=== PATIENT | male | born 1935 | race Caucasian/White ===

== ENCOUNTER 2017-09-04 10:47 | Inpatient (IN) ==
--- NOTE | 2017-09-04 11:52 | Emergency Department Note ---
Disposition Clinical Impression: Hyponatremia GI bleed Qualifiers: GI bleed type/associated pathology: melena Qualified Code(s): K92.1 - Melena Anemia Qualifiers: Anemia type: unspecified type Qualified Code(s): D64.9 - Anemia, unspecified Disposition: Admitted As Inpatient Condition: Fair Referrals: Andrea Rojas Jr, MD [Primary Care Provider] - Forms: ED Satisfaction Letter Time of Disposition: 12:30 General Adult HPI - General Chief complaint: ED Shortness of Breath/Dyspnea Stated complaint: FABRICIO, black stool Time Seen by Provider: 09/04/17 10:56 Source: patient Mode of arrival: ambulatory Limitations: no limitations Nursing Notes Reviewed: Yes Vital Signs Reviewed: Yes - History of Present Illness HPI Narrative: 82-year-old male with a history of CABG on Plavix and aspirin presents for evaluation of dyspnea. Patient also has a history of COPD. Patient states evening he short of breath over the past month. Notes worse with exertion and climbing stairs. Denies any chest pain. Denies any fevers or cough. Patient has noted darker stools over the past week. Patient has history of GI bleed. Denies history of ulcer disease. States he had a colonoscopy in the remote past. Denies any abdominal pain, nausea, vomiting. Patient does live at home. Patient denies any recent falls or head injury. Pain Scale: 0 - Related Data Home Medications Medication Instructions Recorded Confirmed Aspirin 81 mg PO DAILY 01/21/16 09/04/17 Atorvastatin [Lipitor] 40 mg PO HS 01/21/16 09/04/17 Clopidogrel [Plavix] 75 mg PO DAILY 01/21/16 09/04/17 Dutasteride 0.5 mg PO DAILY 01/21/16 09/04/17 Fenofibrate Nanocrystallized 145 mg PO DAILY 01/21/16 09/04/17 [Tricor] Fexofenadine HCl [Allergy Relief] 180 mg PO DAILY 01/21/16 09/04/17 Folic Acid 1 mg PO DAILY 01/21/16 09/04/17 Nitroglycerin [Nitrostat] 0.4 mg SL Q5M PRN 01/21/16 09/04/17 Omeprazole [PriLOSEC] 20 mg PO DAILY 01/21/16 09/04/17 Tamsulosin [Flomax] 0.4 mg PO DAILY 01/21/16 09/04/17 Valsartan [Diovan] 80 mg PO DAILY 01/21/16 09/04/17 Fluticasone Propionate [Flovent 2 puff IJ BID 09/04/17 09/04/17 Hfa] Metoprolol Tartrate [Lopressor] 50 mg PO BID 09/04/17 09/04/17 Allergies Allergy/AdvReac Type Severity Reaction Status Date / Time Penicillins [PCN] Allergy Hives Verified 01/21/16 16:47 All systems ED: reviewed and negative except as stated. Constitutional: Denies: fever Cardiovascular: Denies: chest pain, palpitations Respiratory: Reports: dyspnea. Denies: cough Gastrointestinal: Denies: abdominal pain, nausea, vomiting Past Medical History - Past Medical History Source: patient Medical history: Reports: asthma, COPD, coronary artery disease, hyperlipidemia , hypertension, myocardial infarction Surgical history: Reports: angioplasty/stent, cataract, coronary bypass (CABG) Psychiatric history: Reports: no psych history - Social History Smoking Status: Former smoker Smokeless Tobacco Status: No Alcohol use: Reports: rarely Drug use: Reports: none Physical Exam - General Limitations: no limitations General appearance: alert, in no apparent distress - Head Head exam: atraumatic, normal inspection - Eye Eye exam: Present: normal appearance, EOMI - ENT ENT exam: normal exam, mucous membranes moist - Neck Neck exam: Present: normal inspection, trachea midline - Chest Chest inspection: Present: normal inspection, symmetric chest wall rise - Respiratory Respiratory exam: Present: normal lung sounds bilaterally. Absent: respiratory distress - Cardiovascular Cardiovascular exam: Present: regular rate, normal rhythm. Absent: systolic murmur - Abdominal Exam Abdominal exam: Present: soft, Non-Tender - Rectal Exam Care Tech present during exam: No Rectal exam: Present: normal inspection, normal rectal tone, black stool - Extremities Exam Extremities exam: Present: normal inspection. Absent: pedal edema - Expanded Lower Extremity Exam Neurovascular/Tendon exam: Present: normal capillary refill. Absent: pulse deficit, motor deficit, sensory deficit - Back Exam Back exam: Present: normal inspection - Neurological Exam Neurological exam: Present: alert, CN II-XII intact - Skin Skin exam: Present: warm, dry, intact, normal color. Absent: pallor Course Course Narrative: Patient seen and examined. Patient's dyspnea over the past month. Patient does have risk factors for GI bleed with dark stool. Patient will get basic labs including a type and screen, troponin patient also get a chest x-ray EKG. Disposition likely admission. - Reevaluation(s) Reevaluation #1: Patient seen and examined. Patient's updated on plan of care. We will page endoscopy. Time: 12:37 - Consultations Consultation #1: Discussed the case with Dr. Lugo who will see the patient consult. Time: 12:43 Vital Signs Temperature 98.0 F 09/04/17 10:48 Pulse Rate 75 09/04/17 10:48 Respiratory Rate 16 09/04/17 10:48 Blood Pressure 119/68 09/04/17 10:48 O2 Sat by Pulse Oximetry 98 09/04/17 10:48 Temperature 98.0 F 09/04/17 11:02 Pulse Rate 73 09/04/17 12:53 Respiratory Rate 18 09/04/17 12:53 Blood Pressure 112/51 09/04/17 12:53 O2 Sat by Pulse Oximetry 98 09/04/17 12:53 Oxygen Delivery Oxygen Delivery Room Air Medical Decision Making - MDM Narrative Medical decision making narrative: 82-year-old male presents with dyspnea as well as dark stools. Patient has been having melanotic stools over the past week. No history of GI bleed in the past remote colonoscopy. Patient was evaluated and shows mild drop in his hemoglobin. Patient does not require transfusion. No troponin elevation or EKG changes. Patient's chest x-ray shows atelectasis. Clinically the patient does not have an infection or pneumonia. Patient does have a cold blood in his stool. Patient will be admitted to hospital service for GI bleed. Patient's on Plavix and aspirin due to his history of heart disease. Patient was not given any blood products during the ED course as the patient's been stable. Patient's resting comfortably in multiple evaluations. - Lab Data Lab results reviewed: Yes I reviewed the patient's lab results. Result diagrams: 09/04/17 11:31 09/04/17 11:31 Lab Results 09/04/17 09/04/17 09/04/17 Range/Units 11:31 11:31 11:31 WBC 6.5 (4.3-11.1) K/mcL RBC 2.98 L (4.19-5.50) M/mcL Hgb 9.6 L (12.9-16.9) g/dL Hct 27.8 L (37.5-50.1) % MCV 93.3 (83.0-100.0) fL MCH 32.2 (28.0-33.3) pg MCHC 34.5 (31.6-35.5) g/dL RDW 13.4 (11.5-14.5) % Plt Count 327 (140-400) K/mcL MPV 10.0 (9.4-12.4) fL Immature Gran % 0.9 (0-4) % Seg Neutrophils % 61.4 % Lymphocytes % 24.0 % Monocytes % 11.3 % Eosinophils % 1.9 % Basophils % 0.5 % Neutrophils # 4.0 (1.6-8.9) K/mcL Lymphocytes # 1.6 (0.6-4.6) K/mcL Monocytes # 0.7 (0.0-1.3) K/mcL Eosinophils # 0.1 (0.0-0.6) K/mcL Basophils # 0.0 (0.0-0.2) K/mcL PT 12.8 H (9.4-12.1) Seconds INR 1.1 Sodium 126 L (136-145) mEq/L Potassium 4.6 (3.5-5.1) mEq/L Chloride 98 (98-107) mEq/L Carbon Dioxide 23 (23-29) mEq/L BUN 25 H (8-23) mg/dL Creatinine 1.03 (0.70-1.30) mg/dL Est GFR ( Amer) > 60 (> 60) Est GFR (Non-Af Amer) > 60 (> 60) BUN/Creatinine Ratio 24 (6-26) Glucose 106 H (70-105) mg/dL Calculated Osmolality 267 L (280-300) Calcium 9.7 (8.6-10.3) mg/dL Troponin I < 0.03 (< 0.04) ng/mL B-Natriuretic Peptide (Less than 100) pg/mL Stool Occult Bld Scrn (Negative) Blood Type Antibody Screen 09/04/17 09/04/17 09/04/17 Range/Units 11:31 11:31 11:31 WBC (4.3-11.1) K/mcL RBC (4.19-5.50) M/mcL Hgb (12.9-16.9) g/dL Hct (37.5-50.1) % MCV (83.0-100.0) fL MCH (28.0-33.3) pg MCHC (31.6-35.5) g/dL RDW (11.5-14.5) % Plt Count (140-400) K/mcL MPV (9.4-12.4) fL Immature Gran % (0-4) % Seg Neutrophils % % Lymphocytes % % Monocytes % % Eosinophils % % Basophils % % Neutrophils # (1.6-8.9) K/mcL Lymphocytes # (0.6-4.6) K/mcL Monocytes # (0.0-1.3) K/mcL Eosinophils # (0.0-0.6) K/mcL Basophils # (0.0-0.2) K/mcL PT (9.4-12.1) Seconds INR Sodium (136-145) mEq/L Potassium (3.5-5.1) mEq/L Chloride (98-107) mEq/L Carbon Dioxide (23-29) mEq/L BUN (8-23) mg/dL Creatinine (0.70-1.30) mg/dL Est GFR ( Amer) (> 60) Est GFR (Non-Af Amer) (> 60) BUN/Creatinine Ratio (6-26) Glucose (70-105) mg/dL Calculated Osmolality (280-300) Calcium (8.6-10.3) mg/dL Troponin I (< 0.04) ng/mL B-Natriuretic Peptide 100 H (Less than 100) pg/mL Stool Occult Bld Scrn Positive A (Negative) Blood Type O POSITIVE Antibody Screen NEGATIVE - Radiology Data Radiology results reviewed: Yes I reviewed the patient's radiology results. Chest X-Ray 09/04/17 11:16 IMPRESSION: Worsening scarring/ atelectasis in the bases. Superimposed infection also a consideration. D/ / Chely May MD / Chely May MD Interpreting Provider: Chely May MD - EKG Data EKG #1 EKG attestation: Yes I reviewed and interpreted this EKG. EKG shows normal: sinus rhythm Rate: normal Rhythm: NSR [place]/QRS: right axis deviation, RBBB T wave inversions noted in: v1, v2 Interpretation: no acute changes, nonspecific ST-T wave changes S.B.A.R. - S.B.A.RFilomena Situation: Demographics Background: Presenting Complaint Assessment: Vital Signs, Course and respsone to treatment, Patient/Family Expectation Recommendation: Barrier(s) to disposition, Recommendation based on pending studies, treatments, or consults S.B.A.RFilomena Report Given to: Dr. Markell Alcantar Repor Time: 12:35 Attestation Statement - Attestation Attestation: I, Brayan Klein DO, examined this patient [id number] and my medical decision-making was reviewed with Dr. Vamshi Tirado, Resident Physician. I agree with the documented findings, disposition and treatment plan as described except to the extent set forth below. Please see my progress notes for details.
[2017-09-04 12:05] LABS: INR 1.1; Prothrombin Time 12.8 Seconds (9.4-12.1)
[2017-09-04 12:06] LABS: Basophils % 0.5 %; Eosinophils # 0.1 K/mcL (0.0-0.6); Eosinophils % 1.9 %; Hematocrit 27.8 % (37.5-50.1); Hemoglobin 9.6 g/dL (12.9-16.9); Immature Granulocytes % 0.9 % (0-4); Lymphocytes # 1.6 K/mcL (0.6-4.6); Mean Corpuscular HGB Conc 34.5 g/dL (31.6-35.5); Mean Corpuscular Hemoglobin 32.2 pg (28.0-33.3); Mean Corpuscular Volume 93.3 fL (83.0-100.0); Monocytes # 0.7 K/mcL (0.0-1.3); Monocytes % 11.3 %; Platelet Count 327 K/mcL (140-400); Red Blood Count 2.98 M/mcL (4.19-5.50); Red Cell Distribution Width 13.4 % (11.5-14.5); Segmented Neutrophils % 61.4 %
[2017-09-04 12:16] LABS: BUN/Creatinine Ratio 24 (6-26); Blood Urea Nitrogen 25 mg/dL (8-23); Calcium 9.7 mg/dL (8.6-10.3); Carbon Dioxide 23 mEq/L (23-29); Chloride 98 mEq/L (98-107); Glucose 106 mg/dL (70-105); Osmolality,Calculated 267 (280-300); Potassium 4.6 mEq/L (3.5-5.1); Sodium 126 mEq/L (136-145); Troponin I < 0.03 ng/mL (< 0.04); eGFR For African Americans > 60 (> 60); eGFR For Non-African Americans > 60 (> 60)
[2017-09-04] MEDS ORDERED: Pantoprazole 40 MG VIAL IVP ONE (12:30)
--- NOTE | 2017-09-04 12:38 | Emergency Department Note ---
Disposition Clinical Impression: Anemia Qualifiers: Anemia type: unspecified type Qualified Code(s): D64.9 - Anemia, unspecified GI bleed Qualifiers: GI bleed type/associated pathology: melena Qualified Code(s): K92.1 - Melena Disposition: Admitted As Inpatient Condition: Fair Referrals: Andrea Rojas Jr, MD [Primary Care Provider] - Forms: ED Satisfaction Letter Time of Disposition: 12:38 General Adult HPI - General Chief complaint: ED Shortness of Breath/Dyspnea Stated complaint: FABRICIO, black stool Time Seen by Provider: 09/04/17 10:56 Source: patient Mode of arrival: ambulatory Limitations: no limitations - History of Present Illness Pain Scale: 0 - Related Data Home Medications Medication Instructions Recorded Confirmed Aspirin 81 mg PO DAILY 01/21/16 01/21/16 Atorvastatin [Lipitor] 40 mg PO HS 01/21/16 01/21/16 Budesonide [Pulmicort Flexhaler 180 mcg IH DAILY 01/21/16 01/21/16 180mcg] Clopidogrel [Plavix] 75 mg PO DAILY 01/21/16 01/21/16 Dutasteride 0.5 mg PO DAILY 01/21/16 01/21/16 Fenofibrate Nanocrystallized 145 mg PO DAILY 01/21/16 01/21/16 [Tricor] Fexofenadine HCl [Allergy Relief] 180 mg PO DAILY 01/21/16 01/21/16 Folic Acid 1 mg PO DAILY 01/21/16 01/21/16 Metoprolol [Lopressor] 100 mg PO BID 01/21/16 01/21/16 Nitroglycerin [Nitrostat] 0.4 mg SL Q5M PRN 01/21/16 01/21/16 Omeprazole [PriLOSEC] 20 mg PO DAILY 01/21/16 01/21/16 Tamsulosin [Flomax] 0.4 mg PO DAILY 01/21/16 01/21/16 Triamcinolone Acet 0.1% CRM 1 appl TP BID 01/21/16 01/21/16 [Kenalog] Valsartan [Diovan] 80 mg PO BID 01/21/16 01/21/16 Allergies Allergy/AdvReac Type Severity Reaction Status Date / Time Penicillins [PCN] Allergy Hives Verified 01/21/16 16:47 Constitutional: Denies: fever Cardiovascular: Denies: chest pain, palpitations Respiratory: Reports: dyspnea. Denies: cough Gastrointestinal: Denies: abdominal pain, nausea, vomiting Past Medical History - Past Medical History Medical history: Reports: asthma, COPD, coronary artery disease, hyperlipidemia , hypertension, myocardial infarction Surgical history: Reports: angioplasty/stent, cataract, coronary bypass (CABG) Psychiatric history: Reports: no psych history - Social History Smoking Status: Former smoker Smokeless Tobacco Status: No Alcohol use: Reports: rarely Drug use: Reports: none Physical Exam - General Limitations: no limitations General appearance: alert, in no apparent distress Course Vital Signs Temperature 98.0 F 09/04/17 10:48 Pulse Rate 75 09/04/17 10:48 Respiratory Rate 16 09/04/17 10:48 Blood Pressure 119/68 09/04/17 10:48 O2 Sat by Pulse Oximetry 98 09/04/17 10:48 Temperature 98.0 F 09/04/17 11:02 Pulse Rate 71 09/04/17 12:11 Respiratory Rate 18 09/04/17 12:11 Blood Pressure 111/60 09/04/17 12:11 O2 Sat by Pulse Oximetry 98 09/04/17 12:11 Oxygen Delivery Oxygen Delivery Room Air Medical Decision Making - Lab Data Result diagrams: 09/04/17 11:31 09/04/17 11:31 Lab Results 09/04/17 09/04/17 09/04/17 Range/Units 11:31 11:31 11:31 WBC 6.5 (4.3-11.1) K/mcL RBC 2.98 L (4.19-5.50) M/mcL Hgb 9.6 L (12.9-16.9) g/dL Hct 27.8 L (37.5-50.1) % MCV 93.3 (83.0-100.0) fL MCH 32.2 (28.0-33.3) pg MCHC 34.5 (31.6-35.5) g/dL RDW 13.4 (11.5-14.5) % Plt Count 327 (140-400) K/mcL MPV 10.0 (9.4-12.4) fL Immature Gran % 0.9 (0-4) % Seg Neutrophils % 61.4 % Lymphocytes % 24.0 % Monocytes % 11.3 % Eosinophils % 1.9 % Basophils % 0.5 % Neutrophils # 4.0 (1.6-8.9) K/mcL Lymphocytes # 1.6 (0.6-4.6) K/mcL Monocytes # 0.7 (0.0-1.3) K/mcL Eosinophils # 0.1 (0.0-0.6) K/mcL Basophils # 0.0 (0.0-0.2) K/mcL PT 12.8 H (9.4-12.1) Seconds INR 1.1 Sodium 126 L (136-145) mEq/L Potassium 4.6 (3.5-5.1) mEq/L Chloride 98 (98-107) mEq/L Carbon Dioxide 23 (23-29) mEq/L BUN 25 H (8-23) mg/dL Creatinine 1.03 (0.70-1.30) mg/dL Est GFR ( Amer) > 60 (> 60) Est GFR (Non-Af Amer) > 60 (> 60) BUN/Creatinine Ratio 24 (6-26) Glucose 106 H (70-105) mg/dL Calculated Osmolality 267 L (280-300) Calcium 9.7 (8.6-10.3) mg/dL Troponin I < 0.03 (< 0.04) ng/mL B-Natriuretic Peptide (Less than 100) pg/mL Stool Occult Bld Scrn (Negative) Blood Type Antibody Screen 09/04/17 09/04/17 09/04/17 Range/Units 11:31 11:31 11:31 WBC (4.3-11.1) K/mcL RBC (4.19-5.50) M/mcL Hgb (12.9-16.9) g/dL Hct (37.5-50.1) % MCV (83.0-100.0) fL MCH (28.0-33.3) pg MCHC (31.6-35.5) g/dL RDW (11.5-14.5) % Plt Count (140-400) K/mcL MPV (9.4-12.4) fL Immature Gran % (0-4) % Seg Neutrophils % % Lymphocytes % % Monocytes % % Eosinophils % % Basophils % % Neutrophils # (1.6-8.9) K/mcL Lymphocytes # (0.6-4.6) K/mcL Monocytes # (0.0-1.3) K/mcL Eosinophils # (0.0-0.6) K/mcL Basophils # (0.0-0.2) K/mcL PT (9.4-12.1) Seconds INR Sodium (136-145) mEq/L Potassium (3.5-5.1) mEq/L Chloride (98-107) mEq/L Carbon Dioxide (23-29) mEq/L BUN (8-23) mg/dL Creatinine (0.70-1.30) mg/dL Est GFR ( Amer) (> 60) Est GFR (Non-Af Amer) (> 60) BUN/Creatinine Ratio (6-26) Glucose (70-105) mg/dL Calculated Osmolality (280-300) Calcium (8.6-10.3) mg/dL Troponin I (< 0.04) ng/mL B-Natriuretic Peptide 100 H (Less than 100) pg/mL Stool Occult Bld Scrn Positive A (Negative) Blood Type O POSITIVE Antibody Screen NEGATIVE Attestation Statement - Attestation Attestation: I, Brayan Klein DO, examined this patient [id number] and my medical decision-making was reviewed with Dr. Vamshi Tirado, Resident Physician. I agree with the documented findings, disposition and treatment plan as described except to the extent set forth below. Please see my progress notes for details. 82-year-old male presents to the emergency room multiple vague complaints. Over the last several days to weeks patient is been experiencing some increased work of breathing and going up and down stairs. He denies any chest pain fevers chills nausea vomiting or diarrhea. Denies any headache or vision change. He is on a blood thinner home secondary to chronic atrial fibrillation. Patient denies any falls or trauma. He is describing shortness of breath vomiting with exertion. He also has had dark melenic colored stool. Patient has not had a colonoscopy or EGD completed in greater than 10 years just prior to when his . Patient otherwise resting comfortably in the bed his vital signs are stable. His head is atraumatic his conjunctiva appear to be normal. He was seen by his PCP yesterday and had a hemoglobin of 9.9 at that time. They recommended they come in the emergency room today for further evaluation considering the stool and his complaints. His lungs are clear to auscultation his heart is regular. His abdomen is soft nontender nondistended with no guarding no rigidity no peritoneal-like symptoms. He moves all 4 of his extremities without any difficulty or signs of ataxia or deficit. Pulses are intact in the radial and DP and PT distributions bilaterally and there are symmetrical. Patient is concerning for possible gastric bleed with Hemoccult positive stool. This test will be sent at this time secondary to the discoloration stool. Denies being on any medications or could cause that coloration. He also is concerning for fluid overload versus heart failure. He has not had his pacemaker interrogated and has not been seen by cardiology quite a long time. Patient does appear to be clinically stable at this point but does have concerning etiology considering he does live at home by himself and tries to take care of himself home. He has to go up and down several flights of stairs at his house to take care of his ask of daily living. Full workup including EKG chest x-ray CBC chemistry troponin as well as Hemoccult testing will be ordered at this time. Patient is otherwise stable. Disposition pending the full workup and treatment course. See detailed documentation of the physical exam, medical intervention, medical decision-making and disposition in the resident physician's note. No critical care applied the patient's treatment course at this time. [address] metcalf has accepted the patient wants GI has been consult. Patient has what appears to be symptomatic anemia with another drop in his hemoglobin since yesterday. He is positive for occult blood in the stool. Otherwise remainder of his workup is unremarkable including EKG chest x-ray and laboratory evaluation. Consultation will be placed and patient will be evaluated. Patient otherwise clinically stable. See detailed documentation the physical exam, medical intervention, medical decision-making and disposition. Patient will be observed here in the emergency room until admission process is completed.
[2017-09-04] MEDS ORDERED: Naloxone 0.4 MG/ML INJ IVP PRN (14:46)
--- NOTE | 2017-09-04 16:38 | Internal Med History&Physical ---
Date of Encounter: 09/05/17 Time of Encounter: 16:35 Internal Medicine - H&P: HPI Chief complaint: Shortness of breath, fatigue and black stools History of present illness: Mr. Fofana is a 82 year old male with pmh of COPD, CAD, hyperlipidemia, hypertension presenting with complaints of weakness, shortness of breath and black stools for about a week. Patient notes he has been experiencing increased work of breathing recently on minimal exertion and reports his stools have been progressively darker over the past week to the point that they are now black. He denies any abdominal pain, nausea , vomiting or any other acute symptoms. He went to his PCP who noted his hemoglobin was low and advised him to come to the ER> hemoglobin was 9.6 in the ER and surgery has been consulted for possible endoscopy Past Med Surg Social Fam HX - Past Medical History Medical history: asthma, COPD, coronary artery disease, hyperlipidemia, hypertension, myocardial infarction Psychiatric history: no psych history - Past Surgical History Surgical History: angioplasty/stent, cataract, coronary bypass (CABG) Additional surgical history: 5 stents - Social History Smoking Status: Former smoker Smokeless Tobacco Status: No Alcohol use: rarely Drug use: none - Family History Mother Living Status: Hx Family Cardiac Disorders: No Hx Family Respiratory Disorders: No Hx Family Cancer: No Hx Family GI Disorders: No Hx Family Endocrine Disorder: No Hx Family Neuromuscular Disorders: No Hx Family Neurologic Disorders: No Hx Family HEENT Disorders: No Hx Family Autoimmune Disorders: No Father Living Status: Hx Family Cardiac Disorders: Yes ([place]) Hx Family Respiratory Disorders: No Hx Family Cancer: No Hx Family GI Disorders: No Hx Family Endocrine Disorder: No Hx Family Neuromuscular Disorders: No Hx Family Neurologic Disorders: No Hx Family HEENT Disorders: No Hx Family Autoimmune Disorders: No Internal Medicine - H&P: Meds Aspirin 81 mg PO DAILY 01/21/16 [History] Atorvastatin [Lipitor] 40 mg PO HS 01/21/16 [History] Clopidogrel [Plavix] 75 mg PO DAILY 01/21/16 [History] Dutasteride 0.5 mg PO DAILY 01/21/16 [History] Fenofibrate Nanocrystallized [Tricor] 145 mg PO DAILY 01/21/16 [History] Fexofenadine HCl [Allergy Relief] 180 mg PO DAILY 01/21/16 [History] Folic Acid 1 mg PO DAILY 01/21/16 [History] Nitroglycerin [Nitrostat] 0.4 mg SL Q5M PRN 01/21/16 [History] Omeprazole [PriLOSEC] 20 mg PO DAILY 01/21/16 [History] Tamsulosin [Flomax] 0.4 mg PO DAILY 01/21/16 [History] Valsartan [Diovan] 80 mg PO DAILY 01/21/16 [History] Fluticasone Propionate [Flovent Hfa] 2 puff IJ BID 09/04/17 [History] Metoprolol Tartrate [Lopressor] 50 mg PO BID 09/04/17 [History] 3 Allergy/AdvReac Type Severity Reaction Status Date / Time Penicillins [PCN] Allergy Hives Verified 01/21/16 16:47 All Systems PM: A 10-system review of systems was performed and is negative for pertinent findings except as documented above in the HPI. - Constitutional Constitutional: no chills, no fever(s), no night sweats - EENT Eyes: no change in vision, no discharge, no pain, no photophobia Ears: no ear discharge, no ear pain, no tinnitus Nose, mouth and throat: no dysphagia, no nasal discharge, no neck pain, no sore throat - Cardiovascular Cardiovascular ROS IM: dyspnea on exertion, no chest pain, no diaphoresis, no dyspnea, no lightheadedness, no palpitations, no syncope - Respiratory Respiratory: dyspnea, no cough, no wheezing, no excessive phlegm production - Gastrointestinal Gastrointestinal: melena, no abdominal pain, no diarrhea, no hematemesis, no hematochezia, no nausea, no vomiting - Musculoskeletal Musculoskeletal ROS IM: no numbness, no tingling - Integumentary Integumentary IM: no rash, no unusual bruising - Neurological Neurological ROS: no confusion, no convulsions, no focal weakness, no numbness, no tingling, no tremor(s) - Hematologic/Lymphatic Hematologic/Lymphatic: no easy bruising - Constitutional Vitals: Temp Pulse Resp BP Pulse Ox 98.0 F 75 18 107/93 97 09/04/17 11:02 09/04/17 14:07 09/04/17 14:07 09/04/17 14:07 09/04/17 16:27 - Head Head exam: Present: atraumatic, normocephalic - Eye Eye exam: Present: PERRL, conjuntiva pink, sclera anicteric Pupils: Present: PERRL - Neck Neck exam general surgery: Present: supple, trachea midline. Absent: lymphadenopathy - Respiratory Respiratory exam: Present: CTAB. Absent: accessory muscle use, rales, rhonchi, wheezes - Cardiovascular Cardiovascular exam: Present: RRR, +S1, +S2. Absent: diastolic murmur, gallop, rubs, systolic murmur - GI/Abdominal GI/Abdominal exam: Present: normal bowel sounds, soft, no peritoneal signs. Absent: distended, tenderness - Extremities Exam Extremities exam: Present: warm, radial pulses palpable and symmetrical. Absent : calf tenderness, cyanotic, pedal edema Additional comments: trace pitting edema - Neurological Exam Neurological exam: Present: CN II-XII intact, oriented X3, no focal deficits. Absent: pronater drift, facial droop, speech deficit - Skin Skin exam: Present: dry, intact Internal Med - H&P Results - Labs CBC & Chem 7: 09/05/17 06:44 09/05/17 01:16 - Assessment and plan (1) Acute GI bleeding Current Visit: Yes Status: Acute Assessment and plan: Reports dark stools for a week. On pronix IV BID, clear liquid. Surgery has been consulted. Monitor CBC q 8. Plan to transfuse for hgb less than 7 (2) Symptomatic anemia Current Visit: Yes Status: Acute Assessment and plan: With acute blood loss. See #1 (3) Hyponatremia Current Visit: Yes Status: Acute Assessment and plan: Normal saline at 75 cc/hr (4) Community acquired pneumonia Current Visit: Yes Status: Acute Assessment and plan: CXR shows opacities. Will start on levaquin. Obtain blood cultures Qualifiers: Laterality: unspecified laterality Qualified Code(s): J18.9 - Pneumonia, unspecified organism (5) Hypertension Current Visit: Yes Status: Acute Assessment and plan: Continue valsartan and metoprolol Qualifiers: Qualified Code(s): I10 - Essential (primary) hypertension (6) DVT prophylaxis Current Visit: Yes Status: Acute Assessment and plan: scd (7) Edema Current Visit: Yes Status: Acute Assessment and plan: trace edema and SOB r/o CHF. Obtain 2d echo Qualifiers: Qualified Code(s): R60.9 - Edema, unspecified - Time Spent With Patient Total time spent is greater than 50% in coordination of care (as documented) at patient's floor/unit and/or counseling patient:
[2017-09-04 18:03] LABS: Basophils % 0.5 %; Eosinophils # 0.1 K/mcL (0.0-0.6); Eosinophils % 2.4 %; Hematocrit 26.8 % (37.5-50.1); Hemoglobin 9.1 g/dL (12.9-16.9); Immature Granulocytes % 0.5 % (0-4); Lymphocytes # 1.5 K/mcL (0.6-4.6); Lymphocytes % 27.3 %; Mean Corpuscular Hemoglobin 31.5 pg (28.0-33.3); Mean Corpuscular Volume 92.7 fL (83.0-100.0); Monocytes # 0.4 K/mcL (0.0-1.3); Monocytes % 8.1 %; Neutrophils # 3.3 K/mcL (1.6-8.9); Platelet Count 337 K/mcL (140-400); Red Blood Count 2.89 M/mcL (4.19-5.50); Red Cell Distribution Width 13.3 % (11.5-14.5); Segmented Neutrophils % 61.2 %
[2017-09-04] MEDS: 0.9 % Sodium Chloride 1,000 ML IVC SCH (18:32)
[2017-09-04] MEDS: Pantoprazole 40 MG VIAL IVP SCH (18:32)
[2017-09-04] MEDS: Levofloxacin 750 MG/150 ML 750 MG/150 ML BAG IVPB SCH (18:50)
--- NOTE | 2017-09-04 20:01 | General Surgery Consult Note ---
Date of Encounter: 09/04/17 Time of Encounter: 19:48 History of Present Illness Consult date: 09/04/17 Requesting physician: Vamshi Tirado History of present illness: 82-year-old male referred to surgical services, covering gastroenterology, for further evaluation progressive shortness of breath, increasing fatigue, melena and anemia. The patient describes black tarry stools for the past week. The patient presented to the emergency department for further evaluation of the symptoms described above. Hemoglobin is currently 9.1 with hematocrit 26.8. (H &H yesterday 9.9 and 29.4; hemoglobin in March 1999 1713.8 with hematocrit 42.2) Patient denies any nausea/vomiting; no fever, chills, or abdominal pain. The patient describes approximate 17 pound weight loss in the past year, approximately 8 pounds since February/2017. Past medical history: CAD with prior [place]; status post CABG as well as coronary stents 5. Coronary stents were last placed several years ago. Patient also has asthma, COPD, hyperlipidemia, and hypertension. Surgical history: CABG, coronary stents 5; tonsillectomy; appendectomy Allergies: Penicillin Medications: Aspirin 81 mg by mouth daily Atorvastatin 40 mg by mouth daily at bedtime Clopidogrel 75 mg by mouth daily Dutasteride 0.5 mg by mouth daily Fenofibrate 145 mg by mouth daily Fexofenadine 180 mg by mouth daily Folic acid 1 mg by mouth daily Nitroglycerin 0.4 mg sublingually as needed every 5 minutes x3 for chest pain Omeprazole 20 mg by mouth daily Tamsulosin 0.4 mg by mouth daily Valsartan 80 mg by mouth daily Fluticasone HFA 2 puffs twice a day Metoprolol 50 mg by mouth twice a day Social history: The patient is , still lives independently; former smoker having smoked 1-1/2 packs per day for 20+ years; he quit a proximally 40 years ago. Patient admits to a history of pure consumption though none in the last few years; he denies any illicit drug use. Physical examination: Age-appropriate, in no acute distress The patient has been afebrile, 97.4, pulse 80, respirations 14, blood pressure 124/71. SPO2 on room air 97 100% Skin: Warm, no obvious junk Cardiac: Regular rate, no appreciable murmur Lungs: Clear bilaterally, no abdominal pain and deep inspiration Abdomen: Soft, nontender. No appreciable intra-abdominal masses. No rebound. Active bowel sounds Extremities: No obvious clubbing, cyanosis or edema. Laboratories: White count 5.5, hemoglobin 9.1, hematocrit 26.8. Platelet count 337,000. PT 12.8, INR 1.1 Sodium 126, potassium 4.6, chloride 98, BUN 25, creatinine 1.03. Impression: 82-year-old male, admitted after presenting to [facility] emergency department with progressive shortness of breath, increasing fatigue and approximately one-week history of melena. H&H has fallen to current levels 9.1/26.8. History and clinical findings are consistent with upper GI hemorrhage, PUD/gastritis/duodenitis/GERD. EGD was discussed. The patient is willing to undergo this evaluation. Risks include hemorrhage, infection, cramping abdominal pain, bloating, and perforation. The patient has been consuming clear liquids. The EGD will be scheduled in the a.m. Consent for this procedure has been obtained. Past Med Surg Social Fam HX - Past Medical History Medical history: asthma, COPD, coronary artery disease, hyperlipidemia, hypertension, myocardial infarction Psychiatric history: no psych history - Past Surgical History Surgical History: angioplasty/stent, cataract, coronary bypass (CABG) Additional surgical history: 5 stents - Social History Smoking Status: Former smoker Smokeless Tobacco Status: No Alcohol use: rarely Drug use: none - Family History Mother Living Status: Hx Family Cardiac Disorders: No Hx Family Respiratory Disorders: No Hx Family Cancer: No Hx Family GI Disorders: No Hx Family Endocrine Disorder: No Hx Family Neuromuscular Disorders: No Hx Family Neurologic Disorders: No Hx Family HEENT Disorders: No Hx Family Autoimmune Disorders: No Father Living Status: Hx Family Cardiac Disorders: Yes ([place]) Hx Family Respiratory Disorders: No Hx Family Cancer: No Hx Family GI Disorders: No Hx Family Endocrine Disorder: No Hx Family Neuromuscular Disorders: No Hx Family Neurologic Disorders: No Hx Family HEENT Disorders: No Hx Family Autoimmune Disorders: No Medications and Allergies Aspirin 81 mg PO DAILY 01/21/16 [History] Atorvastatin [Lipitor] 40 mg PO HS 01/21/16 [History] Clopidogrel [Plavix] 75 mg PO DAILY 01/21/16 [History] Dutasteride 0.5 mg PO DAILY 01/21/16 [History] Fenofibrate Nanocrystallized [Tricor] 145 mg PO DAILY 01/21/16 [History] Fexofenadine HCl [Allergy Relief] 180 mg PO DAILY 01/21/16 [History] Folic Acid 1 mg PO DAILY 01/21/16 [History] Nitroglycerin [Nitrostat] 0.4 mg SL Q5M PRN 01/21/16 [History] Omeprazole [PriLOSEC] 20 mg PO DAILY 01/21/16 [History] Tamsulosin [Flomax] 0.4 mg PO DAILY 01/21/16 [History] Valsartan [Diovan] 80 mg PO DAILY 01/21/16 [History] Fluticasone Propionate [Flovent Hfa] 2 puff IJ BID 09/04/17 [History] Metoprolol Tartrate [Lopressor] 50 mg PO BID 09/04/17 [History] 3 Allergy/AdvReac Type Severity Reaction Status Date / Time Penicillins [PCN] Allergy Hives Verified 01/21/16 16:47 Review of Systems All systems PM: The remainder of the systems were reviewed and are negative General Surgery Exam Initial Vital Signs Temp Pulse Resp BP Pulse Ox 98.0 F 75 16 119/68 98 09/04/17 10:48 09/04/17 10:48 09/04/17 10:48 09/04/17 10:48 09/04/17 10:48 Exam Initial Vital Signs Temp Pulse Resp BP Pulse Ox 98.0 F 75 16 119/68 98 09/04/17 10:48 09/04/17 10:48 09/04/17 10:48 09/04/17 10:48 09/04/17 10:48 Results - Labs 09/04/17 17:15 09/04/17 11:31 Abnormal lab results RBC 2.89 M/mcL (4.19-5.50) L 09/04/17 17:15 Hgb 9.1 g/dL (12.9-16.9) L 09/04/17 17:15 Hct 26.8 % (37.5-50.1) L 09/04/17 17:15 PT 12.8 Seconds (9.4-12.1) H 09/04/17 11:31 Sodium 126 mEq/L (136-145) L 09/04/17 11:31 BUN 25 mg/dL (8-23) H 09/04/17 11:31 Glucose 106 mg/dL (70-105) H 09/04/17 11:31 Calculated Osmolality 267 (280-300) L 09/04/17 11:31 B-Natriuretic Peptide 100 pg/mL (Less than 100) H 09/04/17 11:31 Stool Occult Bld Scrn Positive (Negative) A 09/04/17 11:31 All other labs normal. Consult Discharge Plan - Plan Referrals: Andrea Rojas Jr, MD [Primary Care Provider] -
[2017-09-04] MEDS: Beclomethasone 80mcg MDI IH SCH (22:24)
[2017-09-04 22:59] LABS: Basophils % 0.6 %; Eosinophils # 0.2 K/mcL (0.0-0.6); Eosinophils % 3.1 %; Hematocrit 25.2 % (37.5-50.1); Hemoglobin 8.8 g/dL (12.9-16.9); Immature Granulocytes % 0.8 % (0-4); Lymphocytes # 1.4 K/mcL (0.6-4.6); Lymphocytes % 26.2 %; Mean Corpuscular HGB Conc 34.9 g/dL (31.6-35.5); Mean Corpuscular Hemoglobin 32.6 pg (28.0-33.3); Mean Corpuscular Volume 93.3 fL (83.0-100.0); Mean Platelet Volume 9.8 fL (9.4-12.4); Monocytes # 0.6 K/mcL (0.0-1.3); Monocytes % 10.7 %; Platelet Count 269 K/mcL (140-400); Red Cell Distribution Width 13.4 % (11.5-14.5); Segmented Neutrophils % 58.6 %
[2017-09-05] MEDS: Melatonin 3 MG TABLET PO PRN ×2 (01:27→19:43)
[2017-09-05 01:57] LABS: Basophils % 0.5 %; Eosinophils # 0.2 K/mcL (0.0-0.6); Hematocrit 25.5 % (37.5-50.1); Hemoglobin 8.6 g/dL (12.9-16.9); Immature Granulocytes % 0.3 % (0-4); Lymphocytes # 1.1 K/mcL (0.6-4.6); Lymphocytes % 18.8 %; Mean Corpuscular HGB Conc 33.7 g/dL (31.6-35.5); Mean Corpuscular Hemoglobin 31.5 pg (28.0-33.3); Mean Corpuscular Volume 93.4 fL (83.0-100.0); Mean Platelet Volume 10.1 fL (9.4-12.4); Monocytes # 0.6 K/mcL (0.0-1.3); Monocytes % 9.1 %; Neutrophils # 4.2 K/mcL (1.6-8.9); Platelet Count 295 K/mcL (140-400); Red Blood Count 2.73 M/mcL (4.19-5.50); Red Cell Distribution Width 13.3 % (11.5-14.5); Segmented Neutrophils % 68.3 %
[2017-09-05 02:25] LABS: BUN/Creatinine Ratio 22 (6-26); Blood Urea Nitrogen 20 mg/dL (8-23); Carbon Dioxide 23 mEq/L (23-29); Chloride 98 mEq/L (98-107); Glucose 92 mg/dL (70-105); Magnesium 1.1 mg/dL (1.6-2.6); Osmolality,Calculated 264 (280-300); Potassium 4.6 mEq/L (3.5-5.1); Sodium 126 mEq/L (136-145); eGFR For African Americans > 60 (> 60); eGFR For Non-African Americans > 60 (> 60)
[2017-09-05] MEDS: Pantoprazole 40 MG VIAL IVP SCH ×2 (06:17→17:16)
[2017-09-05 07:31] LABS: Basophils % 0.2 %; Eosinophils # 0.1 K/mcL (0.0-0.6); Eosinophils % 2.3 %; Hematocrit 23.4 % (37.5-50.1); Hemoglobin 7.9 g/dL (12.9-16.9); Immature Granulocytes % 0.4 % (0-4); Lymphocytes % 19.8 %; Mean Corpuscular HGB Conc 33.8 g/dL (31.6-35.5); Mean Corpuscular Hemoglobin 30.9 pg (28.0-33.3); Mean Corpuscular Volume 91.4 fL (83.0-100.0); Mean Platelet Volume 10.1 fL (9.4-12.4); Monocytes # 0.5 K/mcL (0.0-1.3); Monocytes % 9.1 %; Neutrophils # 3.6 K/mcL (1.6-8.9); Platelet Count 294 K/mcL (140-400); Red Blood Count 2.56 M/mcL (4.19-5.50); Red Cell Distribution Width 13.4 % (11.5-14.5); Segmented Neutrophils % 68.2 %
--- NOTE | 2017-09-05 07:38 | Electrocardiograph Report ---
[address] [address] Test Date: 2017-09-04 Pat Name: Jefry Fofana Department: 102 Room: [facility] Gender: M Manager Test: : 1935 Requested By: Vmashi Tirado Order Number: [id number] Reading MD: Dipak Grande Measurements Intervals [place] Rate: 71 P: 21 NH: 206 QRS: 266 QRSD: 144 T: 42 QT: 388 QTc: 410 Interpretive Statements SINUS RHYTHM MARKED RIGHT AXIS DEVIATION RIGHT BUNDLE BRANCH BLOCK Electronically Signed On 09-05-2017 7:36:00 EDT by Dipak Grande
[2017-09-05] MEDS: Beclomethasone 80mcg MDI IH SCH ×2 (08:06→20:54)
--- NOTE | 2017-09-05 08:55 | Anesthesia Evaluation PreOp ---
Date of Encounter: 09/05/17 Time of Encounter: 08:53 - Past History Planned Operation: EGD Cardiac History: [place], HTN, Hyperlipidemia, Cardiac Surgery (CABG), Cardiac Stent , Other (CAD) Pulmonary History: Former smoker (quit x 20yrs), COPD PESTICIDE APPLICATOR History: Denies Any Significant HX Other Medical History: GERD Anesthesia History: No Prior Anesthetic Complications, Past Anesthesia (CABG) Alcohol Use: rarely Drug use: none Medications and Allergies Aspirin 81 mg PO DAILY 01/21/16 [History] Atorvastatin [Lipitor] 40 mg PO HS 01/21/16 [History] Clopidogrel [Plavix] 75 mg PO DAILY 01/21/16 [History] Dutasteride 0.5 mg PO DAILY 01/21/16 [History] Fenofibrate Nanocrystallized [Tricor] 145 mg PO DAILY 01/21/16 [History] Fexofenadine HCl [Allergy Relief] 180 mg PO DAILY 01/21/16 [History] Folic Acid 1 mg PO DAILY 01/21/16 [History] Nitroglycerin [Nitrostat] 0.4 mg SL Q5M PRN 01/21/16 [History] Omeprazole [PriLOSEC] 20 mg PO DAILY 01/21/16 [History] Tamsulosin [Flomax] 0.4 mg PO DAILY 01/21/16 [History] Valsartan [Diovan] 80 mg PO DAILY 01/21/16 [History] Fluticasone Propionate [Flovent Hfa] 2 puff IJ BID 09/04/17 [History] Metoprolol Tartrate [Lopressor] 50 mg PO BID 09/04/17 [History] 3 Allergy/AdvReac Type Severity Reaction Status Date / Time Penicillins [PCN] Allergy Hives Verified 01/21/16 16:47 - Meds/Allergy Pre-op Review Medications Reviewed: Yes Allergies Reviewed: Yes Beta Blockers on Current Med List: Yes If Beta Blockers taken, Date/Time (Last Dose taken): 09/04 @ 0835 Anesthesia Results - Labs 09/05/17 06:44 09/05/17 01:16 Anesthesia Exam Selected Entries 09/05/17 08:30 Temperature 97.8 F Pulse Rate 90 Respiratory Rate 16 Blood Pressure 136/76 O2 Sat by Pulse Oximetry 97 NPO (# of Hours): 8 - HEENT Pupil (Motor): EOMI Mallampati: II Oral Opening: Greater than 3 - PESTICIDE APPLICATOR LOC: Oriented PESTICIDE APPLICATOR Motor: Normal RUE, Normal LUE, Normal RLE, Normal LLE, Normal Face PESTICIDE APPLICATOR Sensory: Normal: RUE, LUE, RLE, LLE, Face - Cardiac Rhythm: Regular Murmur: None - Pulmonary Breath Sounds: bilateral Clear Respiratory Effort: Symmetrical Anesthesia Assess/Plan ASA Score: 3 Modified Bismark Scale for Level of Consciousness: Cooperative, oriented, and tranquil Anesthetic Plan: MAC Monitoring Plan: Standard Monitors Recovery Plan: PACU (agrees to MAC)
[2017-09-05] MEDS ORDERED: *HR* Propofol 200 MG/20 ML VIAL IVP ONE (08:59)
[2017-09-05] MEDS ORDERED: *HR* FentaNYL (PF) 100 MCG/2 ML VIAL ONE (09:01)
[2017-09-05] MEDS ORDERED: Tetracaine/Benzocaine/Butamben 200MG/SPRAY (100SPY/BOT) MM ONE (09:46)
[2017-09-05] MEDS: 0.9 % Sodium Chloride 1,000 ML IVC SCH (09:49)
[2017-09-05] MEDS: Loratadine 10 MG TABLET PO SCH (11:05)
[2017-09-05] MEDS: Folic Acid 1 MG TABLET PO SCH (11:05)
[2017-09-05] MEDS: Finasteride 5 MG TABLET PO SCH (11:05)
[2017-09-05] MEDS: Valsartan 80 MG TABLET PO SCH (11:06)
[2017-09-05] MEDS: Fenofibrate 54 MG TABLET PO SCH (11:06)
[2017-09-05] MEDS ORDERED: Isovue-370 500 ML INFUS..BTL IV ONE (11:32)
--- NOTE | 2017-09-05 11:41 | Event Note ---
Date of Encounter: 09/05/17 Time of Encounter: 11:38 Discussed EGD findings with patient and his daughter. 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 Treatment options include further diagnosis with treatment as indicated or palliative care. The metastatic workup, if the patient is willing to consider intervention, includes CT thorax, abdomen and pelvis. Biopsies obtained during the EGD are pending. Potential transfer to [facility] was also discussed.
--- NOTE | 2017-09-05 15:46 | Internal Med Progress Note ---
Date of Encounter: 09/05/17 Time of Encounter: 10:00 - Assessment and plan (1) Acute GI bleeding Current Visit: Yes Status: Acute Assessment and plan: Hb trending down. No noted episode of dark stool today, last bowel movement dark yesterday. Will monitor. Tranfuse for Hb <7. Surgery on board. s/p EGD this AM. Fungating mass with bleeding noted on EGD noted. Biopsy taken. Pending pathology reports. Could be malignancy. Will discuss with family regarding the extent of workup and degree of intervention consider oncology consult. F/u CT chest and abdomen/pelvis. (2) Hyponatremia Current Visit: Yes Status: Acute Assessment and plan: Will obtain serum osmo, urine sodium. Suspicious for malignancy etiology given mass noted in esophagus. Continue IVF. (3) Symptomatic anemia Current Visit: Yes Status: Acute Assessment and plan: Continue to monitor CBC. Transfuse if patient continues to actively bleed or Hb <7. S/p EGD. (4) Community acquired pneumonia Current Visit: Yes Status: Suspected Assessment and plan: CXR shows opacities. PNA vs. malignancy? c/w levaquin for now. No leukocytosis, afebrile. f/u blood cultures Qualifiers: Laterality: unspecified laterality Qualified Code(s): J18.9 - Pneumonia, unspecified organism (5) Hypertension Current Visit: Yes Status: Acute Assessment and plan: Continue valsartan and metoprolol Qualifiers: Hypertension type: essential hypertension Qualified Code(s): I10 - Essential (primary) hypertension (6) Edema Current Visit: Yes Status: Chronic Assessment and plan: trace edema and SOB r/o CHF. ECHO pending Qualifiers: Qualified Code(s): R60.9 - Edema, unspecified - Time Spent With Patient Total time spent is greater than 50% in coordination of care (as documented) at patient's floor/unit and/or counseling patient: - Subjective Interval history: Reports feeling better today. Denies any dark stool today, last bowel movement was yesterday and stool was dark then. - Constitutional Vitals: Temp Pulse Resp BP Pulse Ox 97.4 F L 85 16 147/74 95 09/05/17 15:33 09/05/17 15:33 09/05/17 15:33 09/05/17 15:33 07/21/18 15:33 General: Alert and oriented. Skin: Normal color, no rash, no lesions. HEENT: EOMI, pupils equal, round and reactive. Cardiovascular: Regular rate. No murmurs appreciated. Lungs:Normal breath sounds, no wheezes or crackles. Abdomen:Soft, non-tender, no rigidity. Extremities:No deformity, no edema or tenderness, no joint swelling or clubbing. Neurological:Normal cognition, no weakness, no numbness. Rest of the physical exam is non contributory Internal Medicine: Result - Labs CBC & Chem 7: 09/05/17 06:44 09/05/17 01:16 Labs: Short CBC 09/04/17 09/04/17 09/05/17 Range/Units 17:15 22:49 01:16 WBC 5.5 5.2 6.1 (4.3-11.1) K/mcL Hgb 9.1 L 8.8 L 8.6 L (12.9-16.9) g/dL Hct 26.8 L 25.2 L 25.5 L (37.5-50.1) % Plt Count 337 269 295 (140-400) K/mcL Neutrophils # 3.3 3.0 4.2 (1.6-8.9) K/mcL 09/05/17 Range/Units 06:44 WBC 5.3 (4.3-11.1) K/mcL Hgb 7.9 L (12.9-16.9) g/dL Hct 23.4 L (37.5-50.1) % Plt Count 294 (140-400) K/mcL Neutrophils # 3.6 (1.6-8.9) K/mcL BMP 09/05/17 01:16 Sodium 126 L Potassium 4.6 Chloride 98 Carbon Dioxide 23 BUN 20 Creatinine 0.89 Glucose 92 Calcium 9.0 - ABG Interpretation ABG results: PT/INR, D-dimer PT 12.8 Seconds (9.4-12.1) H 09/04/17 11:31 Consult Discharge Plan - Plan Referrals: Andrea Rojas Jr, MD [Primary Care Provider] -
[2017-09-05 16:03] LABS: Basophils % 0.3 %; Eosinophils # 0.1 K/mcL (0.0-0.6); Eosinophils % 1.4 %; Hematocrit 25.3 % (37.5-50.1); Hemoglobin 8.7 g/dL (12.9-16.9); Immature Granulocytes % 0.8 % (0-4); Lymphocytes # 1.1 K/mcL (0.6-4.6); Lymphocytes % 16.4 %; Mean Corpuscular HGB Conc 34.4 g/dL (31.6-35.5); Mean Corpuscular Hemoglobin 32.5 pg (28.0-33.3); Mean Corpuscular Volume 94.4 fL (83.0-100.0); Mean Platelet Volume 9.7 fL (9.4-12.4); Monocytes # 0.5 K/mcL (0.0-1.3); Monocytes % 7.7 %; Neutrophils # 4.7 K/mcL (1.6-8.9); Platelet Count 296 K/mcL (140-400); Red Blood Count 2.68 M/mcL (4.19-5.50); Red Cell Distribution Width 13.4 % (11.5-14.5); Segmented Neutrophils % 73.4 %
[2017-09-05] MEDS: Levofloxacin 750 MG/150 ML 750 MG/150 ML BAG IVPB SCH (18:06)
[2017-09-05] MEDS ORDERED: Acetaminophen 325 MG TABLET PO PRN (18:16)
[2017-09-05 22:47] LABS: Basophils % 0.2 %; Eosinophils # 0.2 K/mcL (0.0-0.6); Hematocrit 23.5 % (37.5-50.1); Hemoglobin 8.2 g/dL (12.9-16.9); Immature Granulocytes % 0.7 % (0-4); Lymphocytes % 17.3 %; Mean Corpuscular HGB Conc 34.9 g/dL (31.6-35.5); Mean Corpuscular Hemoglobin 32.4 pg (28.0-33.3); Mean Corpuscular Volume 92.9 fL (83.0-100.0); Mean Platelet Volume 9.5 fL (9.4-12.4); Monocytes # 0.5 K/mcL (0.0-1.3); Monocytes % 8.8 %; Platelet Count 264 K/mcL (140-400); Red Blood Count 2.53 M/mcL (4.19-5.50); Red Cell Distribution Width 13.2 % (11.5-14.5)
[2017-09-06 02:09] LABS: Basophils % 0.3 %; Eosinophils # 0.2 K/mcL (0.0-0.6); Eosinophils % 3.2 %; Hematocrit 23.3 % (37.5-50.1); Hemoglobin 7.9 g/dL (12.9-16.9); Immature Granulocytes % 0.7 % (0-4); Lymphocytes % 17.3 %; Mean Corpuscular HGB Conc 33.9 g/dL (31.6-35.5); Mean Corpuscular Hemoglobin 31.2 pg (28.0-33.3); Mean Corpuscular Volume 92.1 fL (83.0-100.0); Mean Platelet Volume 9.7 fL (9.4-12.4); Monocytes # 0.5 K/mcL (0.0-1.3); Neutrophils # 4.1 K/mcL (1.6-8.9); Platelet Count 289 K/mcL (140-400); Red Blood Count 2.53 M/mcL (4.19-5.50); Red Cell Distribution Width 13.3 % (11.5-14.5); Segmented Neutrophils % 70.5 %
[2017-09-06 02:26] LABS: BUN/Creatinine Ratio 15 (6-26); Blood Urea Nitrogen 12 mg/dL (8-23); Calcium 8.3 mg/dL (8.6-10.3); Carbon Dioxide 21 mEq/L (23-29); Chloride 97 mEq/L (98-107); Glucose 103 mg/dL (70-105); Osmolality,Calculated 256 (280-300); Potassium 4.1 mEq/L (3.5-5.1); Sodium 123 mEq/L (136-145); eGFR For African Americans > 60 (> 60); eGFR For Non-African Americans > 60 (> 60)
[2017-09-06] MEDS: Pantoprazole 40 MG VIAL IVP SCH (05:48)
[2017-09-06 07:11] LABS: Basophils % 0.5 %; Eosinophils # 0.2 K/mcL (0.0-0.6); Eosinophils % 3.5 %; Hematocrit 26.2 % (37.5-50.1); Hemoglobin 9.1 g/dL (12.9-16.9); Immature Granulocytes % 0.5 % (0-4); Lymphocytes # 1.3 K/mcL (0.6-4.6); Mean Corpuscular HGB Conc 34.7 g/dL (31.6-35.5); Mean Corpuscular Hemoglobin 31.7 pg (28.0-33.3); Mean Corpuscular Volume 91.3 fL (83.0-100.0); Mean Platelet Volume 9.5 fL (9.4-12.4); Monocytes # 0.5 K/mcL (0.0-1.3); Monocytes % 7.9 %; Neutrophils # 4.5 K/mcL (1.6-8.9); Platelet Count 328 K/mcL (140-400); Red Blood Count 2.87 M/mcL (4.19-5.50); Red Cell Distribution Width 13.5 % (11.5-14.5); Segmented Neutrophils % 68.6 %
[2017-09-06] MEDS ORDERED: 0.9 % Sodium Chloride 1,000 ML IVC SCH (07:45)
[2017-09-06] MEDS: Beclomethasone 80mcg MDI IH SCH (08:07)
[2017-09-06] MEDS ORDERED: 0.9 % Sodium Chloride 500 ML IVC ONE (08:07)
[2017-09-06 08:11] LABS: Thyroid Stimulating Hormone 3.058 mcIU/mL (0.340-5.600)
[2017-09-06] MEDS ORDERED: 0.9 % Sodium Chloride 500 ML ONE (08:25)
[2017-09-06] MEDS: Folic Acid 1 MG TABLET PO SCH (08:28)
[2017-09-06] MEDS: Valsartan 80 MG TABLET PO SCH (08:28)
[2017-09-06] MEDS: Fenofibrate 54 MG TABLET PO SCH (08:28)
[2017-09-06] MEDS: Loratadine 10 MG TABLET PO SCH (08:28)
[2017-09-06] MEDS: Finasteride 5 MG TABLET PO SCH (08:28)
[2017-09-06 11:53] VITALS: BP 135/75
--- NOTE | 2017-09-06 14:13 | Discharge Summary ---
- NOTES TO OUTPATIENT PROVIDER Notes to Outpatient Provider: f/u Hb and esophageal mass biopsy. One episode of hypotension this AM. Will hold BP medications. Orders not resulted at time of discharge: Pending orders 09/04/17 17:15 Culture,Blood [BC] Routine 09/05/17 09:19 Surgical Pathology [PTH] Routine Date of Encounter: 09/06/17 Time of Encounter: 11:00 - Discharge Diagnosis (1) Acute GI bleeding Priority: Primary Status: Acute Assessment and Plan: s/p EGD 09/05/17. Fungating mass with bleeding noted on EGD noted. Biopsy taken. Pending pathology reports. CT chest and abdomen/pelvis noted. Discussed with family and sugeon Dr. Lugo. Agreed that the best option for patient would be to transfer to [facility]. Called [facility] transferred center with accepting physician Dr. Truong Plan to transfer possible this evening. (2) Hyponatremia Priority: Secondary Status: Chronic Assessment and Plan: Unsure of chronicity, likely chronic. Na 126 on presentation. Asymptomatic. Serum osmo 259. Suspicious for malignancy etiology given mass noted in esophagus. Continue IVF support. Monitor BMPs (3) Symptomatic anemia Priority: Primary Status: Acute Assessment and Plan: Symptoms resolved. Continue to monitor CBC. Transfuse if patient continues to actively bleed or Hb <7. S/p EGD. (4) Community acquired pneumonia Priority: Secondary Status: Suspected Assessment and Plan: CXR shows opacities. Suspected PNA vs. malignancy? c/w levaquin for now. No leukocytosis, afebrile. f/u blood cultures Qualifiers: Laterality: unspecified laterality Qualified Code(s): J18.9 - Pneumonia, unspecified organism (5) Hypertension Priority: Secondary Status: Acute Assessment and Plan: On valsartan and metoprolol, one episode of hypotension with BP <90 systolic this AM but other times BP high. Currently normotensive. Will discontinue both medications now. Monitor BP. Resume if needed. Qualifiers: Hypertension type: essential hypertension Qualified Code(s): I10 - Essential (primary) hypertension (6) Edema Priority: Secondary Status: Chronic Assessment and Plan: trace edema and SOB. 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 Fofana is a 82 year old male with PMH HTN, and CAD s/p CABG 10 years ago presented with CLARKE and several weeks of melena. Found to have Hb 9 on presentation and was trended down. Patient underwent EGD 09/05 and found to have a large bleeding esophageal mass, likely malignancy. Patient clinically stable and in no apparent distress. Discussed with family and surgeon Dr. Lugo and agreed that it is best for patient to be transferred to [facility] for further management. [facility] called and plan to transfer patient out today if possible to Dr. Truong at [facility]. In addition, patient's Na was 126 on admission, unsure of chronicity. Started on IVF, please monitor Na. Patient is completely asymptomatic. Discharge discussed with: patient, family, nurse - Time Spent with Patient Total time spent providing and/or coordinating discharge services: Greater than 30 minutes - Discharge Medications Home Medications: Aspirin 81 mg PO DAILY 01/21/16 [History] Atorvastatin [Lipitor] 40 mg PO HS 01/21/16 [History] Dutasteride 0.5 mg PO DAILY 01/21/16 [History] Fenofibrate Nanocrystallized [Tricor] 145 mg PO DAILY 01/21/16 [History] Fexofenadine HCl [Allergy Relief] 180 mg PO DAILY 01/21/16 [History] Folic Acid 1 mg PO DAILY 01/21/16 [History] Nitroglycerin [Nitrostat] 0.4 mg SL Q5M PRN 01/21/16 [History] Omeprazole [PriLOSEC] 20 mg PO DAILY 01/21/16 [History] Tamsulosin [Flomax] 0.4 mg PO DAILY 01/21/16 [History] Fluticasone Propionate [Flovent Hfa] 2 puff IJ BID 09/04/17 [History] Metoprolol Tartrate [Lopressor] 50 mg PO BID 09/04/17 [History] Allergies/Adverse Reactions: 3 Allergy/AdvReac Type Severity Reaction Status Date / Time Penicillins [PCN] Allergy Hives Verified 01/21/16 16:47 Date of admission: 09/04/17 14:58 Primary care physician: Andrea Rojas Jr, MD Consults: 09/04/17 16:04 Consult to Nutrition [CONS] Routine Comment: Consulting Provider: NUTRITION Reason for Dietary Consult: MST Score - Constitutional Vitals: Temp Pulse Resp BP Pulse Ox 97.5 F L 88 16 135/75 98 09/06/17 11:51 09/06/17 11:51 09/06/17 11:51 09/06/17 11:51 09/06/17 11:51 General: Alert and oriented. No acute distress. Skin: Normal color, no rash, no lesions. HEENT: EOMI, pupils equal, round and reactive. Cardiovascular: Regular rate. No murmurs appreciated. Lungs:Normal breath sounds, no wheezes or crackles. Abdomen:Soft, non-tender, no rigidity. Extremities:No deformity, no edema or tenderness, no joint swelling or clubbing. Neurological:Normal cognition, no weakness, no numbness. Rest of the physical exam is non contributory - Patient Status Disposition: Transfer Critical Access Hosp Condition: Fair Overall status at discharge: patient is progressing back to baseline - Discharge Instructions Follow Up With: Andrea Rojas Jr, MD [Primary Care Provider] - - Diet and Activity Activity: resume usual activities as tolerated - VTE Documentation of Mechanical Device: Intermittent pneumatic compression device
--- NOTE | 2017-09-06 15:38 | Physician Discharge Referral ---
ExtendedCare Referral Info Transfer To: [facility] care facility. [facility] - Diagnosis (1) Acute GI bleeding Status: Acute (2) Hyponatremia Status: Chronic (3) Symptomatic anemia Status: Acute (4) Community acquired pneumonia Status: Suspected (5) Hypertension Status: Acute (6) Edema Status: Chronic (7) CAD (coronary artery disease) of artery bypass graft Status: Chronic - Transfer Medications Home Medications: Aspirin 81 mg PO DAILY 01/21/16 [History] Atorvastatin [Lipitor] 40 mg PO HS 01/21/16 [History] Dutasteride 0.5 mg PO DAILY 01/21/16 [History] Fenofibrate Nanocrystallized [Tricor] 145 mg PO DAILY 01/21/16 [History] Fexofenadine HCl [Allergy Relief] 180 mg PO DAILY 01/21/16 [History] Folic Acid 1 mg PO DAILY 01/21/16 [History] Nitroglycerin [Nitrostat] 0.4 mg SL Q5M PRN 01/21/16 [History] Omeprazole [PriLOSEC] 20 mg PO DAILY 01/21/16 [History] Tamsulosin [Flomax] 0.4 mg PO DAILY 01/21/16 [History] Fluticasone Propionate [Flovent Hfa] 2 puff IJ BID 09/04/17 [History] Metoprolol Tartrate [Lopressor] 50 mg PO BID 09/04/17 [History] Allergies/Adverse Reactions: 3 Allergy/AdvReac Type Severity Reaction Status Date / Time Penicillins [PCN] Allergy Hives Verified 01/21/16 16:47 - Respiratory Orders Smoking Cessation: Smoking cessation has been advised. For more information, call the [place] Tobacco Quit Line at 3-095-GIOKNOW. - Diet Orders Mechanical Soft CERTIFICATION: I certify that the transfer of the above named patient to an Extended Care Facility is necessary for the continuing treatment of the diagnosis listed. The above information is true and accurate reflection of patient's current condition. Confidential - Redisclosure prohibited without a patient's written consent.
[2017-09-06 15:52] LABS: Basophils % 0.2 %; Eosinophils # 0.1 K/mcL (0.0-0.6); Eosinophils % 1.8 %; Hematocrit 26.6 % (37.5-50.1); Hemoglobin 9.2 g/dL (12.9-16.9); Immature Granulocytes % 0.5 % (0-4); Lymphocytes # 1.2 K/mcL (0.6-4.6); Lymphocytes % 21.2 %; Mean Corpuscular HGB Conc 34.6 g/dL (31.6-35.5); Mean Corpuscular Hemoglobin 32.3 pg (28.0-33.3); Mean Corpuscular Volume 93.3 fL (83.0-100.0); Mean Platelet Volume 9.7 fL (9.4-12.4); Monocytes # 0.5 K/mcL (0.0-1.3); Monocytes % 9.4 %; Neutrophils # 3.7 K/mcL (1.6-8.9); Platelet Count 303 K/mcL (140-400); Red Blood Count 2.85 M/mcL (4.19-5.50); Red Cell Distribution Width 13.4 % (11.5-14.5); Segmented Neutrophils % 66.9 %
== END 2017-09-06 16:05 | disposition critical access hospital (66) | DRG 374 ==
LOC: 3NENU 10:47 → EMEROO 10:47 → SUATTDRO 14:58 → 3NENU 15:18
PROVIDERS: ADMIT Student in an Organized Health Care Education/Training Program; ATTEND Student in an Organized Health Care Education/Training Program
PROC: ENDOEBX (2017-09-05 09:00)

== ENCOUNTER 2017-11-25 09:18 | Observation (INO) ==
--- NOTE | 2017-11-25 09:50 | Emergency Department Note ---
Disposition Clinical Impression: Esophageal cancer, Chemotherapy induced neutropenia, Hyponatremia, Symptomatic anemia, Epigastric pain Disposition: Admitted As Inpatient Condition: Fair Referrals: Andrea Rojas Jr, MD [Primary Care Provider] - Forms: ED Satisfaction Letter General Adult HPI - General Chief complaint: ED Fall Stated complaint: Fall Time Seen by Provider: 11/25/17 09:29 Nursing Notes Reviewed: Yes Vital Signs Reviewed: Yes - History of Present Illness Pain Scale: 0 - Related Data Home Medications Medication Instructions Recorded Confirmed Aspirin 81 mg PO DAILY 01/21/16 11/19/17 Atorvastatin [Lipitor] 40 mg PO HS 01/21/16 11/19/17 Dutasteride 0.5 mg PO DAILY 01/21/16 11/19/17 Fenofibrate Nanocrystallized 145 mg PO DAILY 01/21/16 11/19/17 [Tricor] Fexofenadine HCl [Allergy Relief] 180 mg PO DAILY 01/21/16 11/19/17 Folic Acid 1 mg PO DAILY 01/21/16 11/19/17 Nitroglycerin [Nitrostat] 0.4 mg SL Q5M PRN 01/21/16 11/19/17 Omeprazole [PriLOSEC] 20 mg PO DAILY 01/21/16 11/19/17 Fluticasone Propionate [Flovent 2 puff IJ BID 09/04/17 11/19/17 Hfa] Clopidogrel [Plavix] 75 mg PO DAILY 10/07/17 11/19/17 Previous Rx's Medication Instructions Recorded Promethazine [Phenergan] 0.5 - 1 tab PO Q6HR PRN #30 tablet 10/08/17 Magic Mouthwash [Magic Mouthwash 10 ml PO QID PRN #240 ml 10/27/17 BLM] Metoprolol [Lopressor] 25 mg PO BID #60 tablet 10/29/17 0.9 % Sodium Chloride 1,500 ml IV ONCE #2 iv.soln 11/05/17 Loperamide [Imodium] 2 mg PO Q4H #30 capsule 11/05/17 Ondansetron [Zofran ODT] 8 mg SL Q8H PRN 1 Days #60 tab 11/05/17 Sucralfate [Carafate] 1 gm PO QIDAC #120 tablet 11/10/17 Oxycodone HCl 5 mg PO Q6H PRN 15 Days #60 tablet 11/23/17 Walker - Rollator [ROLLATOR] 1 each .ROUTE AD #1 each 11/23/17 Allergies Allergy/AdvReac Type Severity Reaction Status Date / Time Penicillins [PCN] Allergy Hives Verified 11/17/17 09:01 Past Medical History - Past Medical History Medical history: Reports: asthma, COPD, coronary artery disease, hyperlipidemia , hypertension, myocardial infarction Surgical history: Reports: angioplasty/stent, cataract, coronary bypass (CABG) Psychiatric history: Reports: no psych history - Social History Smoking Status: Former smoker Smokeless Tobacco Status: No Alcohol use: Reports: rarely Drug use: Reports: none Course Vital Signs Temperature 98.5 F 11/25/17 09:23 Pulse Rate 113 11/25/17 09:23 Respiratory Rate 18 11/25/17 09:23 Blood Pressure 120/67 11/25/17 09:23 O2 Sat by Pulse Oximetry 97 11/25/17 09:23 Temperature 98.5 F 11/25/17 11:00 Pulse Rate 98 11/25/17 11:09 Respiratory Rate 16 11/25/17 11:09 Blood Pressure 124/62 11/25/17 11:09 O2 Sat by Pulse Oximetry 100 11/25/17 11:09 Oxygen Delivery Oxygen Delivery Room Air Medical Decision Making - [facility] Narrative Medical decision making narrative: 1048 hrs.: Patient's are complaining of some heartburn. Repeat an EKG. He has some ST segment abnormalities but not a true STEMI. We are N out on a troponin to a nitroglycerin trial placed an IV and then reassess. He is in agreement this plan. Head CT 11/25/17 09:29 IMPRESSION: No acute intracranial abnormality. D/ / Junito Novak MD / Junito Novak MD Interpreting Provider: Junito Novak MD Chest X-Ray 11/25/17 10:49 IMPRESSION: Stable appearance of the chest without acute cardiopulmonary process identified. D/ / Andre Mckee MD / Andre Mckee MD Interpreting Provider: Andre Mckee MD 1151 hrs.: Patient had one nitroglycerin. And changing was chest pain. But he said he does not like the way makes him feels it gives him headaches and he is refused any more. Were in weight on his lab work. He said he would like something for her stomach is he thinks it is that is we will give him some Maalox and then reassess. 1300 hrs.: His troponin is elevated 0.08 work and repeat EKG spoke with hospitalist for admission. Patient's also supposed get his fluids today at [facility] so we will do that hospital so wanted potassium added on to that which we will do. - Lab Data Result diagrams: 11/25/17 11:21 11/25/17 11:21 Lab Results 11/25/17 11/25/17 11/25/17 Range/Units 11:21 11:21 11:21 WBC 0.3 L* (4.3-11.1) K/mcL RBC 2.52 L (4.19-5.50) M/mcL Hgb 7.4 L (12.9-16.9) g/dL Hct 22.0 L (37.5-50.1) % MCV 87.3 (83.0-100.0) fL MCH 29.4 (28.0-33.3) pg MCHC 33.6 (31.6-35.5) g/dL RDW 15.4 H (11.5-14.5) % Plt Count 145 (140-400) K/mcL MPV 10.8 (9.4-12.4) fL Immature Gran % 9.1 H (0-4) % Seg Neutrophils % 33.3 % Lymphocytes % 18.2 % Monocytes % 39.4 % Eosinophils % 0.0 % Basophils % 0.0 % Neutrophils # 0.1 L (1.6-8.9) K/mcL Lymphocytes # 0.1 L (0.6-4.6) K/mcL Monocytes # 0.1 (0.0-1.3) K/mcL Eosinophils # 0.0 (0.0-0.6) K/mcL Basophils # 0.0 (0.0-0.2) K/mcL Platelet Estimate Normal (Normal) PT 13.9 H (9.4-12.1) Seconds INR 1.2 APTT 27.1 (26.0-36.0) Seconds Sodium 130 L (136-145) mEq/L Potassium 3.0 L (3.5-5.1) mEq/L Chloride 97 L (98-107) mEq/L Carbon Dioxide 24 (23-29) mEq/L BUN 20 (8-23) mg/dL Creatinine 0.79 (0.70-1.30) mg/dL Est GFR ( Amer) > 60 (> 60) Est GFR (Non-Af Amer) > 60 (> 60) BUN/Creatinine Ratio 25 (6-26) Glucose 94 (70-105) mg/dL Calculated Osmolality 272 L (280-300) Calcium 8.1 L (8.6-10.3) mg/dL Phosphorus 1.7 L (2.7-4.5) mg/dL Magnesium 1.0 L (1.6-2.6) mg/dL Troponin I 0.08 H* (< 0.04) ng/mL Attestation Statement - Attestation Attestation: This documentation is done with the assistance of Dragon dictation. Despite efforts made to ensure accuracy, there may be inaccuracies in private equity analyst or spelling and typographical errors. I examined this patient and my medical decision-making was reviewed with the Resident Physician. I agree with the documented findings, disposition and treatment plan as described except to the extent set forth below. Patient seen and evaluated on arrival with EMS and Dr. Prajapati, agree with his evaluation management plan, supervise care the patient's stay. Patient was walking into his kitchen this point get a couple coffee. He had what he said describes a mechanical fall. He struck the top left side of his head on a cabinet. Did not lose consciousness denies any other injuries. He does have a small hematoma abrasion to the scalp on the left top side. Also on his lip denies any other pain denies loss consciousness no neuro deficits. The CT of his head. I also did have social media marketing analyst touch base with [facility] needs any resources at home. He said he is supposed to use a walker but was not using it this morning. He has no neuro deficits, he is alert to person place and time GCS is 15. He is in agreement with this plan.
--- NOTE | 2017-11-25 10:08 | Emergency Department Note ---
Disposition Clinical Impression: Chemotherapy induced neutropenia, Hyponatremia, Symptomatic anemia, Epigastric pain Esophageal cancer Qualifiers: Malignant neoplasm of esophagus location: unspecified location Qualified Code(s ): C15.9 - Malignant neoplasm of esophagus, unspecified Disposition: Admitted As Inpatient Condition: Fair Referrals: Andrea Rojas Jr, MD [Primary Care Provider] - Forms: ED Satisfaction Letter Time of Disposition: 13:43 Fall HPI - General Chief Complaint: ED Fall Stated Complaint: Fall Time Seen by Provider: 11/25/17 09:29 Source: patient Limitations: no limitations Nursing Notes Reviewed: Yes Vital Signs Reviewed: Yes - History of Present Illness HPI Narrative: Patient presents to the ED today after a mechanical fall. Patient states that he recently got a walker when he has previously been using a cane. States he got tripped up and fell with his head into a cabinet. No loss of consciousness. Has a small hematoma to his left parietal area. No headache or neck pain. No changes in vision. No chest pain or shortness of breath. Patient has had some epigastric abdominal pain. States that he is getting radiation therapy to his esophagus for esophageal cancer. He did finish chemotherapy last week. States he has no change from baseline. Is not on any blood thinners. - Related Data Home Medications Medication Instructions Recorded Confirmed Aspirin 81 mg PO DAILY 01/21/16 11/19/17 Atorvastatin [Lipitor] 40 mg PO HS 01/21/16 11/19/17 Dutasteride 0.5 mg PO DAILY 01/21/16 11/19/17 Fenofibrate Nanocrystallized 145 mg PO DAILY 01/21/16 11/19/17 [Tricor] Fexofenadine HCl [Allergy Relief] 180 mg PO DAILY 01/21/16 11/19/17 Folic Acid 1 mg PO DAILY 01/21/16 11/19/17 Nitroglycerin [Nitrostat] 0.4 mg SL Q5M PRN 01/21/16 11/19/17 Omeprazole [PriLOSEC] 20 mg PO DAILY 01/21/16 11/19/17 Fluticasone Propionate [Flovent 2 puff IJ BID 09/04/17 11/19/17 Hfa] Clopidogrel [Plavix] 75 mg PO DAILY 10/07/17 11/19/17 Previous Rx's Medication Instructions Recorded Promethazine [Phenergan] 0.5 - 1 tab PO Q6HR PRN #30 tablet 10/08/17 Magic Mouthwash [Magic Mouthwash 10 ml PO QID PRN #240 ml 10/27/17 BLM] Metoprolol [Lopressor] 25 mg PO BID #60 tablet 10/29/17 0.9 % Sodium Chloride 1,500 ml IV ONCE #2 iv.soln 11/05/17 Loperamide [Imodium] 2 mg PO Q4H #30 capsule 11/05/17 Ondansetron [Zofran ODT] 8 mg SL Q8H PRN 1 Days #60 tab 11/05/17 Sucralfate [Carafate] 1 gm PO QIDAC #120 tablet 11/10/17 Oxycodone HCl 5 mg PO Q6H PRN 15 Days #60 tablet 11/23/17 Walker - Rollator [ROLLATOR] 1 each .ROUTE AD #1 each 11/23/17 Allergies Allergy/AdvReac Type Severity Reaction Status Date / Time Penicillins [PCN] Allergy Hives Verified 11/17/17 09:01 Review of Systems: As reviewed in the HPI. All other systems reviewed are negative or normal. Fall PMH - Past Medical History Medical history: Reports: asthma, COPD, coronary artery disease, hyperlipidemia , hypertension, myocardial infarction Surgical history: Reports: angioplasty/stent, cataract, coronary bypass (CABG) Psychiatric history: Reports: no psych history - Social History Smoking Status: Former smoker Alcohol use: Reports: rarely Drug use: Reports: none Physical Exam CONSTITUTIONAL: [well appearing, alert and in no acute distress] EYES: [EOMI, clear conjunctiva, PERRLA] HENT: [Small hematoma to the left frontoparietal junction with small abrasion. Otherwise, moist mucus membranes, normal oropharynx] NECK: [normal inspection, full ROM, trachea midline, no obvious swelling, no midline or paraspinous muscle tenderness] PULMONARY: [normal lung sounds bilaterally, normal chest rise and fall, no respiratory distress or stridor, no wheezes, no rales, no rhonchi CARDIOVASCULAR: [regular rate, regular rhythm, normal heart sounds, no murmurs, distal extremities are warm and well perfused] GASTROINSTESTINAL: [soft, mild epigastric discomfort which patient reports is old, non-rigid, non-distended, no guarding, no rebound, normal bowel sounds] GENITOURINARY/RECTAL: [deferred] NEUROLOGIC: [Alert, oriented x3, normal speech, moves all extremities] EXTREMITIES: [Normal inspection, full ROM, no tenderness, normal capillary refill] MUSCULOSKELETAL: [no gross deformities, atraumatic] SKIN: [No cyanosis, no diaphoresis, normal color, warm, no rash] PSYCHIATRIC: [normal mood and affect] Course Course Narrative: Patient presenting after hitting his head. Does seem to be mechanical. CT head. No neck tenderness. Does have a history of active esophageal cancer, but has no change from baseline from his epigastric discomfort or shortness of breath. - Reevaluation(s) Reevaluation #1: Patient had some EKG changes from August of this year. Decided to get labs, which shows anemia, leukopenia and elevated troponin. In this setting. We did discuss admission hospital service, which the hospitalist was agreeable. We also contacted cardiology, who states that he did not recommend heparin. We will admit for trending. Vital Signs Temperature 98.5 F 11/25/17 09:23 Pulse Rate 113 11/25/17 09:23 Respiratory Rate 18 11/25/17 09:23 Blood Pressure 120/67 11/25/17 09:23 O2 Sat by Pulse Oximetry 97 11/25/17 09:23 Temperature 98.5 F 11/25/17 11:00 Pulse Rate 98 11/25/17 11:09 Respiratory Rate 16 11/25/17 11:09 Blood Pressure 124/62 11/25/17 11:09 O2 Sat by Pulse Oximetry 100 11/25/17 11:09 Oxygen Delivery Oxygen Delivery Room Air Fall - Medical Records Medical records reviewed: Yes I reviewed the patient's medical records. - Lab Data Lab results reviewed: Yes I reviewed the patient's lab results. Result diagrams: 11/25/17 11:21 11/25/17 11:21 Lab Results 11/25/17 11/25/17 11/25/17 Range/Units 11:21 11:21 11:21 WBC 0.3 L* (4.3-11.1) K/mcL RBC 2.52 L (4.19-5.50) M/mcL Hgb 7.4 L (12.9-16.9) g/dL Hct 22.0 L (37.5-50.1) % MCV 87.3 (83.0-100.0) fL MCH 29.4 (28.0-33.3) pg MCHC 33.6 (31.6-35.5) g/dL RDW 15.4 H (11.5-14.5) % Plt Count 145 (140-400) K/mcL MPV 10.8 (9.4-12.4) fL Immature Gran % 9.1 H (0-4) % Seg Neutrophils % 33.3 % Lymphocytes % 18.2 % Monocytes % 39.4 % Eosinophils % 0.0 % Basophils % 0.0 % Neutrophils # 0.1 L (1.6-8.9) K/mcL Lymphocytes # 0.1 L (0.6-4.6) K/mcL Monocytes # 0.1 (0.0-1.3) K/mcL Eosinophils # 0.0 (0.0-0.6) K/mcL Basophils # 0.0 (0.0-0.2) K/mcL Platelet Estimate Normal (Normal) PT 13.9 H (9.4-12.1) Seconds INR 1.2 APTT 27.1 (26.0-36.0) Seconds Sodium 130 L (136-145) mEq/L Potassium 3.0 L (3.5-5.1) mEq/L Chloride 97 L (98-107) mEq/L Carbon Dioxide 24 (23-29) mEq/L BUN 20 (8-23) mg/dL Creatinine 0.79 (0.70-1.30) mg/dL Est GFR ( Amer) > 60 (> 60) Est GFR (Non-Af Amer) > 60 (> 60) BUN/Creatinine Ratio 25 (6-26) Glucose 94 (70-105) mg/dL Calculated Osmolality 272 L (280-300) Calcium 8.1 L (8.6-10.3) mg/dL Phosphorus 1.7 L (2.7-4.5) mg/dL Magnesium 1.0 L (1.6-2.6) mg/dL Troponin I 0.08 H* (< 0.04) ng/mL - Radiology Data Radiology results reviewed: Yes I reviewed the patient's radiology results. - EKG Data EKG attestation: Yes I reviewed and interpreted this EKG. EKG results narrative: Rate 116, irregular rhythm, right axis deviation, right bundle branch block that is similar morphology to previous
[2017-11-25] MEDS ORDERED: Nitroglycerin 0.4 MG TAB.SUBL SL PRN ×2 (10:49→16:10)
[2017-11-25] MEDS ORDERED: Aspirin 81 MG TAB.CHEW PO ONE (10:55)
[2017-11-25 12:16] LABS: Mean Corpuscular Hemoglobin 29.4 pg (28.0-33.3)
[2017-11-25 12:17] LABS: Hemoglobin 7.4 g/dL (12.9-16.9); Immature Granulocytes % 9.1 % (0-4); Lymphocytes # 0.1 K/mcL (0.6-4.6); Lymphocytes % 18.2 %; Mean Corpuscular HGB Conc 33.6 g/dL (31.6-35.5); Mean Corpuscular Volume 87.3 fL (83.0-100.0); Mean Platelet Volume 10.8 fL (9.4-12.4); Monocytes # 0.1 K/mcL (0.0-1.3); Monocytes % 39.4 %; Neutrophils # 0.1 K/mcL (1.6-8.9); Platelet Count 145 K/mcL (140-400); Red Blood Count 2.52 M/mcL (4.19-5.50); Red Cell Distribution Width 15.4 % (11.5-14.5); Segmented Neutrophils % 33.3 %
[2017-11-25 12:21] LABS: INR 1.2; Prothrombin Time 13.9 Seconds (9.4-12.1)
[2017-11-25 12:24] LABS: Activated Partial Thrombo Time 27.1 Seconds (26.0-36.0)
[2017-11-25 12:32] LABS: Platelet Estimate Normal (Normal)
[2017-11-25 12:40] LABS: BUN/Creatinine Ratio 25 (6-26); Blood Urea Nitrogen 20 mg/dL (8-23); Carbon Dioxide 24 mEq/L (23-29); Chloride 97 mEq/L (98-107); Sodium 130 mEq/L (136-145)
[2017-11-25 12:41] LABS: Calcium 8.1 mg/dL (8.6-10.3); Glucose 94 mg/dL (70-105); Osmolality,Calculated 272 (280-300); eGFR For Non-African Americans > 60 (> 60)
[2017-11-25 12:45] LABS: Troponin I 0.08 ng/mL (< 0.04)
[2017-11-25] MEDS ORDERED: 0.9 % Sodium Chloride 1,000 ML IVC ONE (13:00)
[2017-11-25] MEDS ORDERED: Mag Hydrox/Al Hydrox/Simeth 30 ML UDC PO ONE (13:11)
[2017-11-25 13:30] LABS: Phosphorous 1.7 mg/dL (2.7-4.5)
[2017-11-25 15:12] LABS: Bilirubin,Urine Negative (Negative); Blood,Urine Negative (Negative); Clarity,Urine Cloudy (Clear); Color,Urine Yellow (Yellow); Glucose,Urine (UA) Normal (Normal); Ketones,Urine Negative (Negative); Leukocyte Esterase,Urine Negative (Negative); Nitrite,Urine Negative (Negative); Protein,Urine Trace mg/dL (Neg-Trace); Specific Gravity,Urine 1.022 (1.010-1.025); Urobilinogen,Urine Normal (Normal)
[2017-11-25 15:21] LABS: Bacteria,Urine None Seen per hpf (None-Few); Hyaline Casts,Urine None Seen per lpf (None-Few); RBC,Urine 0-3 per hpf (0-3); Squamous Epithelial Cell,Urine Moderate per lpf (None-Few); WBC,Urine 0-3 per hpf (0-3)
[2017-11-25] MEDS ORDERED: Potassium Chloride 40 MEQ, Lidocaine 1% 2 ML in D5% in Water 500 ML IVPB ONE (15:45)
--- NOTE | 2017-11-25 15:45 | Internal Med History&Physical ---
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 Daughter who is at bedside, reports that patients generalized weakness has gradually gotten worse over the last couple days secondary to chemotherapy/ radiation treatments. Patient reports while reaching for objects, he fell over his walker and hit his head on a cabinet falling to the ground on his left side. Daughters came over to assist patient and he was brought into the ER for evaluation. In the ER, head CT negative for acute findings as was chest x-ray. Patient was found to be pancytopenic with a WBC of 0.3, hemoglobin 7.4 and platelet count of 145. Patient was also found to be hyponatremic with a sodium of 130 and potassium of 3.0. Patient will be admitted to medical surgical floor for observation. Past Med Surg Social Fam HX - Past Medical History Medical history: asthma, COPD, coronary artery disease, hyperlipidemia, hypertension, myocardial infarction Additional medical history: esophageal Cancer Psychiatric history: no psych history - Past Surgical History Surgical History: angioplasty/stent, cataract, coronary bypass (CABG) Additional surgical history: 5 stents - Social History Smoking Status: Former smoker Smokeless Tobacco Status: No Alcohol use: rarely Drug use: none - Family History Mother Living Status: Hx Family Cardiac Disorders: No Hx Family Respiratory Disorders: No Hx Family Cancer: No Hx Family GI Disorders: No Hx Family Endocrine Disorder: No Hx Family Neuromuscular Disorders: No Hx Family Neurologic Disorders: No Hx Family HEENT Disorders: No Hx Family Autoimmune Disorders: No Father Living Status: Hx Family Cardiac Disorders: Yes ([place]) Hx Family Respiratory Disorders: No Hx Family Cancer: No Hx Family GI Disorders: No Hx Family Endocrine Disorder: No Hx Family Neuromuscular Disorders: No Hx Family Neurologic Disorders: No Hx Family HEENT Disorders: No Hx Family Autoimmune Disorders: No Internal Medicine - H&P: Meds Aspirin 81 mg PO DAILY 01/21/16 [History] Atorvastatin [Lipitor] 40 mg PO HS 01/21/16 [History] Fenofibrate Nanocrystallized [Tricor] 145 mg PO DAILY 01/21/16 [History] Fexofenadine HCl [Allergy Relief] 180 mg PO DAILY PRN 01/21/16 [History] Folic Acid 1 mg PO DAILY 01/21/16 [History] Nitroglycerin [Nitrostat] 0.4 mg SL Q5M PRN 01/21/16 [History] Omeprazole [PriLOSEC] 20 mg PO DAILY 01/21/16 [History] Clopidogrel [Plavix] 75 mg PO DAILY 10/07/17 [History] Promethazine [Phenergan] 0.5 - 1 tab PO Q6HR PRN #30 tablet 10/08/17 [Rx] Metoprolol [Lopressor] 25 mg PO BID #60 tablet 10/29/17 [Rx] Ondansetron [Zofran ODT] 8 mg SL Q8H PRN 1 Days #60 tab 11/05/17 [Rx] Oxycodone HCl 5 mg PO Q6H PRN 15 Days #60 tablet 11/23/17 [Rx] Dutasteride [Avodart] 0.5 mg PO DAILY 11/25/17 [History] Fluticasone Propionate [Flovent Hfa] 1 inh IH BID 11/25/17 [History] Loperamide [Imodium] 2 mg PO Q4H PRN 11/25/17 [History] Magic Mouthwash [Magic Mouthwash BLM] 10 ml PO BID PRN 11/25/17 [History] Montelukast [Singulair] 10 mg PO DAILY 11/25/17 [History] Sucralfate [Carafate] 1 gm PO QID 11/25/17 [History] Tamsulosin [Flomax] 0.4 mg PO DAILY 11/25/17 [History] Triamcinolone Acet 0.1% OINT [Kenalog] 1 appl TP BID 11/25/17 [History] 3 Allergy/AdvReac Type Severity Reaction Status Date / Time Penicillins [PCN] Allergy Hives Verified 11/25/17 14:03 All Systems PM: A 10-system review of systems was performed and is negative for pertinent findings except as documented above in the HPI. - Constitutional Vitals: Temp Pulse Resp BP Pulse Ox 98.5 F 98 18 102/66 100 11/25/17 11:00 11/25/17 11:09 11/25/17 15:07 11/25/17 15:07 11/25/17 11:09 Exam: Gen.: Nonacute distress, alert and oriented 3 ENT: Mucosal membranes moist Head: Patient with contusion on left parietal skull Respiratory: Lungs are clear to auscultation bilaterally without any wheezing rhonchi or rales Cardiovascular: Normal S1 and S2 regular rate rhythm no murmurs rubs or gallops Abdomen: Soft, nontender and nondistended with positive bowel sounds Extremities: No lower extremity edema Skin: Normal color Neuro: No neurological deficits noted Psychiatry: Normal mood Internal Med - H&P Results - Labs CBC & Chem 7: 11/25/17 11:21 11/25/17 11:21 Labs: Urine 11/25/17 Range/Units 15:00 Urine Color Yellow (Yellow) Urine Clarity Cloudy A (Clear) Urine pH 6.0 (5.0-8.0) pH Units Ur Specific [place] 1.022 (1.010-1.025) Urine Protein Trace (Neg-Trace) mg/dL Urine Glucose (UA) Normal (Normal) mg/dL - Assessment and plan (1) Generalized weakness Current Visit: Yes Status: Acute Assessment and plan: Patient with generalized weakness secondary to chemotherapy/radiation treatment Will give gentle IV fluids and consult physical therapy for home safety. (2) Fall Current Visit: Yes Status: Acute Assessment and plan: Mechanical fall secondary to generalized weakness Will consult physical therapy for home safety Qualifiers: Encounter type: initial encounter Qualified Code(s): W19.XXXA - Unspecified fall, initial encounter (3) Chemotherapy induced neutropenia Current Visit: Yes Status: Acute Assessment and plan: Patient was found to be pancytopenic with a WBC of 0.3, hemoglobin 7.4 and platelet count of [address] patient in neutropenic precautions. Patient afebrile with negative urinalysis and chest x-ray therefore will not start antibiotics at this time Will continue to monitor (4) Epigastric pain Current Visit: Yes Status: Acute Assessment and plan: Epigastric discomfort secondary to radiation for esophageal cancer. 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 He is currently in chemo/radiation tx Hematology/oncology consulted and appreciate any recommendations Qualifiers: Malignant neoplasm of esophagus location: unspecified location Qualified Code(s): C15.9 - Malignant neoplasm of esophagus, unspecified (6) Hyponatremia Current Visit: Yes Status: Chronic Assessment and plan: Sodium 130 on admission Baseline has been 127 for the last 3 months Will continue to monitor (7) Anemia Current Visit: No Status: Acute Assessment and plan: Hemoglobin 7.4 on admission and baseline approximately 9.0 Will continue to monitor Qualifiers: Anemia type: unspecified type Qualified Code(s): D64.9 - Anemia, unspecified (8) Hypertension Current Visit: No Status: Acute Assessment and plan: Controlled; continue beta kade Qualifiers: Hypertension type: essential hypertension Qualified Code(s): I10 - Essential (primary) hypertension (9) CAD (coronary artery disease) of artery bypass graft Current Visit: No Status: Chronic Assessment and plan: Patient with history of CABG and coronary stents 5 Continue aspirin and Plavix in addition to statin and beta kade Qualifiers: [place] vs. transplanted heart: unspecified whether [place] or transplanted heart Qualified Code(s): I25.810 - Atherosclerosis of coronary artery bypass graft(s) without angina pectoris (10) DVT prophylaxis Current Visit: No Status: Acute Assessment and plan: Lovenox subcutaneous - Time Spent With Patient Total time spent is greater than 50% in coordination of care (as documented) at patient's floor/unit and/or counseling patient:
[2017-11-25] MEDS ORDERED: Naloxone 0.4 MG/ML INJ IVP PRN (16:01)
--- NOTE | 2017-11-25 16:01 | Cardiology Consult Note ---
<Neal Hernandez - Last Filed: 11/25/17 16:02> Date of Encounter: 11/25/17 Time of Encounter: 15:49 Assessment and Plan (1) Elevated troponin Current Visit: Yes Status: Acute Mild troponin elevation after fall. Likely demand ischemia with fall, acute on chronic anemia, and CAD. EKG shows RBBB, ST, HR 104, PVC. Patient does not wish to proceed with invasive cardiac testing. H/o recent abnormal stress test and pt declined LHC. He denies chest pain. Continue medical management. Asa, plavix, statin, bb, and imdur. Started on imdur 30 mg at last OV. (2) CAD (coronary artery disease) of artery bypass graft Current Visit: No Status: Chronic H/o CABG and multiple PCI to LAD and Lcx artery. Continue medical management as described above. Qualifiers: [place] vs. transplanted heart: unspecified whether [place] or transplanted heart Qualified Code(s): I25.810 - Atherosclerosis of coronary artery bypass graft(s) without angina pectoris Discussion w patient/family: The assessment and plan as outlined above was discussed with the patient and/or family members who expressed understanding and agreement. All questions were answered. Thank you for involving us in the care of your patient. Please call with any questions. History of Present Illness Consult date: 11/25/17 Requesting physician: Scotty Hutchison Consult reason: elevated troponin Chief complaint: Mechanical fall at home. History of present illness: Mr. Fofana is a 82 year old male with past medical history of CAD s/p CABG and multiple PCI, recent abnormal stress echo at [facility], HTN, HLD, COPD, and esophogeal cancer on chemo and radiation. He presents after mechanical fall at home. States he just received a new rolling walker yesterday. He says he started walking to fast and fell over his walker hitting his head. He denies symptoms of chest pain, SOB, dizziness, or palpitations leading up to the event. After starting chemo and radiation a couple months ago he did develop some burning of his skin where his radiation is given over his chest. He also developed generalized weakness and SOB with activity. Work-up in the ED included an elevated troponin at 0.08. Cardiology consulted to evaluate. He was seen by his dental laboratory worker, Dr. Joanie Foster, 09/2017 for abnormal stress echocardiogram. [facility] was recommended for further evaluation at that time and he declined. He opted for medical therapy and was started on imdur. He states he would not like to proceed with any invasive cardiac evaluation. Prior cardiac testing: Stress echocardiogram [facility] 09/18/17: 2.2 METS exercise achieved with target HR obtained. EKG Showed NSR with RBBB. Resting EF 50-55% with decrease in LVEF with exercise to 40-45% with relative LV dilation. With exercise, hypokenesis of mid/distal anterior wall, mid-distal anterioseptum, and mid-distal anterolateral and inferiolateral rudolph. Holter 01/2017; Baseline NSR. Rare PAC and PVC. CARDIAC CATHETERIZATION - 11/25/2011 * LMCA - 60% distal * LAD - patent stents prox-mid; patent WALTERS. * LCx - 40% prox; patent stents in prox OM1. SVG to OM1 occluded. * RCA - Dominant. 40% mid. * LVEF 60% * LVEDP 13 mmHg Past Med Surg Social Fam HX - Past Medical History Medical history: asthma, COPD, coronary artery disease, hyperlipidemia, hypertension, myocardial infarction Additional medical history: esophageal Cancer Psychiatric history: no psych history - Past Surgical History Surgical History: angioplasty/stent, cataract, coronary bypass (CABG) Additional surgical history: 5 stents - Social History Smoking Status: Former smoker Smokeless Tobacco Status: No Alcohol use: rarely Drug use: none - Family History Mother Living Status: Hx Family Cardiac Disorders: No Hx Family Respiratory Disorders: No Hx Family Cancer: No Hx Family GI Disorders: No Hx Family Endocrine Disorder: No Hx Family Neuromuscular Disorders: No Hx Family Neurologic Disorders: No Hx Family HEENT Disorders: No Hx Family Autoimmune Disorders: No Father Living Status: Hx Family Cardiac Disorders: Yes ([place]) Hx Family Respiratory Disorders: No Hx Family Cancer: No Hx Family GI Disorders: No Hx Family Endocrine Disorder: No Hx Family Neuromuscular Disorders: No Hx Family Neurologic Disorders: No Hx Family HEENT Disorders: No Hx Family Autoimmune Disorders: No Medications and Allergies Aspirin 81 mg PO DAILY 01/21/16 [History] Atorvastatin [Lipitor] 40 mg PO HS 01/21/16 [History] Fenofibrate Nanocrystallized [Tricor] 145 mg PO DAILY 01/21/16 [History] Fexofenadine HCl [Allergy Relief] 180 mg PO DAILY PRN 01/21/16 [History] Folic Acid 1 mg PO DAILY 01/21/16 [History] Nitroglycerin [Nitrostat] 0.4 mg SL Q5M PRN 01/21/16 [History] Omeprazole [PriLOSEC] 20 mg PO DAILY 01/21/16 [History] Clopidogrel [Plavix] 75 mg PO DAILY 10/07/17 [History] Promethazine [Phenergan] 0.5 - 1 tab PO Q6HR PRN #30 tablet 10/08/17 [Rx] Metoprolol [Lopressor] 25 mg PO BID #60 tablet 10/29/17 [Rx] Ondansetron [Zofran ODT] 8 mg SL Q8H PRN 1 Days #60 tab 11/05/17 [Rx] Oxycodone HCl 5 mg PO Q6H PRN 15 Days #60 tablet 11/23/17 [Rx] Dutasteride [Avodart] 0.5 mg PO DAILY 11/25/17 [History] Fluticasone Propionate [Flovent Hfa] 1 inh IH BID 11/25/17 [History] Loperamide [Imodium] 2 mg PO Q4H PRN 11/25/17 [History] Magic Mouthwash [Magic Mouthwash BLM] 10 ml PO BID PRN 11/25/17 [History] Montelukast [Singulair] 10 mg PO DAILY 11/25/17 [History] Sucralfate [Carafate] 1 gm PO QID 11/25/17 [History] Tamsulosin [Flomax] 0.4 mg PO DAILY 11/25/17 [History] Triamcinolone Acet 0.1% OINT [Kenalog] 1 appl TP BID 11/25/17 [History] 3 Allergy/AdvReac Type Severity Reaction Status Date / Time Penicillins [PCN] Allergy Hives Verified 11/25/17 14:03 All Systems Review: The remainder of the systems were reviewed and are negative Physical Examination Vital Signs, Last 4 Hours Resp BP 11/25/17 15:07 18 102/66 General: Conversant, No Apparent Distress HEENT: Atraumatic, Normocephaly, Mucus Membranes Moist, Other (abrasion on his head top left.) Neck: No JVD, Normal carotid pulses Cardiac: Reg Rate and Rhythm, Normal S1 and S2, No Murmur Lungs: Normal Breath Sounds, No Wheeze, Rales, Rhonchi Neuro: Alert and responsive, No focal deficits noted Abdomen: Soft, Non-Tender Skin: No rashes noted on visualized skin Musculoskeletal: No Chest Wall Tenderness Extremities: No Clubbing, No Cyanosis, No Edema, Normal Pulses Results 11/25/17 11:21 11/25/17 11:21 - Imaging and Cardiology Stress Test: report reviewed Echo: report reviewed Cardiac cath: report reviewed - EKG Interpretation EKG results cardiology: personally reviewed Consult Discharge Plan - Plan Referrals: Andrea Rojas Jr, MD [Primary Care Provider] - <De La FuenteCorbin J - Last Filed: 11/25/17 21:12> Date of Encounter: 11/25/17 Time of Encounter: 20:00 - Attending Attestation I have personally performed a face to face evaluation on this patient. I have reviewed and agree with the care plan. History and Exam by me shows: CC: blunt head trauma HPI; Pt walking with rolling walker, tripped, hit his head during the fall. He did not loose consciousness, was aware of the trip, the fall and landing on the floor. He denies chest pain, pressure or shortness of breath before, after or during the event. He does report increasing fatique and shortness of breath over the last several weeks following initiation of chemotx and radiation for esophogeal cancer. He has known CAD, is followed regularly, and has refused invasive stratigies due to multiple comorbidities. PMH: reviewed ROS: reviewed PE; Pt seen and examined, agree with findings as documented. IMP/Plan 1. Elevated troponin, minimal elevation, most consistent with demand ischemia in light of fall, multiple comorbidities. 2. CAD: with known ischemia demonstrated on stress imaging, pt declines invasive strategy, post CABG and multiple PCi's, recommend continue to optimize medical tx. 3. Esophogeal cancer, unknown stage, follows at [facility], receiving chemo and radiation, Will sign off, will continue to follow pt as outpatient if he so desires. Prognosis remains guarded at best. Assessment and Plan Discussion w patient/family: The assessment and plan as outlined above was discussed with the patient and/or family members who expressed understanding and agreement. All questions were answered. Thank you for involving us in the care of your patient. Please call with any questions. History of Present Illness History of present illness: Mr. Fofana is a 82 year old male All Systems Review: The remainder of the systems were reviewed and are negative Physical Examination Vital Signs, Last 4 Hours Temp Pulse Resp BP Pulse Ox 11/25/17 20:49 96 11/25/17 20:32 97.9 F 104 18 145/70 96 11/25/17 20:09 16 92 Results 11/25/17 11:21 11/25/17 11:21 Lab Results 11/25/17 17:16 Troponin I 0.09 H*
[2017-11-25] MEDS ORDERED: Magic Mouthwash 10 ML UD Cup PO PRN (16:10)
[2017-11-25] MEDS ORDERED: Ondansetron ODT 4 MG TAB.RAPDIS SL PRN (16:10)
[2017-11-25] MEDS ORDERED: *HR* OxyCODONE Immed Rel 5 MG TABLET PO PRN (16:10)
[2017-11-25] MEDS ORDERED: Loratadine 10 MG TABLET PO PRN (16:10)
[2017-11-25] MEDS: Sucralfate 1 GM TABLET PO SCH ×2 (16:47→20:34)
[2017-11-25] MEDS: 0.9 % Sodium Chloride 1,000 ML IVC SCH (18:13)
--- NOTE | 2017-11-25 18:48 | Oncology Inp Consult Note ---
<Davina Anthony L - Last Filed: 11/26/17 06:50> Date of Encounter: 11/25/17 Time of Encounter: 18:30 Assessment and Plan (1) Chemotherapy induced neutropenia Status: Acute Assessment and plan: Pancytopenia secondary to chemotherapy ANC 100, patient remains afebrile, no s/s infection Plan: Monitor counts and for s/s infection [place] neutropenic precautions secondary to risk for infection-education provided PRBC as needed for hgb <7 or symptomatic if <8 No role for GSF at this time No role for ATB at this time Continue supportive management (2) Esophageal cancer Status: Acute Assessment and plan: Mr. Fofana completed curative intent concurrent chemoradiation with Carboplatin with paclitaxel. He has one radiation treatment remaining. His last cycle of chemo was 11/19/2017. Plan: He continues to experience expected treatment related toxicity, continue to treat supportively Weakness/Fatigue-consult PT/OT Consult nutrition services IVF for hydration Continue with meal supplement Magic Mouthwash/Carafate for dysphagia/odynophagia Zofran PRN for nausea Imodium PRN for diarrhea Oxycodone PRN for pain Plan for continued close follow up with outpatient oncology for IVF and monitoring Qualifiers: Malignant neoplasm of esophagus location: unspecified location Qualified Code(s): C15.9 - Malignant neoplasm of esophagus, unspecified - Data of Consult Requesting Physician: Kvng Looney MD Primary Care Provider: Andrea Rojas Jr, MD - Consult Narrative Reason for consult: 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 Mr. Fofana completed curative intent concurrent chemoradiation with Carboplatin with paclitaxel. He has one radiation treatment remaining. His last cycle of chemo was 11/19/2017. Mr. Fofana has experienced expected toxicity secondary to his treatment such as neutropenia, fatigue, nausea, diarrhea, symptoms related to dehydration such as worsening hypotension , dysphagia and odynophagia. Dr. Lloyd has been treating supportively. Mr. Fofana presented to ER s/p fall at home. Head CT and CXR unremarkable. He is pancytopenic, ANC 100. He has been afebrile and without sign of infection. He has been admitted with symptoms related to the above toxicity. Past Med Surg Social Fam HX - Past Medical History Medical history: asthma, COPD, coronary artery disease, hyperlipidemia, hypertension, myocardial infarction Additional medical history: esophageal Cancer Psychiatric history: no psych history - Past Surgical History Surgical History: angioplasty/stent, cataract, coronary bypass (CABG) Additional surgical history: 5 stents - Social History Smoking Status: Former smoker Smokeless Tobacco Status: No Alcohol use: rarely Drug use: none - Family History Mother Living Status: Hx Family Cardiac Disorders: No Hx Family Respiratory Disorders: No Hx Family Cancer: No Hx Family GI Disorders: No Hx Family Endocrine Disorder: No Hx Family Neuromuscular Disorders: No Hx Family Neurologic Disorders: No Hx Family HEENT Disorders: No Hx Family Autoimmune Disorders: No Father Living Status: Hx Family Cardiac Disorders: Yes (ME) Hx Family Respiratory Disorders: No Hx Family Cancer: No Hx Family GI Disorders: No Hx Family Endocrine Disorder: No Hx Family Neuromuscular Disorders: No Hx Family Neurologic Disorders: No Hx Family HEENT Disorders: No Hx Family Autoimmune Disorders: No Medications and Allergies Aspirin 81 mg PO DAILY 01/21/16 [History] Atorvastatin [Lipitor] 40 mg PO HS 01/21/16 [History] Fenofibrate Nanocrystallized [Tricor] 145 mg PO DAILY 01/21/16 [History] Fexofenadine HCl [Allergy Relief] 180 mg PO DAILY PRN 01/21/16 [History] Folic Acid 1 mg PO DAILY 01/21/16 [History] Nitroglycerin [Nitrostat] 0.4 mg SL Q5M PRN 01/21/16 [History] Omeprazole [PriLOSEC] 20 mg PO DAILY 01/21/16 [History] Clopidogrel [Plavix] 75 mg PO DAILY 10/07/17 [History] Promethazine [Phenergan] 0.5 - 1 tab PO Q6HR PRN #30 tablet 10/08/17 [Rx] Metoprolol [Lopressor] 25 mg PO BID #60 tablet 10/29/17 [Rx] Ondansetron [Zofran ODT] 8 mg SL Q8H PRN 1 Days #60 tab 11/05/17 [Rx] Oxycodone HCl 5 mg PO Q6H PRN 15 Days #60 tablet 11/23/17 [Rx] Dutasteride [Avodart] 0.5 mg PO DAILY 11/25/17 [History] Fluticasone Propionate [Flovent Hfa] 1 inh IH BID 11/25/17 [History] Loperamide [Imodium] 2 mg PO Q4H PRN 11/25/17 [History] Magic Mouthwash [Magic Mouthwash BLM] 10 ml PO BID PRN 11/25/17 [History] Montelukast [Singulair] 10 mg PO DAILY 11/25/17 [History] Sucralfate [Carafate] 1 gm PO QID 11/25/17 [History] Tamsulosin [Flomax] 0.4 mg PO DAILY 11/25/17 [History] Triamcinolone Acet 0.1% OINT [Kenalog] 1 appl TP BID 11/25/17 [History] 3 Allergy/AdvReac Type Severity Reaction Status Date / Time Penicillins [PCN] Allergy Hives Verified 11/25/17 14:03 Constitutional: Present: anorexia, fatigue, weakness, weight loss. Absent: chills, fever(s) Eyes: Absent: change in vision Nose, mouth and throat: Present: dysphagia, odynophagia. Absent: mouth lesions Cardiovascular: Absent: chest pain, palpitations Respiratory: Present: dyspnea on exertion. Absent: cough Gastrointestinal: Present: diarrhea, dysphagia, nausea, odynophagia. Absent: abdominal pain, hematemesis, hematochezia, melena Additional comments: denies dysuria Musculoskeletal: Present: muscle weakness Integumentary: Absent: wounds Additional comments: contusion to left head from fall Neurological: Present: disequilibrium, weakness. Absent: focal weakness Hematologic/Lymphatic: Present: as per HPI Oncology - Exam - Constitutional Vitals: Temp Pulse Resp BP Pulse Ox 97.7 F 106 16 132/69 97 11/25/17 16:12 11/25/17 16:12 11/25/17 16:12 11/25/17 16:12 11/25/17 16:12 General appearance: cooperative, no acute distress, no febrile - Head Additional comments: contusion to left parietal - ENT ENT exam: Present: mucous membranes moist - Respiratory Respiratory exam: Present: CTAB. Absent: respiratory distress - Cardiovascular Cardiovascular exam: Present: RRR, +S1, +S2 - GI/Abdominal GI/Abdominal exam: Present: normal bowel sounds, soft. Absent: tenderness - Extremities Exam Extremities exam: Absent: calf tenderness - Neurological Exam Neurological exam: Present: alert, oriented X3, no focal deficits, strengths equal and symetr throughout - Psychiatric Psychiatric exam: Present: normal affect, normal mood - Skin Skin exam: Present: dry, intact, normal color, warm Oncology - Results Labs: 3 11/25/17 11/25/17 17:16 15:00 Troponin I 0.09 H* Urine Color Yellow Urine Clarity Cloudy A Urine pH 6.0 Ur Specific [place]ruce 1.022 Urine Protein Trace Urine Glucose (UA) Normal Urine Ketones Negative Urine Blood Negative Urine Nitrite Negative Urine Bilirubin Negative Urine Urobilinogen Normal Ur Leukocyte Esterase Negative Urine Microscopic RBC 0-3 Urine Microscopic WBC 0-3 Ur Squamous Epith Cells Moderate H Urine Bacteria None Seen Hyaline Casts None Seen Ur Culture Indicated? NO Consult Discharge Plan - Plan Referrals: Andrea Rojas Jr, MD [Primary Care Provider] - (Patient is going to Rehab) Inpatient Charges Provider: Dr. Tanvir West <Jayda West - Last Filed: 11/26/17 16:13> Date of Encounter: 11/26/17 - Data of Consult Requesting Physician: José Boyce Primary Care Provider: Andrea Rojas Jr, MD - Consult Narrative History of present illness: PAncx and neupogen if febrile. He has min stomach discomfort, no pain. Last RT dose has been held. I examined this patient and my medical decision-making was reviewed with the Advanced Practice Nurse, Davina Anthony. I agree with the documented findings, disposition and treatment plan as described except to the extent set forth below. Oncology - Exam - Constitutional Vitals: Temp Pulse Resp BP Pulse Ox 98.3 F 96 18 122/68 95 11/26/17 11:19 11/26/17 11:19 11/26/17 11:19 11/26/17 11:19 11/26/17 11:19 Oncology - Results Labs: 3 11/26/17 11/26/17 11/26/17 04:58 04:41 04:16 WBC 0.5 L* D RBC 2.43 L Hgb 7.1 L Hct 20.4 L MCV 84.0 MCH 29.2 MCHC 34.8 RDW 15.6 H Plt Count 131 L MPV 10.8 Immature Gran % 3.8 Seg Neutrophils % 21.2 Lymphocytes % 17.3 Monocytes % 57.7 Eosinophils % 0.0 Basophils % 0.0 Neutrophils # 0.1 L Lymphocytes # 0.1 L Monocytes # 0.3 Eosinophils # 0.0 Basophils # 0.0 Platelet Estimate Normal Sodium 128 L Potassium 3.0 L Chloride 100 Carbon Dioxide 20 L BUN 12 Creatinine 0.52 L Est GFR ( Amer) > 60 Est GFR (Non-Af Amer) > 60 BUN/Creatinine Ratio 23 Glucose 97 Calculated Osmolality 266 L Calcium 7.7 L Troponin I 0.17 H* Urine Color Urine Clarity Urine pH Ur Specific [place] Urine Protein Urine Glucose (UA) Urine Ketones Urine Blood Urine Nitrite Urine Bilirubin Urine Urobilinogen Ur Leukocyte Esterase Urine Microscopic RBC Urine Microscopic WBC Ur Squamous Epith Cells Urine Bacteria Hyaline Casts Ur Culture Indicated? Specimen Rejected Clotted 3 11/25/17 11/25/17 11/25/17 21:45 17:16 15:00 WBC RBC Hgb Hct MCV MCH MCHC RDW Plt Count MPV Immature Gran % Seg Neutrophils % Lymphocytes % Monocytes % Eosinophils % Basophils % Neutrophils # Lymphocytes # Monocytes # Eosinophils # Basophils # Platelet Estimate Sodium Potassium Chloride Carbon Dioxide BUN Creatinine Est GFR ( Amer) Est GFR (Non-Af Amer) BUN/Creatinine Ratio Glucose Calculated Osmolality Calcium Troponin I 0.10 H* 0.09 H* Urine Color Yellow Urine Clarity Cloudy A Urine pH 6.0 Ur Specific [place] 1.022 Urine Protein Trace Urine Glucose (UA) Normal Urine Ketones Negative Urine Blood Negative Urine Nitrite Negative Urine Bilirubin Negative Urine Urobilinogen Normal Ur Leukocyte Esterase Negative Urine Microscopic RBC 0-3 Urine Microscopic WBC 0-3 Ur Squamous Epith Cells Moderate H Urine Bacteria None Seen Hyaline Casts None Seen Ur Culture Indicated? NO Specimen Rejected
[2017-11-25] MEDS: Beclomethasone 80mcg MDI IH SCH (20:06)
[2017-11-26] MEDS: *HR* Enoxaparin 40 MG/0.4 ML SYRINGE SQ SCH (04:49)
[2017-11-26 04:52] LABS: BUN/Creatinine Ratio 23 (6-26); Blood Urea Nitrogen 12 mg/dL (8-23); Calcium 7.7 mg/dL (8.6-10.3); Carbon Dioxide 20 mEq/L (23-29); Chloride 100 mEq/L (98-107); Glucose 97 mg/dL (70-105); Osmolality,Calculated 266 (280-300); Sodium 128 mEq/L (136-145); eGFR For Non-African Americans > 60 (> 60)
[2017-11-26 05:12] LABS: Troponin I 0.17 ng/mL (< 0.04)
[2017-11-26 05:15] LABS: Hematocrit 20.4 % (37.5-50.1); Hemoglobin 7.1 g/dL (12.9-16.9); Immature Granulocytes % 3.8 % (0-4); Lymphocytes # 0.1 K/mcL (0.6-4.6); Lymphocytes % 17.3 %; Mean Corpuscular HGB Conc 34.8 g/dL (31.6-35.5); Mean Corpuscular Hemoglobin 29.2 pg (28.0-33.3); Mean Platelet Volume 10.8 fL (9.4-12.4); Monocytes # 0.3 K/mcL (0.0-1.3); Monocytes % 57.7 %; Neutrophils # 0.1 K/mcL (1.6-8.9); Platelet Count 131 K/mcL (140-400); Red Blood Count 2.43 M/mcL (4.19-5.50); Red Cell Distribution Width 15.6 % (11.5-14.5); Segmented Neutrophils % 21.2 %
[2017-11-26 05:36] LABS: Platelet Estimate Normal (Normal)
[2017-11-26] MEDS: 0.9 % Sodium Chloride 1,000 ML IVC SCH (07:21)
[2017-11-26] MEDS: Beclomethasone 80mcg MDI IH SCH ×2 (07:47→19:59)
[2017-11-26] MEDS: Aspirin 81 MG TAB.CHEW PO SCH (08:48)
[2017-11-26] MEDS: Finasteride 5 MG TABLET PO SCH (08:48)
[2017-11-26] MEDS: Sucralfate 1 GM TABLET PO SCH ×4 (08:48→22:11)
[2017-11-26] MEDS: Fenofibrate 54 MG TABLET PO SCH (08:48)
[2017-11-26] MEDS: Folic Acid 1 MG TABLET PO SCH (08:48)
--- NOTE | 2017-11-26 17:42 | Oncology Inp Progress Note ---
<GoldbergDavina L - Last Filed: 11/26/17 17:45> Date of Encounter: 11/26/17 Time of Encounter: 17:00 (1) Chemotherapy induced neutropenia Current Visit: Yes Status: Acute Assessment and plan: Pancytopenia secondary to chemotherapy ANC 100, patient remains afebrile, no s/s infection Plan: Monitor counts and for s/s infection [place] neutropenic precautions secondary to risk for infection-education provided PRBC as needed for hgb <7 or symptomatic if <8 No role for GCSF at this time No role for ATB at this time Continue supportive management (2) Esophageal cancer Current Visit: Yes Status: Acute Assessment and plan: Mr. Fofana completed curative intent concurrent chemoradiation with Carboplatin with paclitaxel. He has one radiation treatment remaining. His last cycle of chemo was 11/19/2017. Plan: He continues to experience expected treatment related toxicity, continue to treat supportively Weakness/Fatigue-consult PT/OT Consult nutrition services IVF for hydration Continue with meal supplement Magic Mouthwash/Carafate for dysphagia/odynophagia Adding viscous lidocaine Zofran PRN for nausea Imodium PRN for diarrhea Oxycodone PRN for pain Plan for continued close follow up with outpatient oncology for IVF and monitoring Qualifiers: Malignant neoplasm of esophagus location: unspecified location Qualified Code(s): C15.9 - Malignant neoplasm of esophagus, unspecified Oncology: Subj Interval history: Mr. Fofana is resting in bed. Continues to feel fatigued and weak. Little oral intake secondary to odynophagia/dysphagia. He remains afebrile. Encouragement given in regards to continued supportive treatment - Constitutional Vitals: Vital Signs Temp Pulse Resp BP Pulse Ox 11/26/17 16:48 97.8 F 92 18 144/71 97 11/26/17 11:19 98.3 F 96 18 122/68 95 11/26/17 07:47 16 91 11/26/17 07:13 98.0 F 107 18 107/63 95 11/26/17 02:29 98.3 F 112 26 133/75 91 11/25/17 20:49 96 11/25/17 20:32 97.9 F 104 18 145/70 96 11/25/17 20:09 16 92 Intake and Output 11/26/17 11/26/17 11/26/17 07:59 15:59 23:59 Intake Total 1000 / 1000 100 / 100 Output Total 500 / 500 Balance 500 / 500 100 / 100 Intake: IV Fluids 1000 / 1000 0.9 % Sodium Chloride 1,000 ML 1000 / 1000 @ 75 mls/hr IVC .[id number] [facility] Rx #:[id number] Oral 100 / 100 Output: Urine 500 / 500 Other: Meal Breakfast Percent of Meal Consumed 5% General appearance: cooperative, no acute distress, no febrile - Head Head exam: Present: atraumatic - ENT ENT exam: Present: mucous membranes moist - Respiratory Respiratory exam: Present: CTAB. Absent: respiratory distress - Cardiovascular Cardiovascular exam: Present: RRR, +S1, +S2 - GI/Abdominal GI/Abdominal exam: Present: normal bowel sounds, soft. Absent: guarding, rebound, tenderness - Extremities Exam Extremities exam: Absent: calf tenderness - Neurological Exam Neurological exam: Present: alert, oriented X3, no focal deficits, strengths equal and symetr throughout - Psychiatric Psychiatric exam: Present: normal affect, normal mood - Skin Skin exam: Present: dry, intact, normal color, warm Oncology: Obj Data - Labs CBC & Chem 7: 11/26/17 04:58 11/26/17 04:16 - ABG Interpretation ABG results: PT/INR, D-dimer PT 13.9 Seconds (9.4-12.1) H 11/25/17 11:21 Consult Discharge Plan - Plan Referrals: Andrea Rojas Jr, MD [Primary Care Provider] - (Patient is going to Rehab) Inpatient Charges Provider: Dr. Tanvir West <Jayda West - Last Filed: 11/27/17 08:32> Date of Encounter: 11/27/17 Oncology: Subj Interval history: Cytopenia from treatment, dysphagia, mucositis, continue PPI, carafate. Afebrile dose not need I examined this patient and my medical decision-making was reviewed with the Advanced Practice Nurse, Davina Goldberg. I agree with the documented findings, disposition and treatment plan as described except to the extent set forth below. - Constitutional Vitals: Vital Signs Temp Pulse Resp BP Pulse Ox 11/27/17 07:08 97.9 F 98 16 120/60 98 11/27/17 04:51 97.6 F 99 17 126/71 96 11/26/17 23:54 98.8 F 96 17 132/65 98 11/26/17 20:01 18 97 11/26/17 19:40 97.6 F 97 17 128/63 98 11/26/17 16:48 97.8 F 92 18 144/71 97 11/26/17 11:19 98.3 F 96 18 122/68 95 Intake and Output 11/26/17 11/27/17 11/27/17 23:59 07:59 15:59 Intake Total 300 / 300 Balance 300 / 300 Intake: IV Fluids 300 / 300 Potassium Chloride 10 mEq/100mL 300 / 300 10 meq In 100 ml @ 100 mls/hr IVPB Q1H AL[facility]SO Rx#:[id number] Other: Weight 72.3 kg Oncology: Obj Data - Labs CBC & Chem 7: 11/26/17 04:58 11/27/17 07:45 - ABG Interpretation ABG results: PT/INR, D-dimer PT 13.9 Seconds (9.4-12.1) H 11/25/17 11:21 Inpatient Charges Provider: Dr. Tanvir West Follow up - Inpatient: [id number]
[2017-11-26] MEDS ORDERED: Lidocaine Viscous Oral Soln 15 ML SOLUTION MM PRN (17:49)
--- NOTE | 2017-11-26 20:12 | Internal Med Progress Note ---
Hospitalist Progress Note - Encounter Date of Encounter: 11/26/17 Time of Encounter: 11:00 - Subjective Interval History: Physical therapy evaluated patient with recommendations for care home placement due to generalized weakness and history of falls - Exam Vitals: Temp Pulse Resp BP Pulse Ox 97.6 F 97 18 128/63 97 11/26/17 19:40 11/26/17 19:40 11/26/17 20:01 11/26/17 19:40 11/26/17 20:01 Exam: Gen.: Nonacute distress, alert and oriented 3 ENT: Mucosal membranes moist Head: Patient with contusion on left parietal skull Respiratory: Lungs are clear to auscultation bilaterally without any wheezing rhonchi or rales Cardiovascular: Normal S1 and S2 regular rate rhythm no murmurs rubs or gallops Abdomen: Soft, nontender and nondistended with positive bowel sounds Extremities: No lower extremity edema Skin: Normal color Neuro: No neurological deficits noted Psychiatry: Normal mood - Assessment and Plan (1) Generalized weakness Current Visit: Yes Status: Acute Assessment and Plan: Patient with generalized weakness secondary to chemotherapy/radiation treatment Will give gentle IV fluids and consult physical therapy with recommendations for care home facility placement for strengthening and conditioning (2) Fall Current Visit: Yes Status: Acute Assessment and Plan: Mechanical fall secondary to generalized weakness Awaiting care home facility placement as above (3) Chemotherapy induced neutropenia Current Visit: Yes Status: Acute Assessment and Plan: Patient was found to be pancytopenic with a WBC of 0.3, hemoglobin 7.4 and platelet count of [address] patient in neutropenic precautions. Patient afebrile with negative urinalysis and chest x-ray therefore will not start antibiotics at this time Hematology oncology consulted with recommendations for supportive management at this time Will continue to monitor (4) Epigastric pain Current Visit: Yes Status: Acute Assessment and Plan: Epigastric discomfort secondary to radiation for esophageal cancer. Will continue to monitor (5) Esophageal cancer Current Visit: Yes Status: Acute Assessment and Plan: Patient with stage III distal esophageal moderately differentiated adenocarcinoma He is currently in chemo/radiation tx Hematology/oncology consulted and appreciate any recommendations (6) Hyponatremia Current Visit: Yes Status: Chronic Assessment and Plan: Sodium 130 on admission and 128 this morning Baseline has been 127 for the last 3 months Will continue to monitor (7) Anemia Current Visit: No Status: Acute Assessment and Plan: Hemoglobin 7.4 on admission and 7.1 this morning baseline approximately 9.0 We will transfuse when hemoglobin below 7.0 (8) Hypertension Current Visit: No Status: Acute Assessment and Plan: Controlled; continue beta kade (9) CAD (coronary artery disease) of artery bypass graft Current Visit: No Status: Chronic Assessment and Plan: Patient with history of CABG and coronary stents 5 Continue aspirin and Plavix in addition to statin and beta kade (10) DVT prophylaxis Current Visit: No Status: Acute Assessment and Plan: Lovenox subcutaneous - Time Spent with Patient Total time spent is greater than 50% in coordination of care (as documented) at patient's floor/unit and/or counseling patient: Internal Medicine: Result - Labs CBC & Chem 7: 11/26/17 04:58 11/26/17 04:16 Labs: Short CBC 11/26/17 Range/Units 04:58 WBC 0.5 L* D (4.3-11.1) K/mcL Hgb 7.1 L (12.9-16.9) g/dL Hct 20.4 L (37.5-50.1) % Plt Count 131 L (140-400) K/mcL Neutrophils # 0.1 L (1.6-8.9) K/mcL BMP 11/26/17 04:16 Sodium 128 L Potassium 3.0 L Chloride 100 Carbon Dioxide 20 L BUN 12 Creatinine 0.52 L Glucose 97 Calcium 7.7 L Cardiac Enzymes 11/25/17 11/26/17 Range/Units 21:45 04:16 Troponin I 0.10 H* 0.17 H* (< 0.04) ng/mL - ABG Interpretation ABG results: PT/INR, D-dimer PT 13.9 Seconds (9.4-12.1) H 11/25/17 11:21 Consult Discharge Plan - Plan Referrals: Andrea Rojas Jr, MD [Primary Care Provider] - (Patient is going to Rehab) (2) Fall Qualifiers: Encounter type: initial encounter Qualified Code(s): W19.XXXA - Unspecified fall, initial encounter (5) Esophageal cancer Qualifiers: Malignant neoplasm of esophagus location: unspecified location Qualified Code (s): C15.9 - Malignant neoplasm of esophagus, unspecified (7) Anemia Qualifiers: Anemia type: unspecified type Qualified Code(s): D64.9 - Anemia, unspecified (8) Hypertension Qualifiers: Hypertension type: essential hypertension Qualified Code(s): I10 - Essential (primary) hypertension (9) CAD (coronary artery disease) of artery bypass graft Qualifiers: [place] vs. transplanted heart: unspecified whether [place] or transplanted heart Qualified Code(s): I25.810 - Atherosclerosis of coronary artery bypass graft(s) without angina pectoris
[2017-11-27] MEDS: *HR* Enoxaparin 40 MG/0.4 ML SYRINGE SQ SCH (06:07)
--- NOTE | 2017-11-27 07:40 | Internal Med Progress Note ---
Hospitalist Progress Note - Encounter Date of Encounter: 11/27/17 Time of Encounter: 11:00 - Subjective Interval History: Physical therapy evaluated patient with recommendations for [facility] placement due to generalized weakness and history of falls - Exam Vitals: Temp Pulse Resp BP Pulse Ox 97.9 F 98 16 120/60 98 11/27/17 07:08 11/27/17 07:08 11/27/17 07:08 11/27/17 07:08 11/27/17 07:08 Exam: Gen.: Nonacute distress, alert and oriented 3 ENT: Mucosal membranes moist Head: Patient with contusion on left parietal skull Respiratory: Lungs are clear to auscultation bilaterally without any wheezing rhonchi or rales Cardiovascular: Normal S1 and S2 regular rate rhythm no murmurs rubs or gallops Abdomen: Soft, nontender and nondistended with positive bowel sounds Extremities: No lower extremity edema Skin: Normal color Neuro: No neurological deficits noted Psychiatry: Normal mood - Assessment and Plan (1) Generalized weakness Current Visit: Yes Status: Acute Assessment and Plan: Patient with generalized weakness secondary to chemotherapy/radiation treatment 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 Will give gentle IV fluids and consult physical therapy with recommendations for [facility] facility placement for strengthening and conditioning (2) Fall Current Visit: Yes Status: Acute Assessment and Plan: Mechanical fall secondary to generalized weakness above Awaiting [facility] facility placement (3) Esophageal cancer Current Visit: Yes Status: Acute Assessment and Plan: Patient with stage III distal esophageal moderately differentiated adenocarcinoma He is currently in chemo/radiation tx Hematology/oncology consulted and appreciate any recommendations (4) Chemotherapy induced neutropenia Current Visit: Yes Status: Acute Assessment and Plan: Patient was found to be pancytopenic with a WBC of 0.3, hemoglobin 7.4 and platelet count of 145 due to chemotherapy treatments for 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 Will place patient in neutropenic precautions. Patient afebrile with negative urinalysis and chest x-ray therefore will not start antibiotics at this time Hematology oncology consulted with recommendations for supportive management at this time Will continue to monitor (5) Epigastric pain Current Visit: Yes Status: Acute Assessment and Plan: Epigastric discomfort secondary to radiation for esophageal cancer. Nutrition consulted for recommendations. Will continue to monitor (6) Hyponatremia Current Visit: Yes Status: Chronic Assessment and Plan: Sodium 130 on admission and 128 this morning Baseline has been 127 for the last 3 months Will continue to monitor (7) Anemia Current Visit: No Status: Acute Assessment and Plan: Hemoglobin 7.4 on admission and 7.1 this morning baseline approximately 9.0 We will transfuse when hemoglobin below 7.0 (8) Hypertension Current Visit: No Status: Acute Assessment and Plan: Controlled; continue beta kade (9) CAD (coronary artery disease) of artery bypass graft Current Visit: No Status: Chronic Assessment and Plan: Patient with history of CABG and coronary stents 5 Continue aspirin and Plavix in addition to statin and beta kade (10) DVT prophylaxis Current Visit: No Status: Acute Assessment and Plan: Lovenox subcutaneous - Time Spent with Patient Total time spent is greater than 50% in coordination of care (as documented) at patient's floor/unit and/or counseling patient: Internal Medicine: Result - Labs CBC & Chem 7: 11/27/17 07:45 11/27/17 07:45 - ABG Interpretation ABG results: PT/INR, D-dimer PT 13.9 Seconds (9.4-12.1) H 11/25/17 11:21 Consult Discharge Plan - Plan Referrals: Andrea Rojas Jr, MD [Primary Care Provider] - (Patient is going to Rehab) (2) Fall Qualifiers: Encounter type: initial encounter Qualified Code(s): W19.XXXA - Unspecified fall, initial encounter (3) Esophageal cancer Qualifiers: Malignant neoplasm of esophagus location: unspecified location Qualified Code (s): C15.9 - Malignant neoplasm of esophagus, unspecified (7) Anemia Qualifiers: Anemia type: unspecified type Qualified Code(s): D64.9 - Anemia, unspecified (8) Hypertension Qualifiers: Hypertension type: essential hypertension Qualified Code(s): I10 - Essential (primary) hypertension (9) CAD (coronary artery disease) of artery bypass graft Qualifiers: [place] vs. transplanted heart: unspecified whether [place] or transplanted heart
[2017-11-27] MEDS: Fenofibrate 54 MG TABLET PO SCH (08:04)
[2017-11-27] MEDS: Sucralfate 1 GM TABLET PO SCH ×4 (08:05→21:47)
[2017-11-27] MEDS: Aspirin 81 MG TAB.CHEW PO SCH (08:05)
[2017-11-27] MEDS: Folic Acid 1 MG TABLET PO SCH (08:05)
[2017-11-27] MEDS: Finasteride 5 MG TABLET PO SCH (08:05)
[2017-11-27 08:13] LABS: Hematocrit 21.4 % (37.5-50.1); Hemoglobin 7.4 g/dL (12.9-16.9); Lymphocytes # 0.1 K/mcL (0.6-4.6); Mean Corpuscular HGB Conc 34.6 g/dL (31.6-35.5); Mean Corpuscular Hemoglobin 29.4 pg (28.0-33.3); Mean Corpuscular Volume 84.9 fL (83.0-100.0); Mean Platelet Volume 11.1 fL (9.4-12.4); Nucleated Red Blood Cells 2.2 /100 WBC (0); Platelet Count 123 K/mcL (140-400); Red Blood Count 2.52 M/mcL (4.19-5.50); Red Cell Distribution Width 15.7 % (11.5-14.5)
[2017-11-27 08:16] LABS: BUN/Creatinine Ratio 23 (6-26); Blood Urea Nitrogen 10 mg/dL (8-23); Calcium 7.2 mg/dL (8.6-10.3); Carbon Dioxide 20 mEq/L (23-29); Chloride 100 mEq/L (98-107); Glucose 92 mg/dL (70-105); Osmolality,Calculated 263 (280-300); Sodium 127 mEq/L (136-145); eGFR For Non-African Americans > 60 (> 60)
[2017-11-27 09:19] LABS: Monocytes # 0.2 K/mcL (0.0-1.3); Neutrophils # 0.6 K/mcL (1.6-8.9)
[2017-11-27 09:20] LABS: Platelet Estimate Slight Decrease (Normal)
[2017-11-27] MEDS: Magic Mouthwash 10 ML UD Cup PO SCH ×3 (09:25→15:29)
[2017-11-27] MEDS: Beclomethasone 80mcg MDI IH SCH ×2 (10:28→21:47)
[2017-11-27] MEDS ORDERED: Magic Mouthwash 10 ML UD Cup PO SCH (11:30)
--- NOTE | 2017-11-27 17:17 | Oncology Inp Progress Note ---
<Davina Anthony L - Last Filed: 11/27/17 18:03> Date of Encounter: 11/27/17 Time of Encounter: 16:30 (1) Chemotherapy induced neutropenia Current Visit: Yes Status: Acute Assessment and plan: Pancytopenia secondary to chemotherapy ANC improved to 600 today, patient remains afebrile, no s/s infection Plan: Monitor counts and for s/s infection PRBC as needed for hgb <7 or symptomatic if <8---hgb 7.4 today, ordered 1 unit PRBC for symptomatic relief No role for GCSF at this time No role for ATB at this time Continue supportive management (2) Esophageal cancer Current Visit: Yes Status: Acute Assessment and plan: Mr. Fofana completed curative intent concurrent chemoradiation with Carboplatin with paclitaxel. He has one radiation treatment remaining. His last cycle of chemo was 11/19/2017. Plan: He continues to experience expected treatment related toxicity, continue to treat supportively Weakness/Fatigue-consult PT/OT Consult nutrition services IVF for hydration Continue with meal supplement- encouraged continued use Magic Mouthwash/Carafate for dysphagia/odynophagia Zofran PRN for nausea Imodium PRN for diarrhea Oxycodone PRN for pain He is planned for discharge on Thursday to SNF for short term rehab. I will arrange for him to receive his final radiation treatment either Thursday prior to d/c or on Thursday. He has a f/u appointment on Thursday with Dr. Lloyd, we will need to continue to monitor his intake closely along with need for hydration. Encouragement given for continued supportive treatment and that with tincture of time symptoms will improve. Qualifiers: Malignant neoplasm of esophagus location: unspecified location Qualified Code(s): C15.9 - Malignant neoplasm of esophagus, unspecified Oncology: Subj Interval history: Mr. Fofana is resting comfortably. His family are at bedside. He reports minor improvement in his fatigue today. Drinking ensure with meals. Diarrhea has slowed down today. Continues to experience odynophagia/dysphagia. NO fever/ chills. - Constitutional Vitals: Vital Signs Temp Pulse Resp BP Pulse Ox 11/27/17 16:04 97.6 F 99 17 120/70 96 11/27/17 11:38 98.8 F 96 18 130/74 98 11/27/17 10:30 16 97 11/27/17 07:08 97.9 F 98 16 120/60 98 11/27/17 04:51 97.6 F 99 17 126/71 96 11/26/17 23:54 98.8 F 96 17 132/65 98 11/26/17 20:01 18 97 11/26/17 19:40 97.6 F 97 17 128/63 98 General appearance: cooperative, no acute distress, no febrile - ENT ENT exam: Present: mucous membranes moist - Respiratory Respiratory exam: Present: CTAB. Absent: respiratory distress - Cardiovascular Cardiovascular exam: Present: RRR, +S1, +S2 - GI/Abdominal GI/Abdominal exam: Present: normal bowel sounds, soft. Absent: guarding, rebound, tenderness - Extremities Exam Extremities exam: Absent: calf tenderness - Neurological Exam Neurological exam: Present: alert, oriented X3, no focal deficits, strengths equal and symetr throughout - Psychiatric Psychiatric exam: Present: normal affect, normal mood - Skin Skin exam: Present: dry, intact, pallor, warm Oncology: Obj Data - Labs CBC & Chem 7: 11/27/17 07:45 11/27/17 07:45 Labs: Laboratory Results - last 24 hr 11/27/17 11/27/17 07:45 07:45 WBC 0.9 L* D RBC 2.52 L Hgb 7.4 L Hct 21.4 L MCV 84.9 MCH 29.4 MCHC 34.6 RDW 15.7 H Plt Count 123 L MPV 11.1 Seg Neutrophils % 56.0 Band Neutrophils % 6.0 H Lymphocytes % 10.0 Monocytes % 26.0 Eosinophils % 2.0 Neutrophils # 0.6 L Lymphocytes # 0.1 L Monocytes # 0.2 Eosinophils # 0.0 Nucleated RBCs/100 WBC 2.2 H Platelet Estimate Slight Decrease L Sodium 127 L Potassium 3.0 L Chloride 100 Carbon Dioxide 20 L BUN 10 Creatinine 0.43 L Est GFR ( Amer) > 60 Est GFR (Non-Af Amer) > 60 BUN/Creatinine Ratio 23 Glucose 92 Calculated Osmolality 263 L Calcium 7.2 L - ABG Interpretation ABG results: PT/INR, D-dimer PT 13.9 Seconds (9.4-12.1) H 11/25/17 11:21 Consult Discharge Plan - Plan Referrals: Andrea Rojas Jr, MD [Primary Care Provider] - (Patient is going to Rehab) Inpatient Charges Provider: Dr. Donte Diez <[email or web address] S - Last Filed: 11/30/17 11:37> Date of Encounter: 11/27/17 - Constitutional Vitals: Vital Signs Temp Pulse Resp BP Pulse Ox 11/27/17 16:04 97.6 F 99 17 120/70 96 11/27/17 11:38 98.8 F 96 18 130/74 98 11/27/17 10:30 16 97 11/27/17 07:08 97.9 F 98 16 120/60 98 11/27/17 04:51 97.6 F 99 17 126/71 96 11/26/17 23:54 98.8 F 96 17 132/65 98 11/26/17 20:01 18 97 11/26/17 19:40 97.6 F 97 17 128/63 98 Oncology: Obj Data - Labs CBC & Chem 7: 11/30/17 08:45 11/30/17 08:45 Labs: Laboratory Results - last 24 hr 11/27/17 11/27/17 07:45 07:45 WBC 0.9 L* D RBC 2.52 L Hgb 7.4 L Hct 21.4 L MCV 84.9 MCH 29.4 MCHC 34.6 RDW 15.7 H Plt Count 123 L MPV 11.1 Seg Neutrophils % 56.0 Band Neutrophils % 6.0 H Lymphocytes % 10.0 Monocytes % 26.0 Eosinophils % 2.0 Neutrophils # 0.6 L Lymphocytes # 0.1 L Monocytes # 0.2 Eosinophils # 0.0 Nucleated RBCs/100 WBC 2.2 H Platelet Estimate Slight Decrease L Sodium 127 L Potassium 3.0 L Chloride 100 Carbon Dioxide 20 L BUN 10 Creatinine 0.43 L Est GFR ( Amer) > 60 Est GFR (Non-Af Amer) > 60 BUN/Creatinine Ratio 23 Glucose 92 Calculated Osmolality 263 L Calcium 7.2 L - ABG Interpretation ABG results: PT/INR, D-dimer PT 13.9 Seconds (9.4-12.1) H 11/25/17 11:21 Inpatient Charges Provider: Dr. Donte Diez Follow up - Inpatient: [id number] - Attending Attestation I examined this patient and my medical decision-making was reviewed with the Advanced Practice Nurse. I agree with the documented findings, disposition and treatment plan as described except to the extent set forth below. 1. Esophageal cancer post concurrent chemoradiation with weekly carboplatin and Taxol. He missed one dose on 11/19/2017. 2. Admitted with a toxicity due to treatment from above 3. Neutropenia. Neutrophils of improved from 100-600. We will watch him without growth factor support 4. Anemia hemoglobin 7.4. Given that he had thoracic radiation his bone marrow reserve is going to be low. Proceed with 1 unit of packed RBC transfusion Overall he is recovering well. Able to drink fluids.
[2017-11-27] MEDS ORDERED: 0.9 % Sodium Chloride 250 ML ONE (23:26)
[2017-11-28] MEDS: *HR* Enoxaparin 40 MG/0.4 ML SYRINGE SQ SCH (06:23)
[2017-11-28] MEDS: Aspirin 81 MG TAB.CHEW PO SCH (07:35)
[2017-11-28] MEDS: Finasteride 5 MG TABLET PO SCH (07:35)
[2017-11-28] MEDS: Sucralfate 1 GM TABLET PO SCH ×4 (07:35→20:54)
[2017-11-28] MEDS: Fenofibrate 54 MG TABLET PO SCH (07:36)
[2017-11-28] MEDS: Folic Acid 1 MG TABLET PO SCH (07:36)
[2017-11-28] MEDS: Magic Mouthwash 10 ML UD Cup PO SCH ×3 (07:37→15:51)
--- NOTE | 2017-11-28 08:03 | Internal Med Progress Note ---
Hospitalist Progress Note - Encounter Date of Encounter: 11/28/17 Time of Encounter: 11:00 - Subjective Interval History: Physical therapy evaluated patient with recommendations for [facility] placement due to generalized weakness and history of falls Patient given 1 unit of packed red blood cells on 11/27/17 due to anemia Patient with chemotherapy induced neutropenia that is improving - Exam Vitals: Temp Pulse Resp BP Pulse Ox 97.3 F L 91 18 139/66 97 11/28/17 07:02 11/28/17 07:02 11/28/17 07:02 11/28/17 07:02 11/28/17 07:02 Exam: Gen.: Nonacute distress, alert and oriented 3 ENT: Mucosal membranes moist Head: Patient with contusion on left parietal skull Respiratory: Lungs are clear to auscultation bilaterally without any wheezing rhonchi or rales Cardiovascular: Normal S1 and S2 regular rate rhythm no murmurs rubs or gallops Abdomen: Soft, nontender and nondistended with positive bowel sounds Extremities: No lower extremity edema Skin: Normal color Neuro: No neurological deficits noted Psychiatry: Normal mood - Assessment and Plan (1) Generalized weakness Current Visit: Yes Status: Acute Assessment and Plan: Patient with generalized weakness secondary to chemotherapy/radiation treatment 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 Will place patient in neutropenic precautions. Patient afebrile with negative urinalysis and chest x-ray therefore will not start antibiotics at this time Hematology oncology consulted with recommendations for supportive management at this time without growth factor support Will continue to monitor (4) Esophageal cancer Current Visit: Yes Status: Acute Assessment and Plan: Patient with stage III distal esophageal moderately differentiated adenocarcinoma He is currently in chemo/radiation tx Hematology/oncology consulted and appreciate any recommendations (5) Epigastric pain Current Visit: Yes Status: Acute Assessment and Plan: Epigastric discomfort secondary to radiation for esophageal cancer. Nutrition consulted for recommendations. Will continue to monitor (6) Anemia Current Visit: No Status: Acute Assessment and Plan: Hemoglobin 7.4 on 11/27/17 therefore recommendations for 1 unit of packed red blood cells by hematology oncology due to the fact that patient had thoracic radiation of his bone marrow now most likely will low reserve. Will continue to monitor (7) Hyponatremia Current Visit: Yes Status: Chronic Assessment and Plan: Sodium 128 on 11/27/17 Baseline has been 127 for the last 3 months Will continue to monitor (8) Hypertension Current Visit: No Status: Acute Assessment and Plan: Controlled; continue beta kade (9) CAD (coronary artery disease) of artery bypass graft Current Visit: No Status: Chronic Assessment and Plan: Patient with history of CABG and coronary stents 5 Continue aspirin and Plavix in addition to statin and beta kade DVT Prophylaxis: Subcutaneous Lovenox - Time Spent with Patient Total time spent is greater than 50% in coordination of care (as documented) at patient's floor/unit and/or counseling patient: Internal Medicine: Result - Labs CBC & Chem 7: 11/28/17 09:01 11/28/17 08:14 Labs: Short CBC 11/27/17 Range/Units 07:45 WBC 0.9 L* D (4.3-11.1) K/mcL Hgb 7.4 L (12.9-16.9) g/dL Hct 21.4 L (37.5-50.1) % Plt Count 123 L (140-400) K/mcL Neutrophils # 0.6 L (1.6-8.9) K/mcL BMP 11/27/17 07:45 Sodium 127 L Potassium 3.0 L Chloride 100 Carbon Dioxide 20 L BUN 10 Creatinine 0.43 L Glucose 92 Calcium 7.2 L - ABG Interpretation ABG results: PT/INR, D-dimer PT 13.9 Seconds (9.4-12.1) H 11/25/17 11:21 Consult Discharge Plan - Plan Referrals: Andrea Rojas Jr, MD [Primary Care Provider] - (Patient is going to Rehab) (2) Fall Qualifiers: Encounter type: initial encounter Qualified Code(s): W19.XXXA - Unspecified fall, initial encounter (4) Esophageal cancer Qualifiers: Malignant neoplasm of esophagus location: unspecified location Qualified Code (s): C15.9 - Malignant neoplasm of esophagus, unspecified (6) Anemia Qualifiers: Anemia type: unspecified type Qualified Code(s): D64.9 - Anemia, unspecified (8) Hypertension Qualifiers: Hypertension type: essential hypertension Qualified Code(s): I10 - Essential (primary) hypertension (9) CAD (coronary artery disease) of artery bypass graft Qualifiers: [place] vs. transplanted heart: unspecified whether [place] or transplanted heart
[2017-11-28 09:16] LABS: Nucleated Red Blood Cells 2.4 /100 WBC (0)
[2017-11-28 09:17] LABS: Hematocrit 27.9 % (37.5-50.1); Mean Corpuscular HGB Conc 34.4 g/dL (31.6-35.5); Mean Corpuscular Hemoglobin 29.7 pg (28.0-33.3); Mean Corpuscular Volume 86.4 fL (83.0-100.0); Mean Platelet Volume 11.2 fL (9.4-12.4); Platelet Count 123 K/mcL (140-400); Red Blood Count 3.23 M/mcL (4.19-5.50); Red Cell Distribution Width 14.8 % (11.5-14.5)
[2017-11-28 09:31] LABS: Hemoglobin 9.6 g/dL (12.9-16.9)
[2017-11-28 09:39] LABS: BUN/Creatinine Ratio 16 (6-26); Blood Urea Nitrogen 10 mg/dL (8-23); Calcium 7.6 mg/dL (8.6-10.3); Carbon Dioxide 18 mEq/L (23-29); Chloride 101 mEq/L (98-107); Glucose 114 mg/dL (70-105); Osmolality,Calculated 266 (280-300); Potassium 3.7 mEq/L (3.5-5.1); Sodium 128 mEq/L (136-145); eGFR For Non-African Americans > 60 (> 60)
[2017-11-28 09:52] LABS: Lymphocytes # 0.2 K/mcL (0.6-4.6); Monocytes # 0.1 K/mcL (0.0-1.3); Neutrophils # 1.4 K/mcL (1.6-8.9)
[2017-11-28 09:53] LABS: Platelet Estimate Slight Decrease (Normal)
[2017-11-28] MEDS: Beclomethasone 80mcg MDI IH SCH ×2 (10:26→23:17)
[2017-11-29] MEDS: *HR* Enoxaparin 40 MG/0.4 ML SYRINGE SQ SCH (06:24)
[2017-11-29] MEDS: Beclomethasone 80mcg MDI IH SCH ×2 (07:53→20:55)
[2017-11-29] MEDS: Aspirin 81 MG TAB.CHEW PO SCH (07:56)
[2017-11-29] MEDS: Finasteride 5 MG TABLET PO SCH (07:57)
[2017-11-29] MEDS: Folic Acid 1 MG TABLET PO SCH (07:57)
[2017-11-29] MEDS: Magic Mouthwash 10 ML UD Cup PO SCH ×3 (07:59→15:35)
[2017-11-29] MEDS: Sucralfate 1 GM TABLET PO SCH ×4 (08:00→21:27)
[2017-11-29] MEDS: Fenofibrate 54 MG TABLET PO SCH (08:06)
--- NOTE | 2017-11-29 08:06 | Internal Med Progress Note ---
Hospitalist Progress Note - Encounter Date of Encounter: 11/29/17 Time of Encounter: 11:00 - Subjective Interval History: Physical therapy evaluated patient with recommendations for residential placement due to generalized weakness and history of falls Patient is awaiting precertification for placement at residential facility - Exam Vitals: Temp Pulse Resp BP Pulse Ox 97.6 F 97 16 155/74 95 11/29/17 06:36 11/29/17 06:36 11/29/17 07:53 11/29/17 06:36 11/29/17 07:53 Exam: Gen.: Nonacute distress, alert and oriented 3 ENT: Mucosal membranes moist Head: Patient with contusion on left parietal skull Respiratory: Lungs are clear to auscultation bilaterally without any wheezing rhonchi or rales Cardiovascular: Normal S1 and S2 regular rate rhythm no murmurs rubs or gallops Abdomen: Soft, nontender and nondistended with positive bowel sounds Extremities: No lower extremity edema Skin: Normal color Neuro: No neurological deficits noted Psychiatry: Normal mood - Assessment and Plan (1) Generalized weakness Current Visit: Yes Status: Acute Assessment and Plan: Patient with generalized weakness secondary to chemotherapy/radiation treatment 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 Neutrophils are improving; continue neutropenic precautions. Patient afebrile with negative urinalysis and chest x-ray therefore will not start antibiotics at this time Hematology oncology consulted with recommendations for supportive management at this time without growth factor support Will continue to monitor (4) Esophageal cancer Current Visit: Yes Status: Acute Assessment and Plan: Patient with stage III distal esophageal moderately differentiated adenocarcinoma He is currently in chemo/radiation tx Hematology/oncology consulted and appreciate any recommendations (5) Epigastric pain Current Visit: Yes Status: Acute Assessment and Plan: Epigastric discomfort secondary to radiation for esophageal cancer. Nutrition consulted for recommendations. Will continue to monitor (6) Anemia Current Visit: No Status: Acute Assessment and Plan: Hemoglobin 9.6 on 11/28/17 status post 1 unit of packed red blood cells Will continue to monitor (7) Hyponatremia Current Visit: Yes Status: Chronic Assessment and Plan: Sodium 128 on 11/27/17 Baseline has been 127 for the last 3 months Will continue to monitor (8) Hypertension Current Visit: No Status: Acute Assessment and Plan: Controlled; continue beta kade (9) CAD (coronary artery disease) of artery bypass graft Current Visit: No Status: Chronic Assessment and Plan: Patient with history of CABG and coronary stents 5 Continue aspirin and Plavix in addition to statin and beta kade DVT Prophylaxis: Subcutaneous Lovenox - Time Spent with Patient Total time spent is greater than 50% in coordination of care (as documented) at patient's floor/unit and/or counseling patient: Internal Medicine: Result - Labs CBC & Chem 7: 11/29/17 08:13 11/29/17 08:13 Labs: Short CBC 11/28/17 Range/Units 09:01 WBC 1.7 L D (4.3-11.1) K/mcL Hgb 9.6 L D (12.9-16.9) g/dL Hct 27.9 L (37.5-50.1) % Plt Count 123 L (140-400) K/mcL Neutrophils # 1.4 L (1.6-8.9) K/mcL BMP 11/28/17 08:14 Sodium 128 L Potassium 3.7 Chloride 101 Carbon Dioxide 18 L BUN 10 Creatinine 0.64 L Glucose 114 H Calcium 7.6 L - ABG Interpretation ABG results: PT/INR, D-dimer PT 13.9 Seconds (9.4-12.1) H 11/25/17 11:21 Consult Discharge Plan - Plan Referrals: Andrea Rojas Jr, MD [Primary Care Provider] - (Patient is going to Rehab) (2) Fall Qualifiers: Encounter type: initial encounter Qualified Code(s): W19.XXXA - Unspecified fall, initial encounter (4) Esophageal cancer Qualifiers: Malignant neoplasm of esophagus location: unspecified location Qualified Code (s): C15.9 - Malignant neoplasm of esophagus, unspecified (6) Anemia Qualifiers: Anemia type: unspecified type Qualified Code(s): D64.9 - Anemia, unspecified (8) Hypertension Qualifiers: Hypertension type: essential hypertension Qualified Code(s): I10 - Essential (primary) hypertension (9) CAD (coronary artery disease) of artery bypass graft Qualifiers: [place] vs. transplanted heart: unspecified whether [place] or transplanted heart
[2017-11-29 08:31] LABS: Hematocrit 27.8 % (37.5-50.1); Hemoglobin 9.2 g/dL (12.9-16.9); Mean Corpuscular HGB Conc 33.1 g/dL (31.6-35.5); Mean Corpuscular Hemoglobin 29.9 pg (28.0-33.3); Mean Corpuscular Volume 90.3 fL (83.0-100.0); Mean Platelet Volume 9.8 fL (9.4-12.4); Platelet Count 101 K/mcL (140-400); Red Blood Count 3.08 M/mcL (4.19-5.50); Red Cell Distribution Width 15.1 % (11.5-14.5)
[2017-11-29 08:44] LABS: BUN/Creatinine Ratio 20 (6-26); Blood Urea Nitrogen 10 mg/dL (8-23); Calcium 7.3 mg/dL (8.6-10.3); Carbon Dioxide 23 mEq/L (23-29); Chloride 99 mEq/L (98-107); Glucose 108 mg/dL (70-105); Osmolality,Calculated 266 (280-300); Potassium 2.9 mEq/L (3.5-5.1); Sodium 128 mEq/L (136-145); eGFR For Non-African Americans > 60 (> 60)
[2017-11-29 09:18] LABS: Lymphocytes # 0.4 K/mcL (0.6-4.6); Neutrophils # 1.8 K/mcL (1.6-8.9); Platelet Estimate Decreased (Normal)
--- NOTE | 2017-11-29 17:04 | Electrocardiograph Report ---
[place] [id number] Test Date: 2017-11-25 Pat Name: Jefry Fofana Department: EXAM19 Room: 2A14 Gender: [employer] Sewer: : 1935 Requested By: Scotty Hutchison Order Number: [id number] Reading MD: Dipak Grande Measurements Intervals [place] Rate: 116 P: [place]: QRS: -98 QRSD: 149 T: 57 QT: 382 QTc: 531 Interpretive Statements Sinus tachycardia RBBB and LAFB Electronically Signed On 11-29-2017 17:03:03 EDT by Dipak Grande
--- NOTE | 2017-11-29 17:05 | Electrocardiograph Report ---
[place] [id number] Test Date: 2017-11-25 Pat Name: Jefry Fofana Department: EXAM19 Room: 2A14 Gender: M [employer] Operator: : 1935 Requested By: Se Prajapati Order Number: [id number] Reading MD: Dipak Grande Measurements Intervals [place] Rate: 106 P: 50 NC: 150 QRS: -99 QRSD: 152 T: 56 QT: 382 QTc: 508 Interpretive Statements Sinus tachycardia Atrial premature complexes RBBB and LAFB Electronically Signed On 11-29-2017 17:03:54 EDT by Dipak Grande
[2017-11-29] MEDS: Potassium Chloride Elixir 20 MEQ/15 ML UDC PO SCH (23:13)
[2017-11-30] MEDS: *HR* Enoxaparin 40 MG/0.4 ML SYRINGE SQ SCH (05:21)
[2017-11-30 08:56] LABS: Hematocrit 29.3 % (37.5-50.1); Hemoglobin 9.9 g/dL (12.9-16.9); Mean Corpuscular HGB Conc 33.8 g/dL (31.6-35.5); Mean Corpuscular Hemoglobin 29.3 pg (28.0-33.3); Mean Platelet Volume 10.4 fL (9.4-12.4); Platelet Count 107 K/mcL (140-400); Red Blood Count 3.38 M/mcL (4.19-5.50); Red Cell Distribution Width 15.5 % (11.5-14.5)
[2017-11-30 08:57] LABS: Mean Corpuscular Volume 86.7 fL (83.0-100.0)
[2017-11-30] MEDS: Finasteride 5 MG TABLET PO SCH (09:00)
[2017-11-30] MEDS: Folic Acid 1 MG TABLET PO SCH (09:00)
[2017-11-30] MEDS: Sucralfate 1 GM TABLET PO SCH ×4 (09:00→20:40)
[2017-11-30] MEDS: Fenofibrate 54 MG TABLET PO SCH (09:00)
[2017-11-30] MEDS: Aspirin 81 MG TAB.CHEW PO SCH (09:00)
[2017-11-30] MEDS: Magic Mouthwash 10 ML UD Cup PO SCH ×3 (09:01→17:02)
[2017-11-30] MEDS: Potassium Chloride Elixir 20 MEQ/15 ML UDC PO SCH (09:02)
[2017-11-30 09:13] LABS: Lymphocytes # 0.3 K/mcL (0.6-4.6); Monocytes # 0.5 K/mcL (0.0-1.3); Neutrophils # 1.9 K/mcL (1.6-8.9)
[2017-11-30 09:14] LABS: Platelet Estimate Decreased (Normal); Reactive Lymphocytes Present (Not Present)
[2017-11-30 09:18] LABS: BUN/Creatinine Ratio 18 (6-26); Blood Urea Nitrogen 8 mg/dL (8-23); Calcium 7.4 mg/dL (8.6-10.3); Carbon Dioxide 24 mEq/L (23-29); Chloride 98 mEq/L (98-107); Glucose 135 mg/dL (70-105); Osmolality,Calculated 264 (280-300); Sodium 127 mEq/L (136-145); eGFR For Non-African Americans > 60 (> 60)
[2017-11-30] MEDS: Beclomethasone 80mcg MDI IH SCH ×2 (10:22→20:06)
--- NOTE | 2017-11-30 13:41 | Oncology Inp Progress Note ---
<Davina Anthony - Last Filed: 11/30/17 18:56> Date of Encounter: 11/30/17 Time of Encounter: 11:00 (1) Chemotherapy induced neutropenia Status: Acute Assessment and plan: Pancytopenia secondary to chemotherapy ANC has normalized, patient remains afebrile, no s/s infection Plan: Monitor CBC and for s/s infection PRBC as needed for hgb <7 or symptomatic if <8, he is at continued risk for anemia secondary to chest radiation He has responded well to PRBC No role for GCSF at this time No role for ATB at this time Continue supportive management (2) Esophageal cancer Status: Acute Assessment and plan: Mr. Fofana completed curative intent concurrent chemoradiation with Carboplatin with paclitaxel. He has one radiation treatment remaining. His last cycle of chemo was 11/19/2017. Plan: He continues to experience expected treatment related toxicity, continue to treat supportively Weakness/Fatigue-consult PT/OT---He is planned to discharge to [facility] Consult nutrition services Continue with meal supplement- encouraged continued use Magic Mouthwash/Carafate for dysphagia/odynophagia Zofran PRN for nausea Imodium PRN for diarrhea Oxycodone PRN for pain We discussed plans to finish his last radiation treatment and transport to radiation today to do so. Mr. Fofana is declining his radiation treatment and states he feels as though he cannot tolerate another radiation treatment. We discussed that side effects from his one remaining treatment may be minimal as this would be without concurrent chemotherapy, however, he continues to decline and this is reasonable. Plan to discharge to [facility] bed facility per primary team and we will arrange follow up otherwise as outpatient. Qualifiers: Malignant neoplasm of esophagus location: unspecified location Qualified Code(s): C15.9 - Malignant neoplasm of esophagus, unspecified Oncology: Subj Interval history: Mr. Fofana is sitting up in his chair today. He looks well although he states he continues to feel quite fatigued. He currently denies pain. His esophagitis symptoms are slowly improving, he is able to tolerate liquids well now but continues to have odynophagia with swallowing food. He denies fever/chill. He is drinking baot 1-2 boost/day, I encouraged one per meal if he is tolerating liquids. - Constitutional Vitals: Vital Signs Temp Pulse Resp BP Pulse Ox 11/30/17 11:37 97.5 F L 70 20 142/69 95 11/30/17 10:22 20 95 11/30/17 07:44 97.6 F 94 18 130/71 96 11/30/17 04:36 97.2 F L 92 15 128/56 96 11/30/17 00:35 98.1 F 93 16 127/75 94 11/29/17 22:13 97.6 F 92 17 139/76 95 11/29/17 20:55 17 96 11/29/17 17:00 98.1 F 92 17 150/75 98 Intake and Output 11/29/17 11/30/17 11/30/17 23:59 07:59 15:59 Intake Total 120 / 120 0 / 0 120 / 120 Output Total 475 / 475 500 / 500 300 / 300 Balance -355 / -355 -500 / -500 -180 / -180 Intake: Oral 120 / 120 0 / 0 120 / 120 Output: Urine 475 / 475 500 / 500 300 / 300 Other: Meal Dinner Breakfast Percent of Meal Consumed 10% 30% Weight 72.2 kg Patient Weight 11/30/17 23:59 Weight 72.2 kg General appearance: cooperative, no acute distress, no febrile - Head Head exam: Present: atraumatic - ENT ENT exam: Present: mucous membranes moist Additional comments: no oral lesions - Respiratory Respiratory exam: Present: CTAB. Absent: respiratory distress - Cardiovascular Cardiovascular exam: Present: RRR, +S1, +S2 - GI/Abdominal GI/Abdominal exam: Present: normal bowel sounds, soft. Absent: guarding, rebound, tenderness - Extremities Exam Extremities exam: Absent: calf tenderness - Neurological Exam Neurological exam: Present: alert, oriented X3, no focal deficits, strengths equal and symetr throughout - Psychiatric Psychiatric exam: Present: normal affect, normal mood - Skin Skin exam: Present: dry, intact, normal color, warm Oncology: Obj Data - Labs CBC & Chem 7: 11/30/17 08:45 11/30/17 08:45 - ABG Interpretation ABG results: PT/INR, D-dimer PT 13.9 Seconds (9.4-12.1) H 11/25/17 11:21 Consult Discharge Plan - Plan Referrals: Andrea Rojas Jr, MD [Primary Care Provider] - (Patient is going to Rehab) <Yonny Diez - Last Filed: 12/01/17 19:08> Date of Encounter: 11/30/17 - Constitutional Vitals: Vital Signs Temp Pulse Resp BP Pulse Ox 12/01/17 11:11 97.6 F 88 18 122/75 96 12/01/17 07:15 98 F 101 20 134/71 95 12/01/17 03:49 97.8 F 96 20 142/69 94 12/01/17 00:28 97.9 F 96 18 135/73 97 11/30/17 20:08 18 96 11/30/17 19:13 97.6 F 95 18 124/71 96 Intake and Output 12/01/17 12/01/17 12/01/17 07:59 15:59 23:59 Intake Total 60 / 60 Output Total 750 / 750 900 / 900 Balance -690 / -690 -900 / -900 Intake: Oral 60 / 60 Output: Urine 750 / 750 900 / 900 Other: Weight 71.3 kg Patient Weight 12/01/17 23:59 Weight 71.3 kg Oncology: Obj Data - Labs CBC & Chem 7: 11/30/17 08:45 12/01/17 08:14 Labs: Laboratory Results - last 24 hr 12/01/17 08:14 Sodium 128 L Potassium 3.4 L Chloride 99 Carbon Dioxide 21 L BUN 8 Creatinine 0.47 L Est GFR ( Amer) > 60 Est GFR (Non-Af Amer) > 60 BUN/Creatinine Ratio 17 Glucose 120 H Calculated Osmolality 266 L Calcium 7.5 L - ABG Interpretation ABG results: PT/INR, D-dimer PT 13.9 Seconds (9.4-12.1) H 11/25/17 11:21 Inpatient Charges Provider: Dr. Donte Diez Follow up - Inpatient: [id number] - Attending Attestation I examined this patient and my medical decision-making was reviewed with the Advanced Practice Nurse. I agree with the documented findings, disposition and treatment plan as described except to the extent set forth below. 1. Esophagitis from concurrent chemoradiation. This has improved greatly. Mucositis is improving. He is able to tolerate liquid feeding. He should be able to tolerate semisolid ferritin of week or so 2. Neutropenia resolved currently neutrophil count 1900
--- NOTE | 2017-11-30 19:43 | Internal Med Progress Note ---
Hospitalist Progress Note - Encounter Date of Encounter: 11/30/17 Time of Encounter: 11:00 - Subjective Interval History: Physical therapy evaluated patient with recommendations for senior care placement due to generalized weakness and history of falls Patient is awaiting precertification for placement at senior care facility - Exam Vitals: Temp Pulse Resp BP Pulse Ox 97.6 F 95 18 124/71 96 11/30/17 19:13 11/30/17 19:13 11/30/17 19:13 11/30/17 19:13 11/30/17 19:13 Exam: Gen.: Nonacute distress, alert and oriented 3 ENT: Mucosal membranes moist Head: Patient with contusion on left parietal skull Respiratory: Lungs are clear to auscultation bilaterally without any wheezing rhonchi or rales Cardiovascular: Normal S1 and S2 regular rate rhythm no murmurs rubs or gallops Abdomen: Soft, nontender and nondistended with positive bowel sounds Extremities: No lower extremity edema Skin: Normal color Neuro: No neurological deficits noted Psychiatry: Normal mood - Assessment and Plan (1) Generalized weakness Current Visit: Yes Status: Acute Assessment and Plan: Patient with generalized weakness secondary to chemotherapy/radiation treatment 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 Neutrophils are improving; continue neutropenic precautions. Patient afebrile with negative urinalysis and chest x-ray therefore will not start antibiotics at this time Hematology oncology consulted with recommendations for supportive management at this time without growth factor support Will continue to monitor (4) Esophageal cancer Current Visit: Yes Status: Acute Assessment and Plan: Patient with stage III distal esophageal moderately differentiated adenocarcinoma He is currently in chemo/radiation tx Hematology/oncology consulted and appreciate any recommendations (5) Epigastric pain Current Visit: Yes Status: Acute Assessment and Plan: Epigastric discomfort secondary to radiation for esophageal cancer. Nutrition consulted for recommendations. Will continue to monitor (6) Anemia Current Visit: No Status: Acute Assessment and Plan: Hemoglobin 9.9 status post 1 unit of packed red blood cells Will continue to monitor (7) Hyponatremia Current Visit: Yes Status: Chronic Assessment and Plan: Sodium 128 on 11/27/17 Baseline has been 127 for the last 3 months Will continue to monitor (8) Hypertension Current Visit: No Status: Acute Assessment and Plan: Controlled; continue beta kade (9) CAD (coronary artery disease) of artery bypass graft Current Visit: No Status: Chronic Assessment and Plan: Patient with history of CABG and coronary stents 5 Continue aspirin and Plavix in addition to statin and beta kade - Time Spent with Patient Total time spent is greater than 50% in coordination of care (as documented) at patient's floor/unit and/or counseling patient: Internal Medicine: Result - Labs CBC & Chem 7: 11/30/17 08:45 11/30/17 08:45 Labs: Short CBC 11/30/17 Range/Units 08:45 WBC 2.7 L (4.3-11.1) K/mcL Hgb 9.9 L (12.9-16.9) g/dL Hct 29.3 L (37.5-50.1) % Plt Count 107 L (140-400) K/mcL Neutrophils # 1.9 (1.6-8.9) K/mcL BMP 11/30/17 11/30/17 03:52 08:45 Sodium 127 L Potassium 3.3 L 3.0 L Chloride 98 Carbon Dioxide 24 BUN 8 Creatinine 0.45 L Glucose 135 H Calcium 7.4 L - ABG Interpretation ABG results: PT/INR, D-dimer PT 13.9 Seconds (9.4-12.1) H 11/25/17 11:21 Consult Discharge Plan - Plan Referrals: Andrea Rojas Jr, MD [Primary Care Provider] - (Patient is going to Rehab) (2) Fall Qualifiers: Encounter type: initial encounter Qualified Code(s): W19.XXXA - Unspecified fall, initial encounter (4) Esophageal cancer Qualifiers: Malignant neoplasm of esophagus location: unspecified location Qualified Code (s): C15.9 - Malignant neoplasm of esophagus, unspecified (6) Anemia Qualifiers: Anemia type: unspecified type Qualified Code(s): D64.9 - Anemia, unspecified (8) Hypertension Qualifiers: Hypertension type: essential hypertension Qualified Code(s): I10 - Essential (primary) hypertension (9) CAD (coronary artery disease) of artery bypass graft Qualifiers: [place] vs. transplanted heart: unspecified whether [place] or transplanted heart
[2017-12-01] MEDS: *HR* Enoxaparin 40 MG/0.4 ML SYRINGE SQ SCH (06:01)
[2017-12-01] MEDS: Magic Mouthwash 10 ML UD Cup PO SCH ×2 (07:26→11:01)
[2017-12-01] MEDS: Folic Acid 1 MG TABLET PO SCH (07:26)
[2017-12-01] MEDS: Aspirin 81 MG TAB.CHEW PO SCH (07:26)
[2017-12-01] MEDS: Fenofibrate 54 MG TABLET PO SCH (07:26)
[2017-12-01] MEDS: Finasteride 5 MG TABLET PO SCH (07:26)
[2017-12-01] MEDS: Potassium Chloride Elixir 20 MEQ/15 ML UDC PO SCH (07:27)
[2017-12-01] MEDS: Sucralfate 1 GM TABLET PO SCH ×2 (07:27→11:01)
[2017-12-01 08:40] LABS: BUN/Creatinine Ratio 17 (6-26); Blood Urea Nitrogen 8 mg/dL (8-23); Calcium 7.5 mg/dL (8.6-10.3); Carbon Dioxide 21 mEq/L (23-29); Chloride 99 mEq/L (98-107); Glucose 120 mg/dL (70-105); Osmolality,Calculated 266 (280-300); Potassium 3.4 mEq/L (3.5-5.1); Sodium 128 mEq/L (136-145); eGFR For Non-African Americans > 60 (> 60)
[2017-12-01] MEDS: Beclomethasone 80mcg MDI IH SCH (10:34)
--- NOTE | 2017-12-01 10:55 | Discharge Summary ---
- NOTES TO OUTPATIENT PROVIDER Notes to Outpatient Provider: Patient is a 82-year-old male with past medical history significant for stage III distal esophageal moderately differentiated adenocarcinoma with chemotherapy-induced pancytopenia who presented due to mechanical fall generalized weakness. He had multiple electrolyte derangements on arrival which include chronic hyponatremia, hypomagnesemia, hypokalemia, and esophagitis. He was afebrile, urinalysis and chest x-ray unremarkable. Electrolytes Have been replaced and is stable. Oncology consulted however recommended supportive management with no intervention. Patient has mostly chronic problems which include recurrent falls and epigastric pain due to his esophageal cancer, and is currently stable to be discharged to correction facility for physical therapy. According to his daughter at the bedside, the patient has an adverse reaction to refuse which include confusion and weakness. She is his power of claim attorney and has recommended that he no longer be giving opiates. Request has been granted and opiates have been discontinued. Patient' s current medication list. Discharge to correction facility clinically stable condition. The patient is full code. Orders not resulted at time of discharge: Pending orders 12/02/17 04:00 Complete Blood Count [HEME] AM 0400 Date of Encounter: 12/01/17 Time of Encounter: 10:51 - Discharge Diagnosis (1) Anemia Priority: Secondary Status: Chronic Qualifiers: Anemia type: unspecified type Qualified Code(s): D64.9 - Anemia, unspecified (2) Hyponatremia Priority: Secondary Status: Chronic (3) Hypertension Priority: Secondary Status: Chronic Qualifiers: Hypertension type: essential hypertension Qualified Code(s): I10 - Essential (primary) hypertension (4) CAD (coronary artery disease) of artery bypass graft Priority: Secondary Status: Chronic Qualifiers: [place] vs. transplanted heart: [place] heart Associated angina: without angina Qualified Code(s): I25.810 - Atherosclerosis of coronary artery bypass graft(s) without angina pectoris (5) Esophageal cancer Priority: Secondary Status: Chronic Qualifiers: Malignant neoplasm of esophagus location: unspecified location Qualified Code(s): C15.9 - Malignant neoplasm of esophagus, unspecified (6) Chemotherapy induced neutropenia Priority: Secondary Status: Chronic (7) Epigastric pain Priority: Primary Status: Resolved (8) Fall Priority: Primary Status: Resolved Qualifiers: Encounter type: initial encounter Qualified Code(s): W19.XXXA - Unspecified fall, initial encounter (9) Generalized weakness Priority: Primary Status: Acute (10) Malnutrition Priority: Secondary Status: Chronic Qualifiers: Malnutrition type: protein-calorie malnutrition Protein-calorie malnutrition severity: moderate Qualified Code(s): E44.0 - Moderate protein- calorie malnutrition Hospital course: Mr. 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 He had multiple electrolyte derangements on arrival which include chronic hyponatremia, hypomagnesemia, hypokalemia, and esophagitis. He was afebrile, urinalysis and chest x-ray unremarkable. Electrolytes Have been replaced and is stable. Oncology consulted however recommended supportive management with no intervention. Patient has mostly chronic problems which include recurrent falls and epigastric pain due to his esophageal cancer, and is currently stable to be discharged to correction facility for physical therapy. According to his daughter at the bedside, the patient has an adverse reaction to refuse which include confusion and weakness. She is his power of claim attorney and has recommended that he no longer be giving opiates. Request has been granted and opiates have been discontinued. Patient' s current medication list. Discharge to correction facility clinically stable condition. The patient is full code. Discharge discussed with: patient, family, nurse - Time Spent with Patient Total time spent providing and/or coordinating discharge services: Greater than 30 minutes - Discharge Medications Home Medications: Aspirin 81 mg PO DAILY 01/21/16 [History] Atorvastatin [Lipitor] 40 mg PO HS 01/21/16 [History] Fenofibrate Nanocrystallized [Tricor] 145 mg PO DAILY 01/21/16 [History] Fexofenadine HCl [Allergy Relief] 180 mg PO DAILY PRN 01/21/16 [History] Folic Acid 1 mg PO DAILY 01/21/16 [History] Nitroglycerin [Nitrostat] 0.4 mg SL Q5M PRN 01/21/16 [History] Omeprazole [PriLOSEC] 20 mg PO DAILY 01/21/16 [History] Clopidogrel [Plavix] 75 mg PO DAILY 10/07/17 [History] Promethazine [Phenergan] 0.5 - 1 tab PO Q6HR PRN #30 tablet 10/08/17 [Rx] Metoprolol [Lopressor] 25 mg PO BID #60 tablet 10/29/17 [Rx] Ondansetron [Zofran ODT] 8 mg SL Q8H PRN 1 Days #60 tab 11/05/17 [Rx] Dutasteride [Avodart] 0.5 mg PO DAILY 11/25/17 [History] Fluticasone Propionate [Flovent Hfa] 1 inh IH BID 11/25/17 [History] Loperamide [Imodium] 2 mg PO Q4H PRN 11/25/17 [History] Magic Mouthwash [Magic Mouthwash BLM] 10 ml PO BID PRN 11/25/17 [History] Montelukast [Singulair] 10 mg PO DAILY 11/25/17 [History] Sucralfate [Carafate] 1 gm PO QID 11/25/17 [History] Tamsulosin [Flomax] 0.4 mg PO DAILY 11/25/17 [History] Triamcinolone Acet 0.1% OINT [Kenalog] 1 appl TP BID 11/25/17 [History] Acetaminophen [Tylenol] 325 mg PO Q6HR PRN tablet 12/01/17 [Rx] Calcium Carbonate [Tums] 1,000 mg PO Q4HR PRN tab.chew 12/01/17 [Rx] Lidocaine Viscous Oral Soln 15 ml MM TIDAC PRN solution 12/01/17 [Rx] Potassium Chloride Elixir [Potassium Chloride] 40 meq PO DAILY udc 12/01/17 [Rx ] Allergies/Adverse Reactions: 3 Allergy/AdvReac Type Severity Reaction Status Date / Time Penicillins [PCN] Allergy Hives Verified 11/25/17 14:03 Date of admission: 11/25/17 14:33 Primary care physician: Andrea Rojas Jr, MD Consults: 11/25/17 16:06 Consult to Physical Therapy [CONS] Routine Comment: Evaluate, develop and implement POC Reason for Consult: Home safety Does patient have active BEDREST order?: No Is patient medically & hemodynamically stable?: Yes Patient assessed for mobility or mobilized this visit?: No 11/25/17 16:08 Consult to Oncology Hematology [CONS] Routine Consulting Provider: Davina Anthony Reason for Consult: stage III distal esophageal moderately differentiated adenocarcinoma Call Completed: Yes 11/25/17 16:14 Consult to Nutrition [CONS] Routine Comment: Consulting Provider: NUTRITION Reason for Dietary Consult: MST Score 11/26/17 07:33 Consult to Occupational Therapy [CONS] Routine Comment: Evaluate, develop and implement POC Reason for Consult: eval for poss ecf, will need pre-cert Does patient have active BEDREST order?: No Is patient medically & hemodynamically stable?: Yes 11/27/17 07:47 Consult to Stencil Inspector [CONS] Routine Reason for SW Consult: needs ecf Discharging clinician: Klever Galindo Anticipated date of discharge: 12/01/17 - Constitutional Vitals: Temp Pulse Resp BP Pulse Ox 98 F 101 20 134/71 95 12/01/17 07:15 12/01/17 07:15 12/01/17 07:15 12/01/17 07:15 12/01/17 07:15 Exam: Gen.: Nonacute distress, alert and oriented 3 ENT: Mucosal membranes moist Head: Patient with contusion on left parietal skull Respiratory: Lungs are clear to auscultation bilaterally without any wheezing rhonchi or rales Cardiovascular: Normal S1 and S2 regular rate rhythm no murmurs rubs or gallops Abdomen: Soft, non-tender and non-distended with positive bowel sounds Extremities: No lower extremity edema Skin: Normal color Neuro: No neurological deficits noted Psychiatry: Normal mood - Patient Status Disposition: Transfer SNF Condition: Fair Functional capacity at discharge: uses cane/walker Overall status at discharge: patient is progressing back to baseline - Discharge Instructions Follow Up With: Andrea Rojas Jr, MD [Primary Care Provider] - (Patient is going to Rehab) - Diet and Activity Activity: as per physical therapy, increase activity as tolerated, resume usual activities as tolerated Diet: other (ANNA MILKSHAKES BID), regular diet
[2017-12-01] MEDS ORDERED: Acetaminophen 325 MG TABLET PO PRN (11:03)
--- NOTE | 2017-12-01 11:07 | Physician Discharge Referral ---
ExtendedCare Referral Info Transfer To: SNF/ECF Provider in Charge: Klever Galindo Provider in Charge after Transfer: PCP Institutional Level of Care: Skilled - Diagnosis (1) Anemia Priority: Secondary Status: Chronic (2) Hyponatremia Priority: Secondary Status: Chronic (3) Hypertension Priority: Secondary Status: Chronic (4) CAD (coronary artery disease) of artery bypass graft Priority: Secondary Status: Chronic (5) Esophageal cancer Priority: Secondary Status: Chronic (6) Chemotherapy induced neutropenia Priority: Primary Status: Chronic (7) Epigastric pain Priority: Primary Status: Resolved (8) Fall Priority: Primary Status: Resolved (9) Generalized weakness Priority: Primary Status: Acute (10) Malnutrition Priority: Secondary Status: Chronic Prognosis: Fair Aware of Diagnosis: Family Aware of Prognosis: Family - Transfer Medications Home Medications: Aspirin 81 mg PO DAILY 01/21/16 [History] Atorvastatin [Lipitor] 40 mg PO HS 01/21/16 [History] Fenofibrate Nanocrystallized [Tricor] 145 mg PO DAILY 01/21/16 [History] Fexofenadine HCl [Allergy Relief] 180 mg PO DAILY PRN 01/21/16 [History] Folic Acid 1 mg PO DAILY 01/21/16 [History] Nitroglycerin [Nitrostat] 0.4 mg SL Q5M PRN 01/21/16 [History] Omeprazole [PriLOSEC] 20 mg PO DAILY 01/21/16 [History] Clopidogrel [Plavix] 75 mg PO DAILY 10/07/17 [History] Promethazine [Phenergan] 0.5 - 1 tab PO Q6HR PRN #30 tablet 10/08/17 [Rx] Metoprolol [Lopressor] 25 mg PO BID #60 tablet 10/29/17 [Rx] Ondansetron [Zofran ODT] 8 mg SL Q8H PRN 1 Days #60 tab 11/05/17 [Rx] Dutasteride [Avodart] 0.5 mg PO DAILY 11/25/17 [History] Fluticasone Propionate [Flovent Hfa] 1 inh IH BID 11/25/17 [History] Loperamide [Imodium] 2 mg PO Q4H PRN 11/25/17 [History] Magic Mouthwash [Magic Mouthwash BLM] 10 ml PO BID PRN 11/25/17 [History] Montelukast [Singulair] 10 mg PO DAILY 11/25/17 [History] Sucralfate [Carafate] 1 gm PO QID 11/25/17 [History] Tamsulosin [Flomax] 0.4 mg PO DAILY 11/25/17 [History] Triamcinolone Acet 0.1% OINT [Kenalog] 1 appl TP BID 11/25/17 [History] Acetaminophen [Tylenol] 325 mg PO Q6HR PRN tablet 12/01/17 [Rx] Calcium Carbonate [Tums] 1,000 mg PO Q4HR PRN tab.chew 12/01/17 [Rx] Lidocaine Viscous Oral Soln 15 ml MM TIDAC PRN solution 12/01/17 [Rx] Potassium Chloride Elixir [Potassium Chloride] 40 meq PO DAILY udc 12/01/17 [Rx ] Allergies/Adverse Reactions: 3 Allergy/AdvReac Type Severity Reaction Status Date / Time Penicillins [PCN] Allergy Hives Verified 11/25/17 14:03 - Respiratory Orders Smoking Cessation: Smoking cessation has been advised. For more information, call the [place] Tobacco Quit Line at 1-465-VHFV-NOW. - Advance Directives Code Status: Full Code - Mobility Orders Ambulate - Rehabiliation Orders Rehab Orders: Evaluation for Physical Therapy, Evaluation for Occupational Therapy - Diet Orders Regular (ADD ANNA MILK SHAKES BID) CERTIFICATION: I certify that the transfer of the above named patient to an Extended Care Facility is necessary for the continuing treatment of the diagnosis listed. The above information is true and accurate reflection of patient's current condition. Confidential - Redisclosure prohibited without a patient's written consent.
[2017-12-01 11:16] VITALS: BP 122/75
== END 2017-12-01 12:38 ==
LOC: 2ANU 09:18 → EMEROOARM 09:18 → SUATTDRO 14:33 → 2ANU 15:20
PROVIDERS: ADMIT Internal Medicine; ATTEND Internal Medicine

== ENCOUNTER 2017-12-26 14:24 | Inpatient (IN) ==
[2017-12-26] MEDS ORDERED: 0.9 % Sodium Chloride 1,000 ML IVC ONE (14:42)
[2017-12-26 15:11] LABS: INR 1.1; Prothrombin Time 12.9 Seconds (9.4-12.1)
[2017-12-26 15:13] LABS: Activated Partial Thrombo Time 27.4 Seconds (26.0-36.0)
--- NOTE | 2017-12-26 15:16 | Emergency Department Note ---
Disposition Clinical Impression: SIRS (systemic inflammatory response syndrome), Weakness Chest pain Qualifiers: Chest pain type: unspecified Qualified Code(s): R07.9 - Chest pain, unspecified Leukocytosis Qualifiers: Leukocytosis type: unspecified Qualified Code(s): D72.829 - Elevated white blood cell count, unspecified Disposition: Admitted As Inpatient Condition: Good Time of Disposition: 20:28 General Adult HPI - General Chief complaint: ED Chest Pain Stated complaint: chest pain, weakness Time Seen by Provider: 12/26/17 14:30 Source: patient, family Limitations: no limitations Nursing Notes Reviewed: Yes Vital Signs Reviewed: Yes - History of Present Illness HPI Narrative: 82-year-old male history of CABG and recent esophageal cancer completed chemoradiation therapy presents emergency department with weakness, vomiting and chest pain. Patient reports last night experiencing chest pain that has now resolved. States this started last night around 6 PM in progress throughout the night and into this morning at 10 AM. Since then he has not experienced this chest pain. He describes as a sharp pain that he initially thought was due to the radiation treatment however the pain was different he states. He attempted to take a nitro which did not relieve it at the time. He has also reported 2 episodes of nonbloody emesis. No associated pain with it. Patient lives alone and his family is present in the room. States that he recently was evaluated by his physician and told that his potassium was low. He has been given supplemental potassium tablets however he has been unable to take it. No prior history of this. There also concerned that he has not been eating and drinking as well and that he has lost weight. He denies any shortness of breath. Denies any recent illness cough congestion or fever. No recent injury or fall. His oncologist is Dr. Lloyd. No history of heart failure. Pain Scale: 3 - Related Data Home Medications Medication Instructions Recorded Confirmed RX: Aspirin 81 mg PO DAILY 01/21/16 12/23/17 RX: Atorvastatin [Lipitor] 40 mg PO HS 01/21/16 12/23/17 RX: Fenofibrate Nanocrystallized 145 mg PO DAILY 01/21/16 12/23/17 [Tricor] RX: Fexofenadine HCl [Allergy 180 mg PO DAILY PRN 01/21/16 12/23/17 Relief] RX: Folic Acid 1 mg PO DAILY 01/21/16 12/23/17 RX: Nitroglycerin [Nitrostat] 0.4 mg SL Q5M PRN 01/21/16 12/23/17 RX: Omeprazole [PriLOSEC] 20 mg PO DAILY 01/21/16 12/23/17 RX: Clopidogrel [Plavix] 75 mg PO DAILY 10/07/17 12/23/17 RX: Dutasteride [Avodart] 0.5 mg PO DAILY 11/25/17 12/23/17 RX: Fluticasone Propionate 1 inh IH BID 11/25/17 12/23/17 [Flovent Hfa] RX: Loperamide [Imodium] 2 mg PO Q4H PRN 11/25/17 12/23/17 RX: Magic Mouthwash [Magic 10 ml PO BID PRN 11/25/17 12/23/17 Mouthwash BLM] RX: Montelukast [Singulair] 10 mg PO DAILY 11/25/17 12/23/17 RX: Sucralfate [Carafate] 1 gm PO QID 11/25/17 12/23/17 RX: Tamsulosin [Flomax] 0.4 mg PO DAILY 11/25/17 12/23/17 RX: Triamcinolone Acet 0.1% OINT 1 appl TP BID 11/25/17 12/23/17 [Kenalog] Previous Rx's Medication Instructions Recorded RX: Promethazine [Phenergan] 0.5 - 1 tab PO Q6HR PRN #30 tablet 10/08/17 RX: Metoprolol [Lopressor] 25 mg PO BID #60 tablet 10/29/17 RX: Ondansetron [Zofran ODT] 8 mg SL Q8H PRN 1 Days #60 tab 11/05/17 RX: Acetaminophen [Tylenol] 325 mg PO Q6HR PRN tablet 12/01/17 RX: Calcium Carbonate [Tums] 1,000 mg PO Q4HR PRN tab.chew 12/01/17 RX: Lidocaine Viscous Oral Soln 15 ml MM TIDAC PRN solution 12/01/17 RX: Potassium Chloride Elixir 40 meq PO DAILY udc 12/01/17 [Potassium Chloride] RX: Potassium Chloride [Klor-Con] 40 meq PO BID #120 packet 12/23/17 Allergies Allergy/AdvReac Type Severity Reaction Status Date / Time Penicillins [PCN] Allergy Hives Verified 12/26/17 14:33 All systems ED: reviewed and negative except as stated. Review of Systems: As Per HPI Constitutional: Reports: weakness, weight change (Loss). Denies: fever, chills ENT ED: Denies: congestion Cardiovascular: Reports: chest pain Respiratory: Denies: cough, dyspnea Gastrointestinal: Reports: nausea, vomiting. Denies: abdominal pain, diarrhea Genitourinary: Denies: urgency, dysuria Musculoskeletal: Denies: back pain, neck pain Integumentary: Denies: rash Neurological: Reports: weakness. Denies: headache Psychiatric: Denies: anxiety Hematological/Lymphatic: Denies: easy bleeding Past Medical History - Past Medical History Attestation: Yes The following information was validated with the patient. Source: patient Medical history: Reports: asthma, cancer, COPD, coronary artery disease, hyperlipidemia, hypertension, myocardial infarction Surgical history: Reports: angioplasty/stent, cataract, coronary bypass (CABG) Psychiatric history: Reports: no psych history - Social History Smoking Status: Former smoker Smokeless Tobacco Status: No Alcohol use: Reports: rarely Drug use: Reports: none Physical Exam - General Limitations: no limitations General appearance: alert, in no apparent distress - Head Head exam: atraumatic, normocephalic - Eye Eye exam: Present: normal appearance, PERRL, EOMI. Absent: scleral icterus - ENT ENT exam: normal exam, normal oropharynx, mucous membranes moist - Neck Neck exam: Present: normal inspection, full ROM, trachea midline - Chest Chest inspection: Present: normal inspection, symmetric chest wall rise, other (Midsternal scar) - Respiratory Respiratory exam: Present: normal lung sounds bilaterally. Absent: respiratory distress, wheezes - Cardiovascular Cardiovascular exam: Present: regular rate, normal rhythm, normal heart sounds - Abdominal Exam Abdominal exam: Present: soft, Non-Tender, normal bowel sounds. Absent: tenderness, distention, guarding, rebound, rigidity, See's sign, tenderness at McBurney's Point - Extremities Exam Extremities exam: Present: normal inspection, full ROM, normal capillary refill. Absent: tenderness, pedal edema - Neurological Exam Neurological exam: Present: alert, oriented X3 - Psychiatric Psychiatric exam: Present: normal affect, normal mood - Skin Skin exam: Present: warm, dry, intact, normal color. Absent: rash, cyanosis, diaphoresis Course Course Narrative: Patient presents with the complaint of chest pain weakness and vomiting. Due to his esophageal cancer and completion of chemoradiation patient has been feeling weak. No reported fevers at home. He has a lost appetite and currently takes appetite stimulant with some improvement. He reports some intermittent pain in his chest last night that has improved here. He has a history of CAD. Currently chest pain free. No reports of any recent illness. His last evaluation he was told that his potassium was low and given the recent vomiting their concern a continued to be low as he is been unable to swallow the pills and states the elixir has a bad taste. On examination he appears in no acute distress. Heart's regular rate and rhythm. Lungs are clear auscultation bilaterally. He does not appear dehydrated. He is otherwise awake alert and oriented to person place and time. Given his recent chest pain chest pain workup initiated. He has taken aspirin earlier today - Reevaluation(s) Reevaluation #1: There was a delay in the CBC, his white blood cell count was significantly elevated from prior to 14. Patient is tachycardic and does meet SIRS criteria at this time. Chest x-ray shows a resolving pneumonia however patient does not recall or report any recent fever cough or shortness of breath. He is denying any urinary complaints. His abdomen is soft nontender nondistended. At this time will complete the sepsis evaluation with a lactate and blood cultures. He is not hypotensive but does appear slightly dehydrated and has received 1 L normal saline. Time: 16:41 Reevaluation #2: Patients lactate is elevated 2.6. He is not hypotensive. Will fluid resuscitation here in the emergency department with normal saline. His chest pain continues to be absent. Patient would benefit admission for further monitoring given his new leukocytosis in history of immunosuppression. He has been initiated on vancomycin and cefepime to treat any occult bacteremia. Patient family are in agreement with this plan. Impression is chest pain, w eakness, SIRS, leukocytosis - Consultations Consultation #1: Spoke with on-call hospitalist lorena Nicolas to admit for leukocytosis, SIRS, weakness, chest pain. No further orders at this time Time: 20:20 Vital Signs Temperature 97.8 F 12/26/17 14:31 Pulse Rate 107 11/10/18 14:31 Respiratory Rate 18 12/26/17 14:31 O2 Sat by Pulse Oximetry 95 12/26/17 14:31 Temperature 97.8 F 12/26/17 14:37 Pulse Rate 100 12/26/17 19:50 Respiratory Rate 26 12/26/17 19:50 Blood Pressure 153/72 12/26/17 19:50 O2 Sat by Pulse Oximetry 96 12/26/17 19:50 Oxygen Delivery Oxygen Delivery Room Air Medical Decision Making - MDM Narrative Medical decision making narrative: Patient was discussed with my attending physician who agrees with ED management and final disposition. They independently evaluated the patient. Please refer to their attestation to this encounter for additional information. This note was generated by [employer] voice recognition software and as a result grammatical or spelling errors may occur using this program. - Medical Records Medical records reviewed: Yes I reviewed the patient's medical records. - Lab Data Lab results reviewed: Yes I reviewed the patient's lab results. Result diagrams: 12/26/17 16:03 12/26/17 14:56 Lab Results 12/26/17 12/26/17 12/26/17 Range/Units 14:56 14:56 16:03 WBC 14.0 H D (4.3-11.1) K/mcL RBC 4.34 (4.19-5.50) M/mcL Hgb 11.9 L D (12.9-16.9) g/dL Hct 38.1 (37.5-50.1) % MCV 87.8 D (83.0-100.0) fL MCH 27.4 L (28.0-33.3) pg MCHC 31.2 L (31.6-35.5) g/dL RDW 14.3 (11.5-14.5) % Plt Count 245 (140-400) K/mcL MPV 9.7 (9.4-12.4) fL Immature Gran % 0.3 (0-4) % Seg Neutrophils % 79.5 % Lymphocytes % 10.9 % Monocytes % 8.6 % Eosinophils % 0.4 % Basophils % 0.3 % Neutrophils # 11.1 H (1.6-8.9) K/mcL Lymphocytes # 1.5 (0.6-4.6) K/mcL Monocytes # 1.2 (0.0-1.3) K/mcL Eosinophils # 0.1 (0.0-0.6) K/mcL Basophils # 0.0 (0.0-0.2) K/mcL PT 12.9 H (9.4-12.1) Seconds INR 1.1 APTT 27.4 (26.0-36.0) Seconds Sodium 132 L (136-145) mEq/L Potassium 3.2 L (3.5-5.1) mEq/L Chloride 93 L (98-107) mEq/L Carbon Dioxide 26 (23-29) mEq/L BUN 11 (8-23) mg/dL Creatinine 0.72 (0.70-1.30) mg/dL Est GFR ( Amer) > 60 (> 60) Est GFR (Non-Af Amer) > 60 (> 60) BUN/Creatinine Ratio 15 (6-26) Glucose 179 H (70-105) mg/dL Calculated Osmolality 278 L (280-300) Lactic Acid (0.5-2.2) mmol/L Calcium 9.8 (8.6-10.3) mg/dL Magnesium (1.6-2.6) mg/dL Total Bilirubin (0.3-1.0) mg/dL Direct Bilirubin (0.0-0.2) mg/dL Indirect Bilirubin (0.0-1.2) mg/dL AST (13-39) Units/L ALT (7-52) Units/L Alkaline Phosphatase (34-104) Units/L Troponin I 0.03 (< 0.04) ng/mL Serum Total Protein (6.4-8.9) g/dL Albumin (3.5-5.7) g/dL Globulin (2.4-3.5) g/dL Albumin/Globulin Ratio (1.1-2.2) Lipase (11-82) Units/L Urine Color (Yellow) Urine Clarity (Clear) Urine pH (5.0-8.0) pH Units Ur Specific [place] (1.010-1.025) Urine Protein (Neg-Trace) mg/dL Urine Glucose (UA) (Normal) mg/dL Urine Ketones (Negative) mg/dL Urine Blood (Negative) Urine Nitrite (Negative) Urine Bilirubin (Negative) Urine Urobilinogen (Normal) mg/dL Ur Leukocyte Esterase (Negative) Ur Culture Indicated? (NO) 12/26/17 12/26/17 12/26/17 Range/Units 16:03 16:50 17:13 WBC (4.3-11.1) K/mcL RBC (4.19-5.50) M/mcL Hgb (12.9-16.9) g/dL Hct (37.5-50.1) % MCV (83.0-100.0) fL MCH (28.0-33.3) pg MCHC (31.6-35.5) g/dL RDW (11.5-14.5) % Plt Count (140-400) K/mcL MPV (9.4-12.4) fL Immature Gran % (0-4) % Seg Neutrophils % % Lymphocytes % % Monocytes % % Eosinophils % % Basophils % % Neutrophils # (1.6-8.9) K/mcL Lymphocytes # (0.6-4.6) K/mcL Monocytes # (0.0-1.3) K/mcL Eosinophils # (0.0-0.6) K/mcL Basophils # (0.0-0.2) K/mcL PT (9.4-12.1) Seconds INR APTT (26.0-36.0) Seconds Sodium (136-145) mEq/L Potassium (3.5-5.1) mEq/L Chloride (98-107) mEq/L Carbon Dioxide (23-29) mEq/L BUN (8-23) mg/dL Creatinine (0.70-1.30) mg/dL Est GFR ( Amer) (> 60) Est GFR (Non-Af Amer) (> 60) BUN/Creatinine Ratio (6-26) Glucose (70-105) mg/dL Calculated Osmolality (280-300) Lactic Acid 2.6 H (0.5-2.2) mmol/L Calcium (8.6-10.3) mg/dL Magnesium 2.4 (1.6-2.6) mg/dL Total Bilirubin (0.3-1.0) mg/dL Direct Bilirubin (0.0-0.2) mg/dL Indirect Bilirubin (0.0-1.2) mg/dL AST (13-39) Units/L ALT (7-52) Units/L Alkaline Phosphatase (34-104) Units/L Troponin I (< 0.04) ng/mL Serum Total Protein (6.4-8.9) g/dL Albumin (3.5-5.7) g/dL Globulin (2.4-3.5) g/dL Albumin/Globulin Ratio (1.1-2.2) Lipase (11-82) Units/L Urine Color Yellow (Yellow) Urine Clarity Clear (Clear) Urine pH 7.5 (5.0-8.0) pH Units Ur Specific [place] 1.013 (1.010-1.025) Urine Protein Negative (Neg-Trace) mg/dL Urine Glucose (UA) Normal (Normal) mg/dL Urine Ketones Negative (Negative) mg/dL Urine Blood Negative (Negative) Urine Nitrite Negative (Negative) Urine Bilirubin Negative (Negative) Urine Urobilinogen Normal (Normal) mg/dL Ur Leukocyte Esterase Negative (Negative) Ur Culture Indicated? NO (NO) 12/26/17 Range/Units 17:13 WBC (4.3-11.1) K/mcL RBC (4.19-5.50) M/mcL Hgb (12.9-16.9) g/dL Hct (37.5-50.1) % MCV (83.0-100.0) fL MCH (28.0-33.3) pg MCHC (31.6-35.5) g/dL RDW (11.5-14.5) % Plt Count (140-400) K/mcL MPV (9.4-12.4) fL Immature Gran % (0-4) % Seg Neutrophils % % Lymphocytes % % Monocytes % % Eosinophils % % Basophils % % Neutrophils # (1.6-8.9) K/mcL Lymphocytes # (0.6-4.6) K/mcL Monocytes # (0.0-1.3) K/mcL Eosinophils # (0.0-0.6) K/mcL Basophils # (0.0-0.2) K/mcL PT (9.4-12.1) Seconds INR APTT (26.0-36.0) Seconds Sodium (136-145) mEq/L Potassium (3.5-5.1) mEq/L Chloride (98-107) mEq/L Carbon Dioxide (23-29) mEq/L BUN (8-23) mg/dL Creatinine (0.70-1.30) mg/dL Est GFR ( Amer) (> 60) Est GFR (Non-Af Amer) (> 60) BUN/Creatinine Ratio (6-26) Glucose (70-105) mg/dL Calculated Osmolality (280-300) Lactic Acid (0.5-2.2) mmol/L Calcium (8.6-10.3) mg/dL Magnesium (1.6-2.6) mg/dL Total Bilirubin 1.2 H (0.3-1.0) mg/dL Direct Bilirubin 0.4 H (0.0-0.2) mg/dL Indirect Bilirubin 0.8 (0.0-1.2) mg/dL AST 26 (13-39) Units/L ALT 12 (7-52) Units/L Alkaline Phosphatase 86 (34-104) Units/L Troponin I (< 0.04) ng/mL Serum Total Protein 6.4 (6.4-8.9) g/dL Albumin 3.3 L (3.5-5.7) g/dL Globulin 3.1 (2.4-3.5) g/dL Albumin/Globulin Ratio 1.1 (1.1-2.2) Lipase 15 (11-82) Units/L Urine Color (Yellow) Urine Clarity (Clear) Urine pH (5.0-8.0) pH Units Ur Specific [place] (1.010-1.025) Urine Protein (Neg-Trace) mg/dL Urine Glucose (UA) (Normal) mg/dL Urine Ketones (Negative) mg/dL Urine Blood (Negative) Urine Nitrite (Negative) Urine Bilirubin (Negative) Urine Urobilinogen (Normal) mg/dL Ur Leukocyte Esterase (Negative) Ur Culture Indicated? (NO) - Radiology Data Radiology results reviewed: Yes I reviewed the patient's radiology results. Chest X-Ray 12/26/17 14:34 IMPRESSION: No acute process. Decreased right upper lobe airspace disease most likely representing resolving pneumonia D/ / Robin Isbell MD / Robin Isbell MD Interpreting Provider: Robin Isbell MD - EKG Data EKG #1 EKG attestation: Yes I reviewed and interpreted this EKG. Interpretation: no acute changes, normal EKG
[2017-12-26 15:30] LABS: Troponin I 0.03 ng/mL (< 0.04)
[2017-12-26 15:31] LABS: BUN/Creatinine Ratio 15 (6-26); Blood Urea Nitrogen 11 mg/dL (8-23); Calcium 9.8 mg/dL (8.6-10.3); Carbon Dioxide 26 mEq/L (23-29); Chloride 93 mEq/L (98-107); Glucose 179 mg/dL (70-105); Osmolality,Calculated 278 (280-300); Potassium 3.2 mEq/L (3.5-5.1); Sodium 132 mEq/L (136-145); eGFR For Non-African Americans > 60 (> 60)
[2017-12-26 16:15] LABS: Basophils % 0.3 %; Eosinophils # 0.1 K/mcL (0.0-0.6); Eosinophils % 0.4 %; Hematocrit 38.1 % (37.5-50.1); Hemoglobin 11.9 g/dL (12.9-16.9); Immature Granulocytes % 0.3 % (0-4); Lymphocytes # 1.5 K/mcL (0.6-4.6); Lymphocytes % 10.9 %; Mean Corpuscular HGB Conc 31.2 g/dL (31.6-35.5); Mean Corpuscular Hemoglobin 27.4 pg (28.0-33.3); Mean Corpuscular Volume 87.8 fL (83.0-100.0); Mean Platelet Volume 9.7 fL (9.4-12.4); Monocytes # 1.2 K/mcL (0.0-1.3); Monocytes % 8.6 %; Platelet Count 245 K/mcL (140-400); Red Blood Count 4.34 M/mcL (4.19-5.50); Red Cell Distribution Width 14.3 % (11.5-14.5); Segmented Neutrophils % 79.5 %
[2017-12-26 16:19] LABS: Neutrophils # 11.1 K/mcL (1.6-8.9)
[2017-12-26 17:06] LABS: Bilirubin,Urine Negative (Negative); Blood,Urine Negative (Negative); Clarity,Urine Clear (Clear); Color,Urine Yellow (Yellow); Glucose,Urine (UA) Normal (Normal); Ketones,Urine Negative (Negative); Leukocyte Esterase,Urine Negative (Negative); Nitrite,Urine Negative (Negative); PH,Urine 7.5 pH Units (5.0-8.0); Protein,Urine Negative (Neg-Trace); Specific Gravity,Urine 1.013 (1.010-1.025); Urobilinogen,Urine Normal (Normal)
[2017-12-26 17:45] LABS: Albumin 3.3 g/dL (3.5-5.7); Albumin/Globulin Ratio 1.1 (1.1-2.2); Bilirubin,Direct 0.4 mg/dL (0.0-0.2); Bilirubin,Indirect 0.8 mg/dL (0.0-1.2); Bilirubin,Total 1.2 mg/dL (0.3-1.0); Globulin 3.1 g/dL (2.4-3.5); Total Protein 6.4 g/dL (6.4-8.9)
--- NOTE | 2017-12-26 18:20 | Emergency Department Note ---
Disposition Clinical Impression: Chest pain Qualifiers: Chest pain type: unspecified Qualified Code(s): R07.9 - Chest pain, unspecified Disposition: Admitted As Inpatient Referrals: Andrea Rojas Jr, MD [Primary Care Provider] - Forms: ED Satisfaction Letter General Adult HPI - General Chief complaint: ED Chest Pain Stated complaint: chest pain, weakness Time Seen by Provider: 12/26/17 14:30 Source: patient, family Limitations: no limitations - History of Present Illness Pain Scale: 3 - Related Data Home Medications Medication Instructions Recorded Confirmed Aspirin 81 mg PO DAILY 01/21/16 12/23/17 Atorvastatin [Lipitor] 40 mg PO HS 01/21/16 12/23/17 Fenofibrate Nanocrystallized 145 mg PO DAILY 01/21/16 12/23/17 [Tricor] Fexofenadine HCl [Allergy Relief] 180 mg PO DAILY PRN 01/21/16 12/23/17 Folic Acid 1 mg PO DAILY 01/21/16 12/23/17 Nitroglycerin [Nitrostat] 0.4 mg SL Q5M PRN 01/21/16 12/23/17 Omeprazole [PriLOSEC] 20 mg PO DAILY 01/21/16 12/23/17 Clopidogrel [Plavix] 75 mg PO DAILY 10/07/17 12/23/17 Dutasteride [Avodart] 0.5 mg PO DAILY 11/25/17 12/23/17 Fluticasone Propionate [Flovent 1 inh IH BID 11/25/17 12/23/17 Hfa] Loperamide [Imodium] 2 mg PO Q4H PRN 11/25/17 12/23/17 Magic Mouthwash [Magic Mouthwash 10 ml PO BID PRN 11/25/17 12/23/17 BLM] Montelukast [Singulair] 10 mg PO DAILY 11/25/17 12/23/17 Sucralfate [Carafate] 1 gm PO QID 11/25/17 12/23/17 Tamsulosin [Flomax] 0.4 mg PO DAILY 11/25/17 12/23/17 Triamcinolone Acet 0.1% OINT 1 appl TP BID 11/25/17 12/23/17 [Kenalog] Previous Rx's Medication Instructions Recorded Promethazine [Phenergan] 0.5 - 1 tab PO Q6HR PRN #30 tablet 10/08/17 Metoprolol [Lopressor] 25 mg PO BID #60 tablet 10/29/17 Ondansetron [Zofran ODT] 8 mg SL Q8H PRN 1 Days #60 tab 11/05/17 Acetaminophen [Tylenol] 325 mg PO Q6HR PRN tablet 12/01/17 Calcium Carbonate [Tums] 1,000 mg PO Q4HR PRN tab.chew 12/01/17 Lidocaine Viscous Oral Soln 15 ml MM TIDAC PRN solution 12/01/17 Potassium Chloride Elixir 40 meq PO DAILY udc 12/01/17 [Potassium Chloride] Potassium Chloride [Klor-Con] 40 meq PO BID #120 packet 12/23/17 Allergies Allergy/AdvReac Type Severity Reaction Status Date / Time Penicillins [PCN] Allergy Hives Verified 12/26/17 14:33 Constitutional: Reports: weakness, weight change (Loss). Denies: fever, chills ENT ED: Denies: congestion Cardiovascular: Reports: chest pain Respiratory: Denies: cough, dyspnea Gastrointestinal: Reports: nausea, vomiting. Denies: abdominal pain, diarrhea Genitourinary: Denies: urgency, dysuria Musculoskeletal: Denies: back pain, neck pain Integumentary: Denies: rash Neurological: Reports: weakness. Denies: headache Psychiatric: Denies: anxiety Hematological/Lymphatic: Denies: easy bleeding Past Medical History - Past Medical History Medical history: Reports: asthma, cancer, COPD, coronary artery disease, hyperlipidemia, hypertension, myocardial infarction Surgical history: Reports: angioplasty/stent, cataract, coronary bypass (CABG) Psychiatric history: Reports: no psych history - Social History Smoking Status: Former smoker Smokeless Tobacco Status: No Alcohol use: Reports: rarely Drug use: Reports: none Physical Exam - General Limitations: no limitations General appearance: alert, in no apparent distress Course Vital Signs Temperature 97.8 F 12/26/17 14:31 Pulse Rate 107 12/26/17 14:31 Respiratory Rate 18 12/26/17 14:31 O2 Sat by Pulse Oximetry 95 12/26/17 14:31 Temperature 97.8 F 12/26/17 14:37 Pulse Rate 100 12/26/17 17:49 Respiratory Rate 18 12/26/17 17:49 Blood Pressure 135/67 12/26/17 17:49 O2 Sat by Pulse Oximetry 100 12/26/17 17:49 Oxygen Delivery Oxygen Delivery Room Air Medical Decision Making - Lab Data Result diagrams: 12/26/17 16:03 12/26/17 14:56 Lab Results 12/26/17 12/26/17 12/26/17 Range/Units 14:56 14:56 16:03 WBC 14.0 H D (4.3-11.1) K/mcL RBC 4.34 (4.19-5.50) M/mcL Hgb 11.9 L D (12.9-16.9) g/dL Hct 38.1 (37.5-50.1) % MCV 87.8 D (83.0-100.0) fL MCH 27.4 L (28.0-33.3) pg MCHC 31.2 L (31.6-35.5) g/dL RDW 14.3 (11.5-14.5) % Plt Count 245 (140-400) K/mcL MPV 9.7 (9.4-12.4) fL Immature Gran % 0.3 (0-4) % Seg Neutrophils % 79.5 % Lymphocytes % 10.9 % Monocytes % 8.6 % Eosinophils % 0.4 % Basophils % 0.3 % Neutrophils # 11.1 H (1.6-8.9) K/mcL Lymphocytes # 1.5 (0.6-4.6) K/mcL Monocytes # 1.2 (0.0-1.3) K/mcL Eosinophils # 0.1 (0.0-0.6) K/mcL Basophils # 0.0 (0.0-0.2) K/mcL PT 12.9 H (9.4-12.1) Seconds INR 1.1 APTT 27.4 (26.0-36.0) Seconds Sodium 132 L (136-145) mEq/L Potassium 3.2 L (3.5-5.1) mEq/L Chloride 93 L (98-107) mEq/L Carbon Dioxide 26 (23-29) mEq/L BUN 11 (8-23) mg/dL Creatinine 0.72 (0.70-1.30) mg/dL Est GFR ( Amer) > 60 (> 60) Est GFR (Non-Af Amer) > 60 (> 60) BUN/Creatinine Ratio 15 (6-26) Glucose 179 H (70-105) mg/dL Calculated Osmolality 278 L (280-300) Calcium 9.8 (8.6-10.3) mg/dL Magnesium (1.6-2.6) mg/dL Total Bilirubin (0.3-1.0) mg/dL Direct Bilirubin (0.0-0.2) mg/dL Indirect Bilirubin (0.0-1.2) mg/dL AST (13-39) Units/L ALT (7-52) Units/L Alkaline Phosphatase (34-104) Units/L Troponin I 0.03 (< 0.04) ng/mL Serum Total Protein (6.4-8.9) g/dL Albumin (3.5-5.7) g/dL Globulin (2.4-3.5) g/dL Albumin/Globulin Ratio (1.1-2.2) Lipase (11-82) Units/L Urine Color (Yellow) Urine Clarity (Clear) Urine pH (5.0-8.0) pH Units Ur Specific [place] (1.010-1.025) Urine Protein (Neg-Trace) mg/dL Urine Glucose (UA) (Normal) mg/dL Urine Ketones (Negative) mg/dL Urine Blood (Negative) Urine Nitrite (Negative) Urine Bilirubin (Negative) Urine Urobilinogen (Normal) mg/dL Ur Leukocyte Esterase (Negative) Ur Culture Indicated? (NO) 12/26/17 12/26/17 12/26/17 Range/Units 16:03 16:50 17:13 WBC (4.3-11.1) K/mcL RBC (4.19-5.50) M/mcL Hgb (12.9-16.9) g/dL Hct (37.5-50.1) % MCV (83.0-100.0) fL MCH (28.0-33.3) pg MCHC (31.6-35.5) g/dL RDW (11.5-14.5) % Plt Count (140-400) K/mcL MPV (9.4-12.4) fL Immature Gran % (0-4) % Seg Neutrophils % % Lymphocytes % % Monocytes % % Eosinophils % % Basophils % % Neutrophils # (1.6-8.9) K/mcL Lymphocytes # (0.6-4.6) K/mcL Monocytes # (0.0-1.3) K/mcL Eosinophils # (0.0-0.6) K/mcL Basophils # (0.0-0.2) K/mcL PT (9.4-12.1) Seconds INR APTT (26.0-36.0) Seconds Sodium (136-145) mEq/L Potassium (3.5-5.1) mEq/L Chloride (98-107) mEq/L Carbon Dioxide (23-29) mEq/L BUN (8-23) mg/dL Creatinine (0.70-1.30) mg/dL Est GFR ( Amer) (> 60) Est GFR (Non-Af Amer) (> 60) BUN/Creatinine Ratio (6-26) Glucose (70-105) mg/dL Calculated Osmolality (280-300) Calcium (8.6-10.3) mg/dL Magnesium 2.4 (1.6-2.6) mg/dL Total Bilirubin 1.2 H (0.3-1.0) mg/dL Direct Bilirubin 0.4 H (0.0-0.2) mg/dL Indirect Bilirubin 0.8 (0.0-1.2) mg/dL AST 26 (13-39) Units/L ALT 12 (7-52) Units/L Alkaline Phosphatase 86 (34-104) Units/L Troponin I (< 0.04) ng/mL Serum Total Protein 6.4 (6.4-8.9) g/dL Albumin 3.3 L (3.5-5.7) g/dL Globulin 3.1 (2.4-3.5) g/dL Albumin/Globulin Ratio 1.1 (1.1-2.2) Lipase 15 (11-82) Units/L Urine Color Yellow (Yellow) Urine Clarity Clear (Clear) Urine pH 7.5 (5.0-8.0) pH Units Ur Specific [place] 1.013 (1.010-1.025) Urine Protein Negative (Neg-Trace) mg/dL Urine Glucose (UA) Normal (Normal) mg/dL Urine Ketones Negative (Negative) mg/dL Urine Blood Negative (Negative) Urine Nitrite Negative (Negative) Urine Bilirubin Negative (Negative) Urine Urobilinogen Normal (Normal) mg/dL Ur Leukocyte Esterase Negative (Negative) Ur Culture Indicated? NO (NO) Attestation Statement - Attestation Attestation: I examined this patient and my medical decision-making was reviewed with the Resident Physician. I agree with the documented findings, disposition and treatment plan as described except to the extent set forth below. 82 year old male presents to the ED with complaints of chest pain and has resolvingin pneumoina from an outptinet setting. Pastinet has an elevated WBC today and we will continue with cardiopulmonary workup and then likey admit to medicine
[2017-12-26] MEDS ORDERED: Cefepime HCl 1,000 MG in Water for inj. (sterile) 20 ML 10 ML IVP ONE (19:30)
[2017-12-26] MEDS ORDERED: Magic Mouthwash 10 ML UD Cup PO PRN (20:50)
[2017-12-26] MEDS ORDERED: Lidocaine Viscous Oral Soln 15 ML SOLUTION MM PRN (20:50)
[2017-12-26] MEDS ORDERED: Ondansetron ODT 4 MG TAB.RAPDIS SL PRN (20:50)
[2017-12-26] MEDS ORDERED: Potassium Chloride Elixir 20 MEQ/15 ML UDC PO ONE (20:50)
[2017-12-26] MEDS ORDERED: Nitroglycerin 0.4 MG TAB.SUBL SL PRN (20:50)
[2017-12-26] MEDS ORDERED: Ringers Solution, Lactated 1,000 ML IVC SCH (21:00)
[2017-12-26] MEDS ORDERED: Isovue-370 500 ML INFUS..BTL IV ONE (21:05)
--- NOTE | 2017-12-26 21:14 | Internal Med History&Physical ---
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 He was discharged on 12/10. He presents again today complaining of weakness and pain in the lower chest/upper abdomen area that started earlier today. No reports of fever at home. He says he could not sleep all through last night and feels this is the reason he was notably weak and tired today. He does state that his appetite remains poor. Arrival to the ER he was clinically stable however he was somewhat tachycardic and seen to have a leukocyte count of 14 with an elevated lactic acid. Chest x-ray reported signs of resolving pneumonia. The patient denies fever, cough, shortness of breath or sputum production. He denies dysuria. Denies abdominal pain at this time. He was not hypotensive but appeared somewhat dehydrated and received 1 L of normal saline. He was also started on empiric antibiotics due to the lab findings in the setting of immunosuppression. At this time he reports feeling well and has no complaints. Past Med Surg Social Fam HX - Past Medical History Medical history: asthma, cancer, COPD, coronary artery disease, hyperlipidemia, hypertension, myocardial infarction Additional medical history: Esophogel Cancer Psychiatric history: no psych history - Past Surgical History Surgical History: angioplasty/stent, cataract, coronary bypass (CABG) Additional surgical history: 5 stents - Social History Smoking Status: Former smoker Smokeless Tobacco Status: No Alcohol use: rarely Drug use: none - Family History Mother Living Status: Hx Family Cardiac Disorders: No Hx Family Respiratory Disorders: No Hx Family Cancer: No Hx Family GI Disorders: No Hx Family Endocrine Disorder: No Hx Family Neuromuscular Disorders: No Hx Family Neurologic Disorders: No Hx Family HEENT Disorders: No Hx Family Autoimmune Disorders: No Father Living Status: Hx Family Cardiac Disorders: Yes ([place]) Hx Family Respiratory Disorders: No Hx Family Cancer: No Hx Family GI Disorders: No Hx Family Endocrine Disorder: No Hx Family Neuromuscular Disorders: No Hx Family Neurologic Disorders: No Hx Family HEENT Disorders: No Hx Family Autoimmune Disorders: No Internal Medicine - H&P: Meds Aspirin 81 mg PO DAILY 01/21/16 [History] Atorvastatin [Lipitor] 40 mg PO HS 01/21/16 [History] Fenofibrate Nanocrystallized [Tricor] 145 mg PO DAILY 01/21/16 [History] Fexofenadine HCl [Allergy Relief] 180 mg PO DAILY PRN 01/21/16 [History] Folic Acid 1 mg PO DAILY 01/21/16 [History] Nitroglycerin [Nitrostat] 0.4 mg SL Q5M PRN 01/21/16 [History] Omeprazole [PriLOSEC] 20 mg PO DAILY 01/21/16 [History] Clopidogrel [Plavix] 75 mg PO DAILY 10/07/17 [History] Promethazine [Phenergan] 0.5 - 1 tab PO Q6HR PRN #30 tablet 10/08/17 [Rx] Metoprolol [Lopressor] 25 mg PO BID #60 tablet 10/29/17 [Rx] Ondansetron [Zofran ODT] 8 mg SL Q8H PRN 1 Days #60 tab 11/05/17 [Rx] Dutasteride [Avodart] 0.5 mg PO DAILY 11/25/17 [History] Fluticasone Propionate [Flovent Hfa] 1 inh IH BID 11/25/17 [History] Loperamide [Imodium] 2 mg PO Q4H PRN 11/25/17 [History] Magic Mouthwash [Magic Mouthwash BLM] 10 ml PO BID PRN 11/25/17 [History] Montelukast [Singulair] 10 mg PO DAILY 11/25/17 [History] Sucralfate [Carafate] 1 gm PO QID 11/25/17 [History] Tamsulosin [Flomax] 0.4 mg PO DAILY 11/25/17 [History] Triamcinolone Acet 0.1% OINT [Kenalog] 1 appl TP BID 11/25/17 [History] Acetaminophen [Tylenol] 325 mg PO Q6HR PRN tablet 12/01/17 [Rx] Calcium Carbonate [Tums] 1,000 mg PO Q4HR PRN tab.chew 12/01/17 [Rx] Lidocaine Viscous Oral Soln 15 ml MM TIDAC PRN solution 12/01/17 [Rx] Potassium Chloride Elixir [Potassium Chloride] 40 meq PO DAILY udc 12/01/17 [Rx] Potassium Chloride [Klor-Con] 40 meq PO BID #120 packet 12/23/17 [Rx] Allergy/AdvReac Type Severity Reaction Status Date / Time Penicillins [PCN] Allergy Hives Verified 12/26/17 14:33 All Systems PM: A 10-system review of systems was performed and is negative for pertinent findings except as documented above in the HPI. - Constitutional Vitals: Temp Pulse Resp BP Pulse Ox 97.9 F 101 18 132/75 94 12/26/17 20:42 12/26/17 20:42 12/26/17 20:42 12/26/17 20:42 12/26/17 20:42 Exam: Vitals: Reviewed General: NAD, stable appearing. Skin: Dry skin. HEENT: Dry mucous membranes. (+) conjunctivae pallor. Neck: No JVD. No carotid bruits. No palpable thyroid. Chest: Normal thoracic expansion. Normal breath sounds. Clear to auscultation. Heart: Normal S1 & S2; rhythmic. No rubs or murmurs. Abdomen: Non-distended, soft and non-tender to palpation. No peritoneal reaction. Extremities: No clubbing, cyanosis or edema. No calf tenderness. Normal distal pulses. Neurological: Awake, alert and oriented to person, place and time. No focal deficits. Psych: Affect appropriate. Internal Med - H&P Results - Labs CBC & Chem 7: 12/26/17 16:03 12/26/17 14:56 Labs: Short CBC 12/26/17 Range/Units 16:03 WBC 14.0 H D (4.3-11.1) K/mcL Hgb 11.9 L D (12.9-16.9) g/dL Hct 38.1 (37.5-50.1) % Plt Count 245 (140-400) K/mcL Neutrophils # 11.1 H (1.6-8.9) K/mcL BMP 12/26/17 14:56 Sodium 132 L Potassium 3.2 L Chloride 93 L Carbon Dioxide 26 BUN 11 Creatinine 0.72 Glucose 179 H Calcium 9.8 Cardiac Enzymes 12/26/17 Range/Units 14:56 Troponin I 0.03 (< 0.04) ng/mL Liver Function 12/26/17 Range/Units 17:13 Total Bilirubin 1.2 H (0.3-1.0) mg/dL Direct Bilirubin 0.4 H (0.0-0.2) mg/dL AST 26 (13-39) Units/L ALT 12 (7-52) Units/L Alkaline Phosphatase 86 (34-104) Units/L Albumin 3.3 L (3.5-5.7) g/dL Urine 12/26/17 Range/Units 16:50 Urine Color Yellow (Yellow) Urine Clarity Clear (Clear) Urine pH 7.5 (5.0-8.0) pH Units Ur Specific [place] 1.013 (1.010-1.025) Urine Protein Negative (Neg-Trace) mg/dL Urine Glucose (UA) Normal (Normal) mg/dL - Impressions ITS Impressions Chest X-Ray 12/26/17 14:34 IMPRESSION: No acute process. Decreased right upper lobe airspace disease most likely representing resolving pneumonia D/ / Robin Isbell MD / Robin Isbell MD Interpreting Provider: Robin Isbell MD - Assessment and plan (1) SIRS (systemic inflammatory response syndrome) Current Visit: Yes Status: Acute Assessment and plan: As evidenced by tachycardia, leukocytosis and lactic acid elevation. The patient appears rather dehydrated more so than anything else. He has no localizing signs of SSTI, UTI or PNA. There are no respiratory symtoms and his xray today is better than during his last admission. There may be an element of hem oconcentration from his dehydrated state as his Hgb is close to 12 from a baseline of 7-9 in addition to the increase in WBC. He has received empiric abx now however there is no indication to continue. Will observe clinically and assess his response to fluid resuscitation. Cultures obtained. Obtain a chest CT with contrast for better assessment. (2) Generalized weakness Current Visit: Yes Status: Acute Assessment and plan: Chief complaint today. Appears rather dehydrated. No signs on infection present. Will consult nutrition and place on IVF. (3) Hypokalemia Current Visit: Yes Status: Acute Assessment and plan: Seems to be a recurring issue. He refuses oral K supplementation. Will place in IVF and recheck. (4) Esophageal cancer Current Visit: Yes Status: Acute Assessment and plan: Following with oncology. Symptomatic therapies provided. Qualifiers: Malignant neoplasm of esophagus location: unspecified location Qualified Code(s): C15.9 - Malignant neoplasm of esophagus, unspecified (5) Anemia Current Visit: Yes Status: Chronic Assessment and plan: Of chronic disease. Appears stable. Qualifiers: Anemia type: unspecified type Qualified Code(s): D64.9 - Anemia, unspecified (6) Hyponatremia Current Visit: Yes Status: Chronic Assessment and plan: Will place on IV NS. (7) CAD (coronary artery disease) of artery bypass graft Current Visit: Yes Status: Chronic Assessment and plan: Stable with no signs of acute ischemic disease. Troponin negative. Qualifiers: [place] vs. transplanted heart: [place] heart Associated angina: without angina Qualified Code(s): I25.810 - Atherosclerosis of coronary artery bypass graft(s) without angina pectoris (8) DVT prophylaxis Current Visit: Yes Status: Acute Assessment and plan: SubQ heparin - Time Spent With Patient Total time spent is greater than 50% in coordination of care (as documented) at patient's floor/unit and/or counseling patient: Greater than 35 minutes
[2017-12-26] MEDS: 0.9 % Sodium Chloride w KCl 40 MEQ/1,000 ML MLS IVC SCH (22:01)
[2017-12-26] MEDS: *HR* Heparin 5,000 UNIT/ML VIAL SQ SCH (22:01)
[2017-12-26] MEDS: Sucralfate 1 GM TABLET PO SCH (22:02)
--- NOTE | 2017-12-27 00:32 | Event Note ---
Date of Encounter: 12/27/17 Time of Encounter: 00:31 As clinically suspected, the patients CT scan does not show any new lung lesions or consolidation concerning for pneumonia but just old scar tissue. It does show signs of gallbladder distension with wall thickening and edema, confirmed by me on review. Will place the patient NPO and order an abdominal ultrasound in the morning. Place the patient on PipTazo 3.375grs q8hrs empirically for now as if it is indeed acute cholecystitis, there is a risk of MDR organisms given his recent hospitalizations and immunosuppression.
[2017-12-27 04:51] LABS: Basophils % 0.3 %; Eosinophils % 0.3 %; Hematocrit 26.4 % (37.5-50.1); Immature Granulocytes % 0.3 % (0-4); Lymphocytes # 1.5 K/mcL (0.6-4.6); Lymphocytes % 23.6 %; Mean Corpuscular HGB Conc 32.6 g/dL (31.6-35.5); Mean Corpuscular Hemoglobin 31.5 pg (28.0-33.3); Mean Platelet Volume 9.9 fL (9.4-12.4); Monocytes # 0.9 K/mcL (0.0-1.3); Monocytes % 13.7 %; Neutrophils # 3.8 K/mcL (1.6-8.9); Platelet Count 223 K/mcL (140-400); Red Blood Count 2.73 M/mcL (4.19-5.50); Red Cell Distribution Width 22.4 % (11.5-14.5); Segmented Neutrophils % 61.8 %
[2017-12-27 04:52] LABS: Hemoglobin 8.6 g/dL (12.9-16.9); Mean Corpuscular Volume 96.7 fL (83.0-100.0)
[2017-12-27 05:12] LABS: BUN/Creatinine Ratio 18 (6-26); Blood Urea Nitrogen 10 mg/dL (8-23); Calcium 8.3 mg/dL (8.6-10.3); Carbon Dioxide 26 mEq/L (23-29); Chloride 102 mEq/L (98-107); Glucose 99 mg/dL (70-105); Osmolality,Calculated 275 (280-300); Potassium 3.1 mEq/L (3.5-5.1); Sodium 133 mEq/L (136-145); eGFR For Non-African Americans > 60 (> 60)
[2017-12-27] MEDS: 0.9 % Sodium Chloride w KCl 40 MEQ/1,000 ML MLS IVC SCH (05:44)
[2017-12-27] MEDS: *HR* Heparin 5,000 UNIT/ML VIAL SQ SCH ×3 (05:45→20:51)
[2017-12-27] MEDS ORDERED: Potassium Chloride Elixir 20 MEQ/15 ML UDC PO SCH (09:00)
[2017-12-27] MEDS: Piperacillin/Tazobactam 3.375 GM in 0.9 % Sodium Chloride Mini Bag 100 ML IVPB SCH ×2 (09:03→16:36)
[2017-12-27] MEDS: Folic Acid 1 MG TABLET PO SCH (09:03)
[2017-12-27] MEDS: Sucralfate 1 GM TABLET PO SCH ×4 (09:03→20:51)
[2017-12-27] MEDS: Aspirin 81 MG TAB.CHEW PO SCH (09:03)
[2017-12-27 11:19] LABS: Basophils % 0.4 %; Eosinophils % 0.6 %; Hematocrit 32.3 % (37.5-50.1); Hemoglobin 10.1 g/dL (12.9-16.9); Immature Granulocytes % 0.4 % (0-4); Lymphocytes # 1.7 K/mcL (0.6-4.6); Lymphocytes % 23.5 %; Mean Corpuscular HGB Conc 31.3 g/dL (31.6-35.5); Mean Corpuscular Hemoglobin 31.6 pg (28.0-33.3); Mean Corpuscular Volume 100.9 fL (83.0-100.0); Mean Platelet Volume 9.4 fL (9.4-12.4); Monocytes # 0.8 K/mcL (0.0-1.3); Monocytes % 11.4 %; Neutrophils # 4.6 K/mcL (1.6-8.9); Platelet Count 242 K/mcL (140-400); Red Cell Distribution Width 22.5 % (11.5-14.5); Segmented Neutrophils % 63.7 %
--- NOTE | 2017-12-27 14:46 | Internal Med Progress Note ---
Hospitalist Progress Note - Encounter Date of Encounter: 12/27/17 Time of Encounter: 14:48 - Subjective Interval History: SUBJECTIVE: The patient feels stronger. He tells me that he is ready to start regular diet. He tells me that he cannot take anything like potassium chloride or similar. Denies abdominal pain, nausea and vomiting. He has normal urination. OBJECTIVE: Skin: Free of rash and discoloration. ENMT: Oral/pharyngeal mucosa is normal in appearance. Eyes: Sclera is white. There is no discharge from eyes. Respiratory: Normal breath sounds; no crackles or wheezes. CV: Heart is regular; no gallop or murmur. GI: Abdomen is soft and not tender. There is no palpable mass or visceromegaly. Neuro: There is no focal deficits. ADDITIONAL DATA: Hemoglobin is 10.1; 9.8 4 days ago. Sodium is 133; 135 4 days ago. Potassium is 3.1. Creatinine is 0.55. Ultrasound of gallbladder shows cholelithiasis with porcelain gallbladder. There is no evidence of biliary obstruction. There is a normal ultrasound appearance of the liver, pancreas and right kidney. ASSESSMENT AND PLAN: The patient was admitted with SIRS/generalized weakness. There is no evidence for ongoing infection today. He is a generalized weakness is likely due to combination of anemia, hypokalemia and hyponatremia. He is getting a treatments for his esophageal cancer. He has underlying COPD. We will continue IV Zosyn for 1 day longer. We will continue IV normal saline with addition of potassium chloride. He is taking Prilosec and Carafate. We will switch him from nothing by mouth diet to regular diet. Coronary artery disease. Seems to be under control. We will continue Toprol-XL with Plavix, enteric coated aspirin and Lipitor. DISPOSITION: I am hoping to get him ready for discharge tomorrow. - Exam Vitals: Temp Pulse Resp BP Pulse Ox 97.6 F 84 16 133/72 96 12/27/17 11:25 12/27/17 11:25 12/27/17 11:25 12/27/17 11:25 12/27/17 11:25 Exam: xx - Assessment and Plan (1) SIRS (systemic inflammatory response syndrome) Current Visit: Yes Status: Acute (2) Generalized weakness Current Visit: Yes Status: Acute (3) Anemia Current Visit: Yes Status: Chronic (4) Hypokalemia Current Visit: Yes Status: Acute (5) Hyponatremia Current Visit: Yes Status: Chronic (6) Esophageal cancer Current Visit: Yes Status: Acute (7) CAD (coronary artery disease) of artery bypass graft Current Visit: Yes Status: Chronic - Time Spent with Patient Total time spent is greater than 50% in coordination of care (as documented) at patient's floor/unit and/or counseling patient: 25 - 35 minutes Plan of Care Discussed with: patient Internal Medicine: Result - Labs CBC & Chem 7: 12/27/17 11:02 12/27/17 04:07 Labs: Short CBC 12/26/17 12/27/17 12/27/17 Range/Units 16:03 04:07 11:02 WBC 14.0 H D 6.2 D 7.2 (4.3-11.1) K/mcL Hgb 11.9 L D 8.6 L D 10.1 L D (12.9-16.9) g/dL Hct 38.1 26.4 L 32.3 L (37.5-50.1) % Plt Count 245 223 242 (140-400) K/mcL Neutrophils # 11.1 H 3.8 4.6 (1.6-8.9) K/mcL BMP 12/26/17 12/27/17 14:56 04:07 Sodium 132 L 133 L Potassium 3.2 L 3.1 L Chloride 93 L 102 Carbon Dioxide 26 26 BUN 11 10 Creatinine 0.72 0.55 L Glucose 179 H 99 Calcium 9.8 8.3 L Cardiac Enzymes 12/26/17 Range/Units 14:56 Troponin I 0.03 (< 0.04) ng/mL Liver Function 12/26/17 Range/Units 17:13 Total Bilirubin 1.2 H (0.3-1.0) mg/dL Direct Bilirubin 0.4 H (0.0-0.2) mg/dL AST 26 (13-39) Units/L ALT 12 (7-52) Units/L Alkaline Phosphatase 86 (34-104) Units/L Albumin 3.3 L (3.5-5.7) g/dL Urine 12/26/17 Range/Units 16:50 Urine Color Yellow (Yellow) Urine Clarity Clear (Clear) Urine pH 7.5 (5.0-8.0) pH Units Ur Specific [place] 1.013 (1.010-1.025) Urine Protein Negative (Neg-Trace) mg/dL Urine Glucose (UA) Normal (Normal) mg/dL - ABG Interpretation ABG results: PT/INR, D-dimer PT 12.9 Seconds (9.4-12.1) H 12/26/17 14:56 - Impressions Impressions Chest X-Ray 12/26/17 14:34 IMPRESSION: No acute process. Decreased right upper lobe airspace disease most likely representing resolving pneumonia D/ / Robin Isbell MD / Robin Isbell MD Interpreting Provider: Robin Isbell MD Chest CT 12/26/17 21:05 IMPRESSION: 1. No new pulmonary mass or consolidation. Scattered areas of scarring in the bilateral lungs, right greater than left, are similar to the prior study. 2. Esophageal wall thickening with surrounding stranding is consistent with history of esophageal cancer. 3. No new or progressive mediastinal lymphadenopathy. 4. Small amount of perihepatic and pericholecystic fluid. Cholelithiasis with gallbladder wall thickening/edema. If there is concern for cholecystitis then gallbladder ultrasound may be helpful for further evaluation. D/ / Librado Brower / Librado Brower Interpreting Provider: Librado Brower Gallbladder Ultrasound 12/27/17 08:35 IMPRESSION: 1. Cholelithiasis with porcelain gallbladder 2. No evidence of biliary obstruction 3. Normal ultrasound appearance of the liver, pancreas, and right kidney D/ / Pool Kuhn MD / Pool Kuhn MD Interpreting Provider: Pool Kuhn MD Consult Discharge Plan - Plan Referrals: Andrea Rojas Jr, MD [Primary Care Provider] - (3) Anemia Qualifiers: Anemia type: unspecified type Qualified Code(s): D64.9 - Anemia, unspecified (6) Esophageal cancer Qualifiers: Malignant neoplasm of esophagus location: upper third Qualified Code(s): C15.3 - Malignant neoplasm of upper third of esophagus (7) CAD (coronary artery disease) of artery bypass graft Qualifiers: [place] vs. transplanted heart: [place] heart Associated angina: without angina Qualified Code(s): I25.810 - Atherosclerosis of coronary artery bypass graft(s) without angina pectoris
[2017-12-27 15:54] LABS: Basophils % 0.4 %; Eosinophils % 0.5 %; Hematocrit 28.6 % (37.5-50.1); Immature Granulocytes % 0.4 % (0-4); Lymphocytes # 1.3 K/mcL (0.6-4.6); Lymphocytes % 22.9 %; Mean Corpuscular HGB Conc 31.5 g/dL (31.6-35.5); Mean Corpuscular Hemoglobin 31.3 pg (28.0-33.3); Mean Corpuscular Volume 99.3 fL (83.0-100.0); Mean Platelet Volume 9.7 fL (9.4-12.4); Monocytes # 0.7 K/mcL (0.0-1.3); Monocytes % 12.2 %; Neutrophils # 3.6 K/mcL (1.6-8.9); Platelet Count 222 K/mcL (140-400); Red Blood Count 2.88 M/mcL (4.19-5.50); Red Cell Distribution Width 22.3 % (11.5-14.5); Segmented Neutrophils % 63.6 %
[2017-12-27] MEDS: Beclomethasone 80mcg MDI IH SCH (20:35)
[2017-12-27 22:04] LABS: Basophils % 0.2 %; Eosinophils % 0.4 %; Hematocrit 27.4 % (37.5-50.1); Hemoglobin 8.8 g/dL (12.9-16.9); Immature Granulocytes % 0.4 % (0-4); Lymphocytes # 1.2 K/mcL (0.6-4.6); Lymphocytes % 22.6 %; Mean Corpuscular HGB Conc 32.1 g/dL (31.6-35.5); Mean Corpuscular Hemoglobin 31.7 pg (28.0-33.3); Mean Corpuscular Volume 98.6 fL (83.0-100.0); Mean Platelet Volume 9.6 fL (9.4-12.4); Monocytes # 0.8 K/mcL (0.0-1.3); Monocytes % 14.7 %; Neutrophils # 3.1 K/mcL (1.6-8.9); Platelet Count 209 K/mcL (140-400); Red Blood Count 2.78 M/mcL (4.19-5.50); Red Cell Distribution Width 22.2 % (11.5-14.5); Segmented Neutrophils % 61.7 %
[2017-12-28] MEDS: Piperacillin/Tazobactam 3.375 GM in 0.9 % Sodium Chloride Mini Bag 100 ML IVPB SCH ×2 (00:52→08:30)
[2017-12-28 04:43] LABS: Basophils % 0.4 %; Eosinophils % 0.7 %; Hematocrit 26.1 % (37.5-50.1); Hemoglobin 8.5 g/dL (12.9-16.9); Immature Granulocytes % 0.5 % (0-4); Lymphocytes # 1.4 K/mcL (0.6-4.6); Mean Corpuscular HGB Conc 32.6 g/dL (31.6-35.5); Mean Corpuscular Volume 98.1 fL (83.0-100.0); Monocytes # 0.7 K/mcL (0.0-1.3); Monocytes % 12.1 %; Neutrophils # 3.3 K/mcL (1.6-8.9); Platelet Count 233 K/mcL (140-400); Red Blood Count 2.66 M/mcL (4.19-5.50); Red Cell Distribution Width 21.6 % (11.5-14.5); Segmented Neutrophils % 60.3 %
[2017-12-28 05:00] LABS: BUN/Creatinine Ratio 19 (6-26); Blood Urea Nitrogen 10 mg/dL (8-23); Carbon Dioxide 24 mEq/L (23-29); Chloride 102 mEq/L (98-107); Glucose 90 mg/dL (70-105); Osmolality,Calculated 275 (280-300); Sodium 133 mEq/L (136-145); eGFR For Non-African Americans > 60 (> 60)
[2017-12-28] MEDS: *HR* Heparin 5,000 UNIT/ML VIAL SQ SCH (05:34)
[2017-12-28 06:52] VITALS: BP 134/73
[2017-12-28] MEDS: Beclomethasone 80mcg MDI IH SCH (07:24)
[2017-12-28] MEDS ORDERED: Sucralfate 1 GM TABLET PO SCH (07:45)
[2017-12-28] MEDS: Folic Acid 1 MG TABLET PO SCH (08:29)
[2017-12-28] MEDS: Aspirin 81 MG TAB.CHEW PO SCH (08:30)
--- NOTE | 2017-12-28 10:42 | Discharge Summary ---
- NOTES TO OUTPATIENT PROVIDER Notes to Outpatient Provider: Please check BMP/magnesium periodically; starting a few days after the discharge. Orders not resulted at time of discharge: Pending orders 12/26/17 17:13 Culture,Blood [BC] Stat 12/27/17 04:07 Culture,Blood [BC] AM 0400 Date of Encounter: 12/28/17 Time of Encounter: 10:40 - Discharge Diagnosis (1) SIRS (systemic inflammatory response syndrome) Priority: Primary Status: Acute (2) Generalized weakness Priority: Primary Status: Acute (3) Anemia Priority: Secondary Status: Chronic Qualifiers: Anemia type: unspecified type Qualified Code(s): D64.9 - Anemia, unspecified (4) Hypokalemia Priority: Secondary Status: Acute (5) Hyponatremia Priority: Secondary Status: Chronic (6) Esophageal cancer Priority: Secondary Status: Chronic Qualifiers: Malignant neoplasm of esophagus location: upper third Qualified Code(s): C15.3 - Malignant neoplasm of upper third of esophagus (7) CAD (coronary artery disease) of artery bypass graft Priority: Secondary Status: Chronic Qualifiers: [place] vs. transplanted heart: [place] heart Associated angina: without angina Qualified Code(s): I25.810 - Atherosclerosis of coronary artery bypass graft(s) without angina pectoris Hospital course: HOSPITAL COURSE: The patient is an 82-year-old male. He has underlying distal esophageal moderately differentiated adenocarcinoma. It is treated with chemo and radiation therapy. Shortly before this hospitalization he was treated here for cytopenia/dehydration/deconditioning. This time he complained of severe generalized weakness at admission. He could not sleep in the night preceding the admission. We found him to have SIRS; without any source of infection. We found him to be hypokalemic and mildly hyponatremic. We gave him 1 L of lactated Ringer's solution. It was followed by normal saline with addition of potassium chloride. The patient could not take any preparations of oral potassium chloride. He got 1 dose of cefepime and 1 dose of vancomycin in the emergency department. Then, we started him on IV Zosyn. The patient was afebrile during this hospitalization. His WBC of 14.0 thousand decreased to 5.5 thousand on the day of discharge. We got him feeling significantly better. He has no problems with eating. He ambulates on his own. CONDITION AT DISCHARGE: He feels weak but stronger than at admission. He ambulates on his own. Denies chest pain and difficulty breathing. Denies coughing and wheezing. Denies abdominal pain, nausea and vomiting. He makes fair amounts of urine (and now urinary symptoms). Skin: Free of rash and discoloration. Respiratory: Normal breath sounds with no crackles and wheezes bilaterally. CV: Heart is regular with no gallop or murmur. GI: Abdomen is flat and soft with no palpable mass or visceromegaly. Neuro exam: There is no focal deficits. Normal speech, swallowing and gait. SEE DISCHARGE ORDERS/MEDICATIONS.. Discharge discussed with: patient, nurse - Time Spent with Patient Total time spent providing and/or coordinating discharge services: Greater than 30 minutes (40 minutes..) - Discharge Medications Home Medications: Aspirin 81 mg PO DAILY 01/21/16 [History] Atorvastatin [Lipitor] 40 mg PO HS 01/21/16 [History] Fenofibrate Nanocrystallized [Tricor] 145 mg PO DAILY 01/21/16 [History] Fexofenadine HCl [Allergy Relief] 180 mg PO DAILY PRN 01/21/16 [History] Folic Acid 1 mg PO DAILY 01/21/16 [History] Nitroglycerin [Nitrostat] 0.4 mg SL Q5M PRN 01/21/16 [History] Omeprazole [PriLOSEC] 20 mg PO DAILY 01/21/16 [History] Clopidogrel [Plavix] 75 mg PO DAILY 10/07/17 [History] Metoprolol [Lopressor] 25 mg PO BID #60 tablet 10/29/17 [Rx] Ondansetron [Zofran ODT] 8 mg SL Q8H PRN 1 Days #60 tab 11/05/17 [Rx] Fluticasone Propionate [Flovent Hfa] 1 inh IH BID 11/25/17 [History] Loperamide [Imodium] 2 mg PO Q4H PRN MDD 16MG/DAY 11/25/17 [History] Magic Mouthwash [Magic Mouthwash BLM] 10 ml PO TIDAC 11/25/17 [History] Sucralfate [Carafate] 1 gm PO QID 11/25/17 [History] Tamsulosin [Flomax] 0.4 mg PO DAILY 11/25/17 [History] Triamcinolone Acet 0.1% OINT [Kenalog] 1 appl TP BID 11/25/17 [History] Acetaminophen [Tylenol] 325 mg PO Q6HR PRN tablet 12/01/17 [Rx] Calcium Carbonate [Tums] 1,000 mg PO Q4HR PRN tab.chew 12/01/17 [Rx] Bisacodyl [Dulcolax] 5 mg PO DAILY PRN 12/27/17 [History] Dronabinol [Marinol] 5 mg PO TID 12/27/17 [History] Allergies/Adverse Reactions: Allergy/AdvReac Type Severity Reaction Status Date / Time Penicillins [PCN] Allergy Hives Verified 12/26/17 14:33 Date of admission: 12/26/17 20:56 Primary care physician: Andrea Rojas Jr, MD Discharging clinician: Abdulaziz Monterroso Anticipated date of discharge: 12/28/17 - Constitutional Vitals: Temp Pulse Resp BP Pulse Ox 98.0 F 95 16 134/73 95 12/28/17 06:50 12/28/17 06:50 12/28/17 07:24 12/28/17 06:50 12/28/17 07:24 General appearance: Present: A&O X 3, no acute distress, answers questions appropriately Exam: xx - Patient Status Disposition: Home, Self-Care Condition: Good Functional capacity at discharge: independent ambulation - Discharge Instructions Follow Up With: Andrea Rojas Jr, MD [Primary Care Provider] - (Web requested 12/28/2017) Pilo Lloyd MD [Partnered Physician] - 03/24/18 10:45 am (Please follow up as schedule...) Additional Instructions: FOLLOW-UP WITH HIS ONCOLOGIST -- SCHEDULED BEFORE.. - Diet and Activity Activity: increase activity as tolerated Diet: low fat, low cholesterol - VTE Deep Vein Thrombosis/Pulmonary Embolism Present on Admission: No
[2017-12-28] MEDS ORDERED: 0.9 % Sodium Chloride 250 ML ONE (12:43)
--- NOTE | 2017-12-29 19:10 | Electrocardiograph Report ---
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
== END 2017-12-28 15:32 | disposition home or self-care (01) | DRG 375 ==
LOC: 2ANU 14:24 → EMEROOARM 14:24 → 2ANU 20:15 → SUATTDRO 20:56
PROVIDERS: ADMIT Internal Medicine; ATTEND Internal Medicine